=== PATIENT | female | born 1950 | race African-American/Black ===

== ENCOUNTER → 2016-12-29 | Outpatient (CLI) | payer MEDICARE, OTHER ==
--- NOTE | 2016-12-29 16:38 | US ---
EXAMINATION TYPE: US thyroid st tissue head/neck DATE OF EXAM: 12/29/2016 COMPARISON: NONE CLINICAL HISTORY: E04.1 Lt Small Nodule. Possible thyroid nodule, Pt states she has been on thyroid m eds x many years GLAND SIZE: Right Lobe: 2.1 x 0.4 x 0.5 cm Overall Parenchyma: heterogenous Left Lobe: 2.1 x 0.4 x 0.4 cm Overall Parenchyma: heterogeneous Isthmus Thickness: 0.2 cm NODULES RIGHT: # of nodules measured on right: 0 LEFT: # of nodules measured on left: 0 ISTHMUS: # of nodules measured in the isthmus: 0 Bilateral neck scanned, no evidence of lymphadenopathy. Bilateral thyroid small in size and heterogen eous, no evidence of nodules IMPRESSION: Thyroid gland diminutive in size and heterogeneous correlate for thyroiditis. No sizable nodules.
== END | disposition home or self-care (01) ==
LOC: RADUSWWP 16:06
PROVIDERS: ATTEND Family Medicine
DX: E07.89 Other specified disorders of thyroid (principal)
CPT/HCPCS: 76536

== ENCOUNTER 2019-06-25 19:56 | Inpatient (IN) | payer MEDICARE, OTHER ==
[2019-06-25 20:36] LABS: Basophils % (A) 0 %; Eosinophils # (A) 0.2 k/uL (0-0.7); Eosinophils % (A) 2 %; HCT 47.1 % (34.0-46.0); HGB 15.1 gm/dL (11.4-16.0); Lymphocytes # (A) 1.2 k/uL (1.0-4.8); Lymphocytes % (A) 9 %; MCH 29.4 pg (25.0-35.0); MCHC 32.2 g/dL (31.0-37.0); MCV 91.4 fL (80.0-100.0); Mean Platelet Volume 8.4; Monocytes # (A) 0.4 k/uL (0-1.0); Monocytes % (A) 3 %; Neutrophils # (A) 11.6 k/uL (1.3-7.7); Neutrophils % (A) 86 %; Platelet Count 395 k/uL (150-450); RBC 5.15 m/uL (3.80-5.40); WBC 13.5 k/uL (3.8-10.6)
[2019-06-25 20:44] LABS: Albumin 4.6 g/dL (3.5-5.0); Calcium 10.4 mg/dL (8.4-10.2); Magnesium 1.6 mg/dL (1.6-2.3); Partial Thromboplastin Time 22.9 sec (22.0-30.0); Potassium 2.9 mmol/L (3.5-5.1); Prothrombin Time 10.7 sec (9.0-12.0); Total Bilirubin 1.5 mg/dL (0.2-1.3); Total Protein 8.4 g/dL (6.3-8.2)
[2019-06-25] MEDS ORDERED: IPRATROPIUM-ALBUTEROL 3 ML NEB INHALATION STA (20:48)
--- NOTE | 2019-06-25 21:01 | XR ---
EXAMINATION TYPE: XR chest 2V DATE OF EXAM: 06/25/2019 COMPARISON: 11/10/2009 HISTORY: Chest pain TECHNIQUE: Single view FINDINGS: Heart and mediastinum are normal. Lungs are clear. Diaphragm is normal. Bony thorax is inta ct. IMPRESSION: No active cardiopulmonary disease. Normal chest. No adverse change compared to old exam.
[2019-06-25] MEDS ORDERED: MAGNESIUM SULFATE-D5W PMX 1 GM in DEXTROSE/WATER 1 100ML.BAG IVPB ONE ×2 (21:55→23:13)
[2019-06-25] MEDS ORDERED: SODIUM CHLORIDE 0.9% 1,000 ML IV STA (22:19)
[2019-06-25] MEDS: POTASSIUM CHLORIDE ER 20 MEQ TAB.ER PO STA ×2 (22:45→22:56)
--- NOTE | 2019-06-25 23:01 | ED ---
General Adult HPI - General Chief complaint: Recheck/Abnormal Lab/Rx Stated complaint: Chest Pain Time Seen by Provider: 06/25/19 20:00 Source: patient, family, EMS, RN notes reviewed, old records reviewed Mode of arrival: EMS Limitations: no limitations - History of Present Illness Initial comments: This is a 68-year-old female with a history of COPD who was sent here from [place] because of concerns for a STEMI. Patient went there because she's been having upper respiratory symptoms for the past week or 2 with shortness of breath is getting progressively worse. She had a cough with clear phlegm no overt fevers chills or sweats she is tired all the time and has some decrease oral intake. No overt chest pain no peripheral edema no other modifying factors at this time. - Related Data Home Medications Medication Instructions Recorded Confirmed Levothyroxine Sodium [Synthroid] 175 mcg PO DAILY 06/25/19 06/25/19 Simvastatin [Zocor] 20 mg PO DAILY 06/25/19 06/25/19 amLODIPine [Norvasc] 10 mg PO DAILY 06/25/19 06/25/19 Allergies Allergy/AdvReac Type Severity Reaction Status Date / Time No Known Allergies Allergy Verified 06/25/19 23:00 Review of Systems ROS Statement: Those systems with pertinent positive or pertinent negative responses have been documented in the HPI. ROS Other: All systems not noted in ROS Statement are negative. Past Medical History Past Medical History: Hyperlipidemia, Hypertension, Pneumonia History of Any Multi-Drug Resistant Organisms: None Reported Past Surgical History: No Surgical Hx Reported Past Psychological History: No Psychological Hx Reported Smoking Status: Light tobacco smoker Past Alcohol Use History: None Reported Past Drug Use History: None Reported General Exam - General Exam Comments Initial Comments: This is a well-developed asthenic appearing female who is awake alert but yvonne ewhat lethargic she is noted to be very tachycardic Limitations: no limitations General appearance: alert, lethargic Head exam: Present: atraumatic, normocephalic, normal inspection Eye exam: Present: normal appearance, PERRL, EOMI. Absent: scleral icterus, conjunctival injection, periorbital swelling ENT exam: Present: mucous membranes dry Neck exam: Present: normal inspection, full ROM, other (No stridor JVD or bruits) Respiratory exam: Present: accessory muscle use, decreased breath sounds. Absent: respiratory distress, wheezes, rales, rhonchi, stridor Cardiovascular Exam: Present: normal rhythm, tachycardia, normal heart sounds. Absent: systolic murmur, diastolic murmur, rubs, gallop, clicks GI/Abdominal exam: Present: soft, normal bowel sounds. Absent: distended, tenderness, guarding, rebound, rigid Extremities exam: Present: normal inspection, full ROM, normal capillary refill. Absent: tenderness, pedal edema, joint swelling, calf tenderness Back exam: Present: normal inspection Neurological exam: Present: alert, oriented X3, CN II-XII intact Psychiatric exam: Present: normal affect, normal mood Skin exam: Present: warm, dry, intact, normal color. Absent: rash Course Vital Signs 06/25/19 06/25/19 06/25/19 19:59 20:56 21:00 Temperature 97.8 F Pulse Rate 135 H 134 H Respiratory 16 16 Rate Blood Pressure 144/98 O2 Sat by Pulse 100 Oximetry 06/25/19 06/25/19 06/25/19 21:06 22:00 22:56 Temperature 97.6 F Pulse Rate 134 H 140 H Respiratory 22 16 Rate Blood Pressure 140/85 O2 Sat by Pulse 96 Oximetry - Reevaluation(s) Reevaluation #1: 06/25/19 23:07 Reevaluation the patient after the initial encounter reveals some slight improvement in her aeration. She was noted however to be hypo-ketonemia awake and borderline hypomagnesemia. She is still tachycardic on the monitor. Medical Decision Making - Medical Decision Making I did discuss the findings with patient family as well as with Dr. Feliz. Patient be admitted for continued treatment of COPD exacerbation dehydration and electrolyte imbalance. - Lab Data Result diagrams: 06/25/19 20:05 06/25/19 20:05 Lab Results 06/25/19 06/25/19 06/25/19 Range/Units 20:05 20:05 20:05 WBC 13.5 H (3.8-10.6) k/uL RBC 5.15 (3.80-5.40) m/uL Hgb 15.1 (11.4-16.0) gm/dL Hct 47.1 H (34.0-46.0) % MCV 91.4 (80.0-100.0) fL MCH 29.4 (25.0-35.0) pg MCHC 32.2 (31.0-37.0) g/dL RDW 14.0 (11.5-15.5) % Plt Count 395 (150-450) k/uL Neutrophils % 86 % Lymphocytes % 9 % Monocytes % 3 % Eosinophils % 2 % Basophils % 0 % Neutrophils # 11.6 H (1.3-7.7) k/uL Lymphocytes # 1.2 (1.0-4.8) k/uL Monocytes # 0.4 (0-1.0) k/uL Eosinophils # 0.2 (0-0.7) k/uL Basophils # 0.0 (0-0.2) k/uL PT (9.0-12.0) sec INR (<1.2) APTT (22.0-30.0) sec Sodium 144 (137-145) mmol/L Potassium 2.9 L (3.5-5.1) mmol/L Chloride 90 L (98-107) mmol/L Carbon Dioxide 28 (22-30) mmol/L Anion Gap 26 mmol/L BUN 6 L (7-17) mg/dL Creatinine 1.49 H (0.52-1.04) mg/dL Est GFR (CKD-EPI)AfAm 42 (>60 ml/min/1.73 sqM) Est GFR (CKD-EPI)NonAf 36 (>60 ml/min/1.73 sqM) Glucose 118 H (74-99) mg/dL Calcium 10.4 H (8.4-10.2) mg/dL Magnesium 1.6 (1.6-2.3) mg/dL Total Bilirubin 1.5 H (0.2-1.3) mg/dL AST 45 H (14-36) U/L ALT 23 (9-52) U/L Alkaline Phosphatase 123 (38-126) U/L Creatine Kinase 46 (30-135) U/L Troponin I (0.000-0.034) ng/mL NT-Pro-B Natriuret Pep 1240 pg/mL Total Protein 8.4 H (6.3-8.2) g/dL Albumin 4.6 (3.5-5.0) g/dL Lipase 106 (23-300) U/L 06/25/19 06/25/19 Range/Units 20:05 20:05 WBC (3.8-10.6) k/uL RBC (3.80-5.40) m/uL Hgb (11.4-16.0) gm/dL Hct (34.0-46.0) % MCV (80.0-100.0) fL MCH (25.0-35.0) pg MCHC (31.0-37.0) g/dL RDW (11.5-15.5) % Plt Count (150-450) k/uL Neutrophils % % Lymphocytes % % Monocytes % % Eosinophils % % Basophils % % Neutrophils # (1.3-7.7) k/uL Lymphocytes # (1.0-4.8) k/uL Monocytes # (0-1.0) k/uL Eosinophils # (0-0.7) k/uL Basophils # (0-0.2) k/uL PT 10.7 (9.0-12.0) sec INR 1.0 (<1.2) APTT 22.9 (22.0-30.0) sec Sodium (137-145) mmol/L Potassium (3.5-5.1) mmol/L Chloride (98-107) mmol/L Carbon Dioxide (22-30) mmol/L Anion Gap mmol/L BUN (7-17) mg/dL Creatinine (0.52-1.04) mg/dL Est GFR (CKD-EPI)AfAm (>60 ml/min/1.73 sqM) Est GFR (CKD-EPI)NonAf (>60 ml/min/1.73 sqM) Glucose (74-99) mg/dL Calcium (8.4-10.2) mg/dL Magnesium (1.6-2.3) mg/dL Total Bilirubin (0.2-1.3) mg/dL AST (14-36) U/L ALT (9-52) U/L Alkaline Phosphatase (38-126) U/L Creatine Kinase (30-135) U/L Troponin I 0.027 (0.000-0.034) ng/mL NT-Pro-B Natriuret Pep pg/mL Total Protein (6.3-8.2) g/dL Albumin (3.5-5.0) g/dL Lipase (23-300) U/L - EKG Data -: EKG Interpreted by Me (Sinus tachycardia rate 139 WA interval 164 QRS 58 daily since QTC to 48/377) EKG Comments: Sinus tachycardia 139. Interval 164 QRS 58 QT/QTc to 48/377 right atrial enlargement nonspecific ST-T wave configuration inferior and anterior leads this is compared with prior EKGs as well as low submitted from the clinic. - Radiology Data Radiology results: report reviewed (I did review the imaging and report no acute findings), image reviewed Disposition Clinical Impression: COPD with exacerbation, Dehydration, Hypokalemia Disposition: ADMITTED IP TO THIS HOSP Condition: Fair Referrals: Kirk Feliz MD [Primary Care Provider] - 1-2 days
[2019-06-25] MEDS ORDERED: POTASSIUM CHLORIDE 20 MEQ in WATER FOR INJECTION 1 100ML.BAG IVPB ONE (23:30)
[2019-06-26] MEDS: SODIUM CHLORIDE 0.9% 1,000 ML IV SCH ×4 (00:10→23:44)
[2019-06-26] MEDS: methylPREDNISolone SOD SUCCI 125 MG/2 ML VIAL IV SCH ×5 (02:27→23:45)
[2019-06-26] MEDS: IPRATROPIUM-ALBUTEROL 3 ML NEB INHALATION SCH ×4 (04:00→11:16)
[2019-06-26] MEDS ORDERED: HEPARIN SODIUM,PORCINE 5,000 UNIT/ML 1 ML VIAL IV PRN (04:51)
[2019-06-26] MEDS ORDERED: HEPARIN SOD,PORK IN 0.45% NACL 25,000 UNIT in 0.45% NACL 1 250ML.BAG IV SCH (05:00)
[2019-06-26] MEDS ORDERED: LEVOTHYROXINE 75 MCG TAB PO SCH (06:30)
[2019-06-26 07:16] LABS: Basophils % (A) 0 %; Eosinophils # (A) 0.1 k/uL (0-0.7); Eosinophils % (A) 1 %; HCT 42.6 % (34.0-46.0); HGB 13.8 gm/dL (11.4-16.0); Lymphocytes # (A) 0.9 k/uL (1.0-4.8); Lymphocytes % (A) 6 %; MCH 29.7 pg (25.0-35.0); MCHC 32.3 g/dL (31.0-37.0); MCV 91.8 fL (80.0-100.0); Mean Platelet Volume 9.3; Monocytes # (A) 0.5 k/uL (0-1.0); Monocytes % (A) 3 %; Neutrophils # (A) 13.5 k/uL (1.3-7.7); Neutrophils % (A) 90 %; Platelet Count 308 k/uL (150-450); RBC 4.64 m/uL (3.80-5.40); RDW 13.9 % (11.5-15.5)
[2019-06-26 11:58] LABS: T4, Free (Free Thyroxine) 2.52 ng/dL (0.78-2.19)
[2019-06-26] MEDS: ATORVASTATIN 10 MG TAB PO SCH (14:47)
[2019-06-26] MEDS: LEVOTHYROXINE 100 MCG TAB PO SCH (14:47)
[2019-06-26] MEDS: amLODIPine 10 MG TAB PO SCH (14:47)
--- NOTE | 2019-06-26 15:43 | P.CRDCN ---
History of Present Illness Consult date: 06/26/19 Requesting physician: Kirk Feliz Reason for Consult (text): Sinus tachycardia Chief complaint: Shortness of breath History of present illness: This is a 68-year-old -[place] female with history of COPD, nicotine dependence, hypothyroidism, hypertension, hyperlipidemia, who felt over the past few days that she's been having cold, [facility], and possibly get started on an antibiotic. She's been having upper respiratory symptoms as well as associated chills and cough. She states that she's been coughing up clear sputum for the most part. She's been extremely tired as well over the past few days. She denies any chest discomfort, has been somewhat short of breath, denies any palpitations or feeling her heart racing. Apparently at the [facility] they were concerned about the patient's EKG and recommended she come to the hospital for further evaluation and treatment. Chest x-ray on presentation here did not show any active cardiopulmonary disease. Initial EKG showed a sinus tachycardia with nonspecific ST-T wave changes. Blood pressure 128/60 with a heart rate in the 1:30 range, 99% on room air. Afebrile. White blood cell count 13.5 on admission, 15 today, hemoglobin 13.8, platelet count 308. Sodium 144, potassium 2.9, chloride 90, CO2 28, BUN 6, creatinine 1.4, magnesium 1.6, total bilirubin 1.5, AST 45 ALT 23 BNP 1240. Troponin 0.07, 0.051, 0.034. TSH less than 0.015 with a free T4 of 2.5. Patient is currently on Norvasc 10 mg daily, Lipitor 10 mg daily, IV heparin, albuterol, Synthroid 175 g daily, magnesium replacement was given, she's also on IV Solu-Medrol, potassium was also replaced per protocol. She continues to have a heart rate in the 130 range at the time of our examination. We will discontinue the albuterol at this time because of the tachycardia, we will also decrease the dose of Synthroid the patient is receiving, she is currently on 175 g, we will decrease that to 100 g. Continue IV fluids at 100 mL per hour. Obtain echocardiogram with Doppler study. Overall at the time of my examination, patient other than feeling tired had no overt complaints. Past Medical History Past Medical History: Asthma, Eye Disorder, Hyperlipidemia, Hypertension, Pneumonia, Thyroid Disorder Additional Past Medical History / Comment(s): Bronchitis, hypothyroid, L eye glaucoma. History of Any Multi-Drug Resistant Organisms: None Reported Past Surgical History: Tubal Ligation Past Anesthesia/Blood Transfusion Reactions: No Reported Reaction Smoking Status: Light tobacco smoker - Past Family History Father History Unknown: Yes Additional Family Medical History / Comment(s): Father when pt was a baby Mother Family Medical History: No Reported History Additional Family Medical History / Comment(s): Mother was healthy. She is . Medications and Allergies Home Medications Medication Instructions Recorded Confirmed Type Levothyroxine Sodium [Synthroid] 175 mcg PO DAILY 06/25/19 06/25/19 History Simvastatin [Zocor] 20 mg PO DAILY 06/25/19 06/25/19 History amLODIPine [Norvasc] 10 mg PO DAILY 06/25/19 06/25/19 History Allergies Allergy/AdvReac Type Severity Reaction Status Date / Time No Known Allergies Allergy Verified 06/25/19 23:00 Physical Exam Vitals: Vital Signs Temp Pulse Pulse Resp BP BP Pulse Ox 06/26/19 14:56 97.9 F 140 H 18 128/65 99 06/26/19 11:25 130 H 06/26/19 11:16 123 H 06/26/19 11:00 135 H 16 119/72 100 06/26/19 09:42 128 H 06/26/19 09:40 128 H 18 128/75 100 06/26/19 08:14 126 H 18 127/73 06/26/19 08:00 126 H 20 127/73 100 06/26/19 07:00 129 H 7 L 127/73 100 06/26/19 06:41 129 H 18 127/73 100 06/26/19 06:00 130 H 13 134/79 100 06/26/19 05:45 98.6 F 130 H 19 134/79 100 06/26/19 05:00 125 H 17 133/80 100 06/26/19 04:01 124 H 06/26/19 04:00 125 H 6 L 133/80 06/26/19 03:53 125 H 19 126/76 100 06/26/19 03:00 134 H 10 L 126/76 100 06/26/19 02:00 131 H 131 H 18 136/83 100 06/26/19 01:33 131 H 19 136/83 100 06/26/19 01:00 129 H 15 100 06/26/19 00:41 135 H 9 L 100 06/26/19 00:16 129 H 16 134/80 100 06/25/19 23:21 97.9 F 132 H 20 142/86 100 06/25/19 22:56 97.6 F 140 H 16 140/85 96 06/25/19 22:00 22 06/25/19 21:06 134 H 06/25/19 21:00 16 06/25/19 20:56 134 H 06/25/19 19:59 97.8 F 135 H 16 144/98 100 Intake and Output 06/26/19 06/26/19 06/26/19 06:59 14:59 22:59 Intake Total 70.355 0 Balance 70.355 0 Intake: Intake, IV Titration 70.355 0 Amount Heparin Sod,Pork in 0.45% 70.355 0 NaCl 25,000 unit In 0.45 % NaCl 1 250ml.bag @ 18 UNITS/KG/HR 8.165 mls/hr IV .Q24H [facility] Rx#: [id number] Other: Weight 45.359 kg PHYSICAL EXAMINATION: GENERAL: 68-year-old frail and thin -Iraqi female in no acute distress at the time of my examination HEENT: Head is atraumatic, normocephalic. Pupils equal, round. Sclera anicteric. Conjunctiva are clear. Mucous membranes of the mouth are moist. Neck is supple. There is no elevated jugular venous pressure. No carotid bruit is heard. HEART EXAMINATION: Heart S1 and S2 tachycardic CHEST EXAMINATION: Lungs reveal diminished air entry to the bases with fine wheezing heard ABDOMEN: Soft, nontender. Bowel sounds are heard. No organomegaly noted. EXTREMITIES: 2+ peripheral pulses with no evidence of peripheral edema and no calf tenderness noted. NEUROLOGIC patient is awake, alert and oriented 3 . Results 06/26/19 05:37 06/25/19 20:05 Cardiac Enzymes 06/25/19 06/25/19 06/26/19 Range/Units 20:05 20:05 02:57 AST 45 H (14-36) U/L Troponin I 0.027 0.051 H* (0.000-0.034) ng/mL 06/26/19 Range/Units 12:06 AST (14-36) U/L Troponin I 0.034 (0.000-0.034) ng/mL Coagulation 06/25/19 06/26/19 Range/Units 20:05 12:06 PT 10.7 (9.0-12.0) sec APTT 22.9 89.3 H (22.0-30.0) sec CBC 06/25/19 06/26/19 Range/Units 20:05 05:37 WBC 13.5 H 15.0 H (3.8-10.6) k/uL RBC 5.15 4.64 (3.80-5.40) m/uL Hgb 15.1 13.8 (11.4-16.0) gm/dL Hct 47.1 H 42.6 (34.0-46.0) % Plt Count 395 308 (150-450) k/uL Comprehensive Metabolic Panel 06/25/19 Range/Units 20:05 Sodium 144 (137-145) mmol/L Potassium 2.9 L (3.5-5.1) mmol/L Chloride 90 L (98-107) mmol/L Carbon Dioxide 28 (22-30) mmol/L BUN 6 L (7-17) mg/dL Creatinine 1.49 H (0.52-1.04) mg/dL Glucose 118 H (74-99) mg/dL Calcium 10.4 H (8.4-10.2) mg/dL AST 45 H (14-36) U/L ALT 23 (9-52) U/L Alkaline Phosphatase 123 (38-126) U/L Total Protein 8.4 H (6.3-8.2) g/dL Albumin 4.6 (3.5-5.0) g/dL Current Medications Generic Name Dose Route Start Last Admin Trade Name Freq PRN Reason Stop Dose Admin Albuterol/Ipratropium 3 ml 06/26/19 00:00 06/26/19 11:16 Duoneb 0.5 Mg-3 Mg/3 Ml Soln INHALATION 3 ml RT-Q4H ROD Administration Amlodipine Besylate 10 mg 06/26/19 09:00 06/26/19 14:47 Norvasc PO 10 mg DAILY ROD Administration Atorvastatin Calcium 10 mg 06/26/19 09:00 06/26/19 14:47 Lipitor PO 10 mg DAILY ROD Administration Heparin Sodium (Porcine) 0 unit 06/26/19 04:51 Heparin IV PER PROTOCOL PRN Low PTT Protocol Sodium Chloride 1,000 mls @ 100 mls/hr 06/25/19 23:15 06/26/19 14:47 Saline 0.9% IV 100 mls/hr .Q10H ROD Administration Heparin Sodium/Sodium Chloride 250 mls @ 8.165 mls/hr 06/26/19 05:00 06/26/19 15:12 25,000 unit/ Sodium Chloride IV 11.38 units/kg/hr .Q24H ROD 5.16 mls/hr Titration Protocol 18 UNITS/KG/HR Levothyroxine Sodium 100 mcg 06/26/19 06:30 06/26/19 14:47 Synthroid PO 100 mcg DAILY@0630 ROD Administration Levothyroxine Sodium 75 mcg 06/26/19 06:30 06/26/19 14:46 Synthroid PO 75 mcg DAILY@0630 ROD Administration Methylprednisolone Sodium Succinate 60 mg 06/26/19 00:00 06/26/19 14:46 Solu-Medrol IV 60 mg Q6HR ROD Administration Intake and Output 06/26/19 06/26/19 06/26/19 06:59 14:59 22:59 Intake Total 70.355 0 Balance 70.355 0 Intake: Intake, IV Titration 70.355 0 Amount Heparin Sod,Pork in 0.45% 70.355 0 NaCl 25,000 unit In 0.45 % NaCl 1 250ml.bag @ 18 UNITS/KG/HR 8.165 mls/hr IV .Q24H [facility] Rx#: [id number] Other: Weight 45.359 kg Patient Weight 06/27/19 06:59 Weight 45.359 kg 06/26/19 05:37 06/25/19 20:05 EKG Interpretations (text) EKG shows a sinus tachycardia Assessment and Plan Plan: Assessment and plan #1 symptoms of upper respiratory congestion with associated cough and mild chills at home, possible acute tracheobronchitis #2 shortness of breath, mildly elevated BNP level suggesting mild congestive heart failure, could be secondary to persistent tachycardia #3 sinus tachycardia with a heart rate in the 1:30 range #4 her hypothyroidism, TSH 0.015 with a free T4 of 2.5, patient was taking 175 g of Synthroid daily #5 history of hypothyroidism #6 renal insufficiency, likely secondary to dehydration #7 hypokalemia, potassium 2.9 on admission #8 hypomagnesemia #9 abnormal troponin, likely secondary to tachycardia Plan We will obtain an echocardiogram with Doppler study. We will also decrease the dose of Synthroid to 100 g daily. Discontinue albuterol, replace magnesium and potassium. Continue IV fluids at 100 mL per hour. Check lytes BUN creatinine and magnesium in the morning. Further recommendations to follow. DNP note has been reviewed, I agree with a documented findings and plan of care. Patient was seen and examined.
--- NOTE | 2019-06-26 18:38 | HP ---
HISTORY AND PHYSICAL CHIEF COMPLAINT: Weakness, dehydration and shortness of breath. HISTORY OF PRESENT ILLNESS: This is another admission for this 68-year-old -[place] female who presented to the emergency room for treatment. She had gone to [facility] because she was weak and dehydrated. They apparently thought she was having an acute OK and sent her to the emergency room here. In the emergency room, her troponin was negative. She was extremely dehydrated, however, and her potassium was low. It is very difficult to get a history from her because her speech is hard to understand and she is extremely dehydrated. There is no history of vomiting, abdominal pain, chills, fever, cough, etc. Past medical history, family history, and personal and social histories demonstrate that she is NOT ALLERGIC TO ANY MEDICATION. She is she is supposed to be on amlodipine 10 mg once a day, simvastatin 20 once a day, levothyroxine 0.175 once a day, iron, vitamin D3. The remainder of her history is unremarkable. She does not smoke. She does not drink. PHYSICAL EXAMINATION: Blood pressure was 102/64 with a pulse of 130 and regular. Respirations were 36. She was afebrile. In general she appeared to be extremely dehydrated. Head, ears, eyes, nose, mouth and throat were normal except for dehydration in the mucous membranes, and she had a chronic right exotropia. Neck veins were not distended. Carotids were normal. Chest was clear. Cardiac exam demonstrated sinus tachycardia with a rate of around 125 per minute. The abdomen was flat, soft and nontender without any visceromegaly or masses. Bowel sounds were present. Extremities were normal. Neurologically she was intact. ADMITTING DIAGNOSES: She is admitted to the hospital with the diagnoses: 1. Dehydration. 2. Nausea and vomiting. 3. Gastroenteritis. 4. Hypotension. 5. Rule out myocardial infarction. 6. Hypokalemia. PLAN: 1. Bed rest. 2. IV fluids. 3. Repeat troponins. 4. Correct electrolyte imbalance. MMODL / IJN: [id number] /
[2019-06-26 21:35] LABS: Glucose,Whole Blood 116 mg/dL (75-99)
--- NOTE | 2019-06-26 21:49 | NM ---
EXAMINATION TYPE: NM pul perfusion DATE OF EXAM: 06/26/2019 COMPARISON: NONE HISTORY: Short of breath Following administration of 5.1 mCi Tc 99m MAA. Images obtained post injection. FINDINGS: There is a linear perfusion defect along the major fissure of the right lung. There is a segmental si zed perfusion defect in the superior segment right lower lobe. IMPRESSION: Single segmental sized perfusion defect in the superior segment of the right lower lobe. The chest x- ray today shows no pulmonary consolidation. There is intermediate probability of pulmonary embolism.
[2019-06-27] MEDS: methylPREDNISolone SOD SUCCI 125 MG/2 ML VIAL IV SCH ×4 (00:15→18:12)
[2019-06-27] MEDS: LEVOTHYROXINE 100 MCG TAB PO SCH (05:47)
[2019-06-27 06:04] LABS: Glucose,Whole Blood 117 mg/dL (75-99)
[2019-06-27 07:20] LABS: Basophils % (A) 0 %; Eosinophils # (A) 0.1 k/uL (0-0.7); Eosinophils % (A) 1 %; HCT 34.5 % (34.0-46.0); Hypochromasia Marked; Lymphocytes % (A) 7 %; MCH 29.8 pg (25.0-35.0); MCHC 30.9 g/dL (31.0-37.0); MCV 96.2 fL (80.0-100.0); Mean Platelet Volume 8.9; Monocytes # (A) 0.3 k/uL (0-1.0); Monocytes % (A) 2 %; Neutrophils # (A) 13.5 k/uL (1.3-7.7); Neutrophils % (A) 90 %; Platelet Count 303 k/uL (150-450); RBC 3.59 m/uL (3.80-5.40); RDW 13.9 % (11.5-15.5); WBC 14.9 k/uL (3.8-10.6)
[2019-06-27 07:23] LABS: HGB 10.7 gm/dL (11.4-16.0)
[2019-06-27] MEDS: ATORVASTATIN 10 MG TAB PO SCH (07:57)
[2019-06-27] MEDS: amLODIPine 10 MG TAB PO SCH (07:57)
[2019-06-27 10:28] LABS: Calcium 8.4 mg/dL (8.4-10.2)
[2019-06-27 10:35] LABS: Potassium 2.6 mmol/L (3.5-5.1)
[2019-06-27] MEDS ORDERED: Potassium Replacement Protocol 1 EACH MISC MISCELLANE PRN (10:54)
[2019-06-27] MEDS: POTASSIUM CHLORIDE ER 20 MEQ TAB.ER PO SCH ×5 (11:43→21:44)
[2019-06-27] MEDS: METOPROLOL TARTRATE 25 MG TAB PO SCH ×2 (11:43→21:43)
[2019-06-27 11:48] LABS: Glucose,Whole Blood 137 mg/dL (75-99)
--- NOTE | 2019-06-27 12:10 | P.PN ---
Subjective Progress Note Date: 06/27/19 This is a 68-year-old -Romanian female with history of COPD, nicotine dependence, hypothyroidism, hypertension, hyperlipidemia, who felt over the past few days that she's been having cold, she went to [facility] expressed to get evaluated, and possibly get started on an antibiotic. She's been having upper respiratory symptoms as well as associated chills and cough. She states that she's been coughing up clear sputum for the most part. She's been extremely tired as well over the past few days. She denies any chest discomfort, has been somewhat short of breath, denies any palpitations or feeling her heart racing. Apparently at the [facility] expressed they were concerned about the patient's EKG and recommended she come to the hospital for further evaluation and treatment. Chest x-ray on presentation here did not show any active cardiopulmonary disease. Initial EKG showed a sinus tachycardia with nonspecific ST-T wave changes. Blood pressure 128/60 with a heart rate in the 1:30 range, 99% on room air. Afebrile. White blood cell count 13.5 on admission, 15 today, hemoglobin 13.8, platelet count 308. Sodium 144, potassium 2.9, chloride 90, CO2 28, BUN 6, creatinine 1.4, magnesium 1.6, total bilirubin 1.5, AST 45 ALT 23 BNP 1240. Troponin 0.07, 0.051, 0.034. TSH less than 0.015 with a free T4 of 2.5. Patient is currently on Norvasc 10 mg daily, Lipitor 10 mg daily, IV heparin, albuterol, Synthroid 175 g daily, magnesium replacement was given, she's also on IV Solu-Medrol, potassium was also replaced per protocol. She continues to have a heart rate in the 130 range at the time of our examination. We will discontinue the albuterol at this time because of the tachycardia, we will also decrease the dose of Synthroid the patient is receiving, she is currently on 175 g, we will decrease that to 100 g. Continue IV fluids at 100 mL per hour. Obtain echocardiogram with Doppler study. Overall at the time of my examination, patient other than feeling tired had no overt complaints. 06/27/2019 Patient was seen and examined this morning, continues to be tachycardic with a heart rate in the 120 range. She did undergo a VQ scan which showed an immediate probability for pulmonary embolism, patient had some episodes of coughing up blood, and the heparin was discontinued. We decreased her dose of Synthroid yesterday, today we will discontinue the Synthroid completely and go up a little on her beta tiarra for more optimal heart rate control. Objective - Vital Signs Vital signs: Vital Signs Temp 97.6 F 06/27/19 11:39 Pulse 135 H 06/27/19 11:39 Resp 18 06/27/19 11:39 BP 129/67 06/27/19 11:39 Pulse Ox 100 06/27/19 11:39 Intake & Output 06/26/19 06/27/19 06/27/19 18:59 06:59 18:59 Intake Total 70.355 360 Balance 70.355 360 Weight 45.359 kg 47.4 kg Intake: Intake, IV Titration 70.355 Amount Heparin Sod,Pork in 0.45% 70.355 NaCl 25,000 unit In 0.45 % NaCl 1 250ml.bag @ 18 UNITS/KG/HR 8.165 mls/hr IV .Q24H [facility] Rx#: [id number] Oral 360 Other: Voiding Method Incontinent Incontinent Incontinent - Exam PHYSICAL EXAMINATION: GENERAL: 68-year-old frail and thin -Romanian female in no acute distress at the time of my examination HEENT: Head is atraumatic, normocephalic. Pupils equal, round. Sclera anicteric. Conjunctiva are clear. Mucous membranes of the mouth are moist. Neck is supple. There is no elevated jugular venous pressure. No carotid bruit is heard. HEART EXAMINATION: Heart S1 and S2 tachycardic CHEST EXAMINATION: Lungs reveal diminished air entry to the bases with fine wheezing heard ABDOMEN: Soft, nontender. Bowel sounds are heard. No organomegaly noted. EXTREMITIES: 2+ peripheral pulses with no evidence of peripheral edema and no calf tenderness noted. NEUROLOGIC patient is awake, alert and oriented 3 - Labs CBC & Chem 7: 06/27/19 06:23 06/27/19 06:23 Labs: Abnormal Lab Results - Last 24 Hours (Table) 06/26/19 06/26/19 06/27/19 Range/Units 12:06 21:34 06:02 WBC (3.8-10.6) k/uL RBC (3.80-5.40) m/uL Hgb (11.4-16.0) gm/dL MCHC (31.0-37.0) g/dL Neutrophils # (1.3-7.7) k/uL APTT 89.3 H (22.0-30.0) sec Sodium (137-145) mmol/L Potassium (3.5-5.1) mmol/L Carbon Dioxide (22-30) mmol/L Glucose (74-99) mg/dL POC Glucose (mg/dL) 116 H 117 H (75-99) mg/dL 06/27/19 06/27/19 06/27/19 Range/Units 06:23 06:23 11:34 WBC 14.9 H (3.8-10.6) k/uL RBC 3.59 L (3.80-5.40) m/uL Hgb 10.7 L D (11.4-16.0) gm/dL MCHC 30.9 L (31.0-37.0) g/dL Neutrophils # 13.5 H (1.3-7.7) k/uL APTT (22.0-30.0) sec Sodium 148 H (137-145) mmol/L Potassium 2.6 L* (3.5-5.1) mmol/L Carbon Dioxide 17 L (22-30) mmol/L Glucose 128 H (74-99) mg/dL POC Glucose (mg/dL) 137 H (75-99) mg/dL Assessment and Plan Plan: Assessment and plan #1 symptoms of upper respiratory congestion with associated cough and mild chills at home, possible acute tracheobronchitis #2 shortness of breath, mildly elevated BNP level suggesting mild congestive heart failure, could be secondary to persistent tachycardia #3 sinus tachycardia with a heart rate in the 1:30 range #4 her hypothyroidism, TSH 0.015 with a free T4 of 2.5, patient was taking 175 g of Synthroid daily #5 history of hypothyroidism #6 renal insufficiency, likely secondary to dehydration #7 hypokalemia, potassium 2.9 on admission #8 hypomagnesemia #9 abnormal troponin, likely secondary to tachycardia Plan We'll discontinue the Synthroid completely, follow-up on the dose of beta tiarra. Review echo. DNP note has been reviewed, I agree with a documented findings and plan of care. Patient was seen and examined.
--- NOTE | 2019-06-27 13:08 | PN ---
PROGRESS NOTE DATE OF SERVICE: 06/27/2019 CHIEF COMPLAINT: COPD and dehydration. HISTORY OF PRESENT ILLNESS: This lady is about the same. Her IV has only been at keep open. PHYSICAL EXAMINATION: She is awake, alert, but very weak and speech is difficult to understand. Skin is extremely dry. Head, ears, eyes, nose, mouth, and throat were normal. Chest is clear. She still has sinus tachycardia. IMPRESSION: 1. Dehydration. 2. Tachycardia. 3. Hyperthyroidism. PLAN: 1. Stop thyroid. 2. IV fluids and rehydrate. MMODL / IJN: [id number] /
[2019-06-27] MEDS: DEXTROSE 5%-0.2% NACL 1,000 ML IV SCH ×2 (15:54→23:30)
[2019-06-27 17:21] LABS: Glucose,Whole Blood 191 mg/dL (75-99)
[2019-06-27 20:29] LABS: Glucose,Whole Blood 219 mg/dL (75-99)
[2019-06-28 06:11] LABS: Glucose,Whole Blood 244 mg/dL (75-99)
[2019-06-28] MEDS: methylPREDNISolone SOD SUCCI 125 MG/2 ML VIAL IV SCH (06:27)
[2019-06-28 06:56] LABS: Basophils % (A) 0 %; Eosinophils # (A) 0.2 k/uL (0-0.7); Eosinophils % (A) 2 %; HCT 26.6 % (34.0-46.0); Lymphocytes # (A) 0.7 k/uL (1.0-4.8); Lymphocytes % (A) 6 %; MCH 29.5 pg (25.0-35.0); MCHC 32.2 g/dL (31.0-37.0); MCV 91.6 fL (80.0-100.0); Mean Platelet Volume 8.5; Monocytes # (A) 0.4 k/uL (0-1.0); Monocytes % (A) 3 %; Neutrophils # (A) 11.3 k/uL (1.3-7.7); Neutrophils % (A) 89 %; Platelet Count 243 k/uL (150-450); RBC 2.91 m/uL (3.80-5.40); RDW 13.9 % (11.5-15.5); WBC 12.7 k/uL (3.8-10.6)
[2019-06-28 07:00] LABS: HGB 8.6 gm/dL (11.4-16.0)
[2019-06-28] MEDS ORDERED: Potassium Replacement Protocol 1 EACH MISC MISCELLANE PRN (07:47)
--- NOTE | 2019-06-28 12:12 | P.PN ---
Subjective Progress Note Date: 06/28/19 This is a 68-year-old -Croat[place] female with history of COPD, nicotine dependence, hypothyroidism, hypertension, hyperlipidemia, who felt over the past few days that she's been having cold, she went to [facility] expressed to get evaluated, and possibly get started on an antibiotic. She's been having upper respiratory symptoms as well as associated chills and cough. She states that she's been coughing up clear sputum for the most part. She's been extremely tired as well over the past few days. She denies any chest discomfort, has been somewhat short of breath, denies any palpitations or feeling her heart racing. Apparently at the [facility] expressed they were concerned about the patient's EKG and recommended she come to the hospital for further evaluation and treatment. Chest x-ray on presentation here did not show any active cardiopulmonary disease. Initial EKG showed a sinus tachycardia with nonspecific ST-T wave changes. Blood pressure 128/60 with a heart rate in the 1:30 range, 99% on room air. Afebrile. White blood cell count 13.5 on admission, 15 today, hemoglobin 13.8, platelet count 308. Sodium 144, potassium 2.9, chloride 90, CO2 28, BUN 6, creatinine 1.4, magnesium 1.6, total bilirubin 1.5, AST 45 ALT 23 BNP 1240. Troponin 0.07, 0.051, 0.034. TSH less than 0.015 with a free T4 of 2.5. Patient is currently on Norvasc 10 mg daily, Lipitor 10 mg daily, IV heparin, albuterol, Synthroid 175 g daily, magnesium replacement was given, she's also on IV Solu-Medrol, potassium was also replaced per protocol. She continues to have a heart rate in the 130 range at the time of our examination. We will discontinue the albuterol at this time because of the tachycardia, we will also decrease the dose of Synthroid the patient is receiving, she is currently on 175 g, we will decrease that to 100 g. Continue IV fluids at 100 mL per hour. Obtain echocardiogram with Doppler study. Overall at the time of my examination, patient other than feeling tired had no overt complaints. 06/27/2019 Patient was seen and examined this morning, continues to be tachycardic with a heart rate in the 120 range. She did undergo a VQ scan which showed an immediate probability for pulmonary embolism, patient had some episodes of coughing up blood, and the heparin was discontinued. We decreased her dose of Synthroid yesterday, today we will discontinue the Synthroid completely and go up a little on her beta tiarra for more optimal heart rate control. 06/28/2019 Patient seen and examined this morning, complaining of some nausea and mild abdominal discomfort. Hemodynamically stablewe will increase her dose of beta tiarra to 50 mg twice a day, the heart rate is still in the 100-106 range. Objective - Vital Signs Vital signs: Vital Signs Temp 97.4 F L 06/28/19 08:00 Pulse 106 H 06/28/19 08:00 Resp 18 06/28/19 08:00 BP 111/67 06/28/19 08:00 Pulse Ox 100 06/28/19 08:00 Intake & Output 06/27/19 06/28/19 06/28/19 18:59 06:59 18:59 Intake Total 1210 100 Balance 1210 100 Weight 53.5 kg Intake: Intake, IV Titration 800 Amount Sodium Chloride 0.9% 1, 800 000 ml @ 100 mls/hr IV . Q10H [facility] Rx#:[id number] Oral 410 100 Other: Voiding Method Incontinent Incontinent Incontinent # Voids 2 1 - Exam PHYSICAL EXAMINATION: GENERAL: 68-year-old frail and thin -Croatian female in no acute distress at the time of my examination HEENT: Head is atraumatic, normocephalic. Pupils equal, round. Sclera anicteric. Conjunctiva are clear. Mucous membranes of the mouth are moist. Neck is supple. There is no elevated jugular venous pressure. No carotid bruit is heard. HEART EXAMINATION: Heart S1 and S2 tachycardic CHEST EXAMINATION: Lungs reveal diminished air entry to the bases with fine wheezing heard ABDOMEN: Soft, nontender. Bowel sounds are heard. No organomegaly noted. EXTREMITIES: 2+ peripheral pulses with no evidence of peripheral edema and no calf tenderness noted. NEUROLOGIC patient is awake, alert and oriented 3 - Labs CBC & Chem 7: 06/28/19 06:03 06/28/19 06:03 Labs: Abnormal Lab Results - Last 24 Hours (Table) 06/27/19 06/27/19 06/27/19 Range/Units 17:13 19:15 20:27 WBC (3.8-10.6) k/uL RBC (3.80-5.40) m/uL Hgb (11.4-16.0) gm/dL Hct (34.0-46.0) % Neutrophils # (1.3-7.7) k/uL Lymphocytes # (1.0-4.8) k/uL Potassium 2.3 L* (3.5-5.1) mmol/L POC Glucose (mg/dL) 191 H 219 H (75-99) mg/dL 06/28/19 06/28/19 06/28/19 Range/Units 06:03 06:03 06:10 WBC 12.7 H (3.8-10.6) k/uL RBC 2.91 L (3.80-5.40) m/uL Hgb 8.6 L D (11.4-16.0) gm/dL Hct 26.6 L (34.0-46.0) % Neutrophils # 11.3 H (1.3-7.7) k/uL Lymphocytes # 0.7 L (1.0-4.8) k/uL Potassium 2.4 L* (3.5-5.1) mmol/L POC Glucose (mg/dL) 244 H (75-99) mg/dL Assessment and Plan Plan: Assessment and plan #1 symptoms of upper respiratory congestion with associated cough and mild chills at home, possible acute tracheobronchitis #2 shortness of breath, mildly elevated BNP level suggesting mild congestive heart failure, could be secondary to persistent tachycardia #3 sinus tachycardia with a heart rate in the 1:30 range #4 her hypothyroidism, TSH 0.015 with a free T4 of 2.5, patient was taking 175 g of Synthroid daily #5 history of hypothyroidism #6 renal insufficiency, likely secondary to dehydration #7 hypokalemia, potassium 2.9 on admission #8 hypomagnesemia #9 abnormal troponin, likely secondary to tachycardia Plan increase dose of beta tiarra to 50 mg one tablet by mouth twice a day, outpatient workup regarding her hyperthyroidism. DNP note has been reviewed, I agree with a documented findings and plan of care. Patient was seen and examined.
[2019-06-28 12:19] LABS: Glucose,Whole Blood 255 mg/dL (75-99)
[2019-06-28] MEDS: DEXTROSE 5%-0.2% NACL 1,000 ML IV SCH ×3 (13:24→22:53)
[2019-06-28] MEDS: POTASSIUM CHLORIDE 10 MEQ in WATER FOR INJECTION 1 100ML.BAG IVPB SCH ×6 (17:08→22:52)
[2019-06-28] MEDS: ONDANSETRON 4 MG/2 ML VIAL IVP PRN (17:09)
--- NOTE | 2019-06-28 17:12 | PN ---
PROGRESS NOTE CHIEF COMPLAINT: Shortness of breath, dehydration, electrolyte imbalance. HISTORY OF PRESENT ILLNESS: This lady is still struggling with potassium which remains very low. She is still very dehydrated. She is now starting to become nauseated. She has vomited. REVIEW OF SYMPTOMS: She denies abdominal pain. She denies shortness of breath. She has no chest pain. PHYSICAL EXAMINATION: She remains exceedingly dehydrated. Chest is clear. Cardiac exam demonstrates what sounds like sinus rhythm. The abdomen is flat, soft and nontender. Extremities are normal except for poor muscle bulk and dehydration. IMPRESSION: 1. Profound dehydration. 2. Electrolyte imbalance with hypokalemia. 3. Nausea and vomiting. PLAN: 1. Replace potassium. 2. Continue with IV rehydration. MMODL / IJN: [id number] /
[2019-06-28 17:14] LABS: Glucose,Whole Blood 278 mg/dL (75-99)
[2019-06-28] MEDS: POTASSIUM CHLORIDE ER 20 MEQ TAB.ER PO SCH ×2 (17:21→18:48)
[2019-06-28] MEDS: SODIUM CHLORIDE 0.9% 1,000 ML IV SCH ×2 (17:21→18:47)
[2019-06-28] MEDS: amLODIPine 10 MG TAB PO SCH (17:22)
[2019-06-28] MEDS: METOPROLOL TARTRATE 25 MG TAB PO SCH (17:22)
[2019-06-28] MEDS: ATORVASTATIN 10 MG TAB PO SCH (17:22)
[2019-06-28 20:49] LABS: Glucose,Whole Blood 258 mg/dL (75-99)
[2019-06-28] MEDS ORDERED: METOPROLOL TARTRATE 50 MG TAB PO SCH (21:00)
[2019-06-28] MEDS: INSULIN ASPART (NovoLOG) 100 UNIT/ML VIAL SQ SCH ×2 (21:45→22:56)
[2019-06-29 06:08] LABS: Glucose,Whole Blood 167 mg/dL (75-99)
[2019-06-29 07:16] LABS: Basophils % (A) 0 %; Eosinophils # (A) 0.2 k/uL (0-0.7); Eosinophils % (A) 2 %; HCT 26.3 % (34.0-46.0); HGB 8.7 gm/dL (11.4-16.0); Lymphocytes # (A) 1.6 k/uL (1.0-4.8); Lymphocytes % (A) 19 %; MCH 30.3 pg (25.0-35.0); MCV 91.7 fL (80.0-100.0); Mean Platelet Volume 8.5; Monocytes # (A) 0.4 k/uL (0-1.0); Monocytes % (A) 5 %; Neutrophils # (A) 6.4 k/uL (1.3-7.7); Neutrophils % (A) 73 %; Platelet Count 227 k/uL (150-450); RBC 2.87 m/uL (3.80-5.40); RDW 13.4 % (11.5-15.5); WBC 8.7 k/uL (3.8-10.6)
[2019-06-29] MEDS ORDERED: Potassium Replacement Protocol 1 EACH MISC MISCELLANE PRN (08:53)
[2019-06-29] MEDS: POTASSIUM CHLORIDE 10 MEQ in WATER FOR INJECTION 1 100ML.BAG IVPB SCH ×4 (09:31→13:37)
[2019-06-29] MEDS: PANTOPRAZOLE 40 MG/10 ML VIAL IVP SCH (09:32)
--- NOTE | 2019-06-29 10:16 | CONS ---
CONSULTATION DATE OF SERVICE: June 29, 2019. REQUESTING PHYSICIAN: Dr. Feliz. REASON FOR CONSULTATION: Nausea, vomiting, abdominal pain and coffee-ground emesis. HISTORY OF PRESENT ILLNESS: The patient is a 68-year-old female admitted to the hospital 3 days ago when she presented with nausea, vomiting, coffee-ground emesis, some abdominal pain, cough and shortness of breath. Since being in the hospital, she has been complaining of severe nausea. She has been on a regular diet for the last 2 days with minimal oral intake. She also complains of some epigastric discomfort. She has not had any further episodes of emesis in the last 3 days, but continues to have persistent nausea. Hence, we are consulted for further evaluation. The patient denies any prior history of peptic ulcer disease. No recent NSAID use. She is somewhat a poor historian. She also mentioned that she has been having some productive cough. While in the hospital, because of palpitations, Cardiology has been consulted. PAST MEDICAL HISTORY: Significant for hypertension, hypothyroidism, glaucoma, bronchitis. PAST SURGICAL HISTORY: Tubal ligation. MEDICATIONS: At home, Synthroid, Zocor, Norvasc. ALLERGIES: None. SOCIAL HISTORY: Chronic smoker. No alcohol use. FAMILY HISTORY: Father when she was a little baby. Mother . REVIEW OF SYSTEMS: CARDIOPULMONARY: She does complain of some shortness of breath. Some coughing, but it is getting better. Neurology unremarkable. Psychiatric unremarkable. ENT/vision unremarkable. CONSTITUTIONAL: No recent weight loss. No fever, chills, night sweats. HEMATOLOGY unremarkable. PSYCHIATRIC unremarkable. PHYSICAL EXAMINATION: She appears comfortable. No apparent distress. VITAL SIGNS: Stable. Blood pressure is 132/52, pulse 89, temperature 98. HEENT examination unremarkable. Conjunctivae pink. Sclerae anicteric. Oral cavity no lesions. NECK: No JVD or lymph node enlargement. CHEST: Clear to auscultation. HEART: Regular rate and rhythm. ABDOMEN: Soft. There was very minimal tenderness in the epigastric and right upper quadrant area. Rest of the abdomen was benign. Bowel sounds are positive. No organomegaly. EXTREMITIES no pedal edema. SKIN no rashes. NEURO: She is alert and oriented x3. No focal deficits. LABS: At admission, WBC 13.5 and hemoglobin 15.1. Today hemoglobin is 8.7, WBC 8.7, platelets normal. Basic metabolic panel is within normal limits. Stool occult blood is still pending. IMPRESSION: 1. Abdominal pain associated with intense nausea but no emesis. She did have 1 episode of coffee-grounds emesis at the time of admission to the hospital. She dropped hemoglobin from 15-8.6 g/dL. Currently has no clinical evidence of active ongoing bleeding. Stool occult blood is still pending. Rule out upper gastrointestinal pathology/peptic ulcer disease. 2. Acute bronchitis. 3. Sinus tachycardia. Cardiology following the patient closely. Presently on beta blockers. 4. Electrolyte imbalance, being corrected. 5. Slightly elevated troponin. Cardiology following. RECOMMENDATIONS: 1. Change in her diet to a clear liquid diet as she is not tolerating regular diet. 2. Protonix 40 mg daily. 3. We will schedule for an upper endoscopy to evaluate her symptoms further. Discussed with the patient, risks, benefits and complications of procedure and she is agreeable to it. Thank you for this consultation. JOHANA / ELIEN: [id number] /
[2019-06-29 12:01] LABS: Glucose,Whole Blood 168 mg/dL (75-99)
[2019-06-29] MEDS: INSULIN ASPART (NovoLOG) 100 UNIT/ML VIAL SQ SCH ×3 (12:34→22:16)
[2019-06-29] MEDS: DEXTROSE 5%-0.2% NACL 1,000 ML IV SCH ×3 (12:34→22:18)
[2019-06-29 16:45] LABS: Glucose,Whole Blood 243 mg/dL (75-99)
--- NOTE | 2019-06-29 18:05 | PN ---
PROGRESS NOTE DATE OF SERVICE: 06/29/2019. CHIEF COMPLAINT: Dehydration with nausea and vomiting and possible hematemesis. HISTORY OF PRESENT ILLNESS: This lady is doing much better. Hydration is much improved. She is more alert. She has been seen by Gastroenterology and they are planning an endoscopy. PHYSICAL EXAMINATION: Hydration is much better and she is much more alert. Chest is clear. The cardiac exam is normal. Abdomen is soft and nontender. IMPRESSION: 1. Dehydration. 2. Hypokalemia. 3. Hypomagnesemia. 4. Intractable nausea and vomiting with possible hematemesis. 5. Anemia. PLAN: Upper GI endoscopy tomorrow and continue rehydration. MMODL / IJN: [id number] /
[2019-06-29 20:32] LABS: Glucose,Whole Blood 99 mg/dL (75-99)
[2019-06-30 06:08] LABS: Glucose,Whole Blood 137 mg/dL (75-99)
[2019-06-30 08:39] LABS: Basophils % (A) 0 %; Eosinophils # (A) 0.2 k/uL (0-0.7); Eosinophils % (A) 4 %; HCT 28.4 % (34.0-46.0); HGB 9.2 gm/dL (11.4-16.0); Lymphocytes # (A) 2.6 k/uL (1.0-4.8); Lymphocytes % (A) 44 %; MCH 29.3 pg (25.0-35.0); MCHC 32.5 g/dL (31.0-37.0); MCV 90.1 fL (80.0-100.0); Mean Platelet Volume 8.4; Monocytes # (A) 0.2 k/uL (0-1.0); Monocytes % (A) 3 %; Neutrophils # (A) 2.9 k/uL (1.3-7.7); Neutrophils % (A) 48 %; Platelet Count 201 k/uL (150-450); RBC 3.15 m/uL (3.80-5.40); RDW 13.5 % (11.5-15.5); WBC 5.9 k/uL (3.8-10.6)
--- NOTE | 2019-06-30 09:27 | CDI ---
Documentation Clarification Form Date: 06/30/2019 9:19:45 AM From: Maddie Degroot RN, CCDS Admit Date: 06/25/2019 11:10:00 PM Patient Name: Wilda Marion Visit Number: [id number] ATTENTION: The Clinical Documentation Specialists (CDI) and [facility] Coding Staff appreciate your assistance in clarifying documentation. Please respond to the clarification below the line at the bottom and electronically sign. The CDI & [facility] Coding staff will review the response and follow-up if needed. Please note: Queries are made part of the Legal Health Record. If you have any questions, please contact the author of this message via ITS. Dr. Kirk Feliz History/Risk Factors: Hypothyroidism, HTN, acute bronchitis Clinical Indicators: 06/29 Attending Progress Note: "Dehydration. Hypokalemia. Hypomagnesemia. Intractable nausea and vomiting with possible hematemesis. Anemia." Total Protein 8.4, Albumin 4.6 Current BMI: 19.5 on admission Treatment: Dietary Consult: not ordered Lab monitoring: AM daily In your professional opinion, can you please clarify if these findings signify one of the following conditions? Mild Protein-Calorie Malnutrition Moderate Protein-Calorie Malnutrition Severe Protein-Calorie Malnutrition Other condition, please specify Unable to determine (Last Revision: January 2019) MTDD
--- NOTE | 2019-06-30 09:35 | CDI ---
Documentation Clarification Form Date: 06/30/2019 9:28:39 AM From: Maddie Degroot RN, CCDS Admit Date: 06/25/2019 11:10:00 PM Patient Name: Wilda Marion Visit Number: [id number] ATTENTION: The Clinical Documentation Specialists (CDI) and [facility] Coding Staff appreciate your assistance in clarifying documentation. Please respond to the clarification below the line at the bottom and electronically sign. The CDI & [facility] Coding staff will review the response and follow-up if needed. Please note: Queries are made part of the Legal Health Record. If you have any questions, please contact the author of this message via ITS. Dr. Kirk Feliz A diagnosis of anemia lacks specificity to accurately reflect your patients severity of condition and clarification is needed. History/Risk Factors: Asthma, Hyperlipidemia, HTN Clinical indicators: 06/29 Attending: "Dehydration, intractable nausea and vomiting with possible hematemesis, anemia." Hemoglobin: 15.1/13.8/10.7/8.6/8.7/9.2 Hematocrit: 47.1/42.6/34.5/26.6/26.3/28.4 Treatment: monitoring labs 1 L IVF Bolus In order to capture the severity of condition, please clarify the type of anemia and etiology if known: Acute blood loss anemia Acute on chronic blood loss anemia Chronic blood loss anemia Iron deficiency anemia Nutritional anemia Anemia of chronic disease Unable to determine Other, please specify (Last Revision: April 2017) MTDD
[2019-06-30] MEDS: DEXTROSE 5%-0.2% NACL 1,000 ML IV SCH ×3 (09:37→18:58)
[2019-06-30] MEDS: INSULIN ASPART (NovoLOG) 100 UNIT/ML VIAL SQ SCH ×4 (09:37→21:03)
[2019-06-30 11:03] LABS: African American GFR (CKD) >90 (>60 ml/min/1.73 sqM); Anion Gap 4 mmol/L; Blood Urea Nitrogen 3 mg/dL (7-17); Calcium 7.8 mg/dL (8.4-10.2); Carbon Dioxide 33 mmol/L (22-30); Chloride 101 mmol/L (98-107); Glucose 114 mg/dL (74-99); Non-African American GFR(CKD) >90 (>60 ml/min/1.73 sqM); Potassium 2.8 mmol/L (3.5-5.1); Sodium 138 mmol/L (137-145)
[2019-06-30] MEDS: POTASSIUM CHLORIDE 10 MEQ in WATER FOR INJECTION 1 100ML.BAG IVPB SCH ×6 (11:36→18:58)
[2019-06-30] MEDS: PANTOPRAZOLE 40 MG/10 ML VIAL IVP SCH (11:36)
[2019-06-30 12:04] LABS: Glucose,Whole Blood 91 mg/dL (75-99)
[2019-06-30] MEDS ORDERED: LIDOCAINE 1% INJ 10MG/ML (20 ML MDV) ONE (13:53)
[2019-06-30] MEDS ORDERED: PROPOFOL 10 MG/ML 20 ML VIAL IV ONE (13:53)
[2019-06-30] MEDS ORDERED: IV FLUID CONTINUATION 1,000 ML IV ONE (13:55)
--- NOTE | 2019-06-30 14:10 | P.PCN ---
Date of Procedure: 06/30/19 Procedure(s) Performed: BRIEF HISTORY: Patient is a 68-year-old, pleasant, -Angolan female admitted hospital with exacerbation of COPD. She is been complaining of severe epigastric pain, intermittent nausea vomiting and a questionable episode of coffee-ground emesis at home. She is hence scheduled for an upper endoscopy to evaluate further. PROCEDURE PERFORMED: Esophagogastroduodenoscopywith biopsy. PREOPERATIVE DIAGNOSIS: epigastric pain/nausea vomiting and 1 episode of coffee- ground emesis. IV sedation per anesthesia. PROCEDURE: After informed consent was obtained, the patient was brought into the endoscopy unit. IV sedation was administered by Anesthesia under continuous monitoring. Initially the Olympus GIF-140 video endoscope was inserted into the mouth. Esophagus intubated without any difficulty. It was gradually advanced into the stomach and duodenum and carefully examined. The bulb and the second part of the duodenum appeared normal. The scope at this time was withdrawn to the stomach, adequately insufflated with air, and upon careful examination, mucosa of the antrumhad a 1 cm clean-based antral ulcer with a raised margins and biopsies were done from this area. No active bleeding noted. The, body, cardia and the fundus appeared normal. The scope was then withdrawn into the esophagus. The GE junction was located at 39 cm from the incisors.small sliding Hiatal hernia noted.there were linear erosions or ulcerations noted in the mid and distal esophagus consistent with LA grade D reflux esophagitis. Rest of esophagus appeared normal and the patient tolerated the procedure well. IMPRESSION: 1.1 cm clean-based antral ulcer with no active bleeding. 2.severe her erosions or ulcerations in the mid and distal esophagus consistent with LA grade D reflux esophagitis. RECOMMENDATIONS: The findings of this examination were discussed with the patient.family. she was advised to follow with the biopsy results. She will be continued on Protonix 40 mg twice daily. Diet will be advanced over liquid diet.. 68
[2019-06-30] MEDS ORDERED: Magnesium Replacement Protocol 1 EACH MISC MISCELLANE PRN (16:57)
[2019-06-30] MEDS: MAGNESIUM SULFATE-D5W PMX 1 GM in DEXTROSE/WATER 1 100ML.BAG IVPB SCH ×3 (17:20→21:19)
[2019-06-30 17:26] LABS: Glucose,Whole Blood 84 mg/dL (75-99)
[2019-06-30 20:54] LABS: Glucose,Whole Blood 113 mg/dL (75-99)
--- NOTE | 2019-06-30 21:02 | PN ---
PROGRESS NOTE CHIEF COMPLAINT: Dehydration. HISTORY OF PRESENT ILLNESS: This lady is starting to rehydrate. However, her magnesium and potassium continue to be low. She is going for endoscopy today. She is not vomiting any longer. PHYSICAL EXAMINATION: Her vital signs are normal. Her hydration has improved. She is more awake and alert. Chest is clear. Cardiac exam is normal. Abdomen is flat and soft. IMPRESSION: 1. Profound dehydration. 2. Persistent hypomagnesemia. 3. Persistent hypokalemia. 4. Abdominal pain and hematemesis. PLAN: 1. Continue to try to correct magnesium and potassium. 2. Upper GI endoscopy today. MMODL / IJN: [id number] /
[2019-06-30] MEDS: ONDANSETRON 4 MG/2 ML VIAL IVP PRN (21:18)
[2019-07-01] MEDS: DEXTROSE 5%-0.2% NACL 1,000 ML IV SCH ×4 (01:25→20:54)
[2019-07-01 06:46] LABS: African American GFR (CKD) >90 (>60 ml/min/1.73 sqM); Anion Gap 3 mmol/L; Blood Urea Nitrogen 2 mg/dL (7-17); Carbon Dioxide 28 mmol/L (22-30); Chloride 102 mmol/L (98-107); Glucose 94 mg/dL (74-99); Magnesium 2.3 mg/dL (1.6-2.3); Non-African American GFR(CKD) >90 (>60 ml/min/1.73 sqM); Potassium 3.8 mmol/L (3.5-5.1); Sodium 133 mmol/L (137-145)
[2019-07-01] MEDS: PANTOPRAZOLE 40 MG/10 ML VIAL IVP SCH (09:01)
--- NOTE | 2019-07-01 17:55 | PN ---
PROGRESS NOTE CHIEF COMPLAINT: Dehydration, hypomagnesemia, hypokalemia. HISTORY OF PRESENT ILLNESS: This lady continues to slowly improve. Rehydration continues. PHYSICAL EXAMINATION: Chest is fairly clear, but breath sounds are shallow. Cardiac exam is normal. Abdomen is soft, nontender. IMPRESSION: 1. Dehydration. 2. Electrolyte imbalance. 3. Hypokalemia. 4. Hypomagnesemia. 5. Peptic ulcer disease with upper gastrointestinal bleed. PLAN: Continue with IV fluids and proton pump inhibitor. Work toward eventual discharge, which will hopefully be this week. MMODL / IJN: [id number] /
--- NOTE | 2019-07-01 18:16 | PN ---
PROGRESS NOTE DATE OF DICTATION: 07/01/2019 This patient is a 68-year-old pleasant white female admitted to the hospital with exacerbation of COPD, while in the hospital complaining of nausea, vomiting and coffee- ground emesis. She underwent an upper endoscopy yesterday that showed severe reflux esophagitis and a 1 cm antral ulcer with no active bleeding. Patient presently on Protonix 40 mg twice daily, started on a clear liquid diet today, doing well. She wants to advance the diet. She still has some epigastric discomfort. PHYSICAL EXAMINATION: Appears comfortable. No apparent distress. VITAL SIGNS: Stable. Blood pressure is 91/66, pulse rate 106, afebrile. HEENT examination unremarkable. Conjunctivae pink. Sclerae anicteric. Oral cavity no lesions. NECK: No JVD or lymph node enlargement. CHEST: Clear to auscultation. HEART: Regular rate and rhythm. ABDOMEN: Soft. Bowel sounds are positive. No organomegaly. EXTREMITIES: No pedal edema. SKIN: No rashes. NEUROLOGIC: Alert and oriented x3. No focal deficits. LABS: Labs done from today show WBC 5.9, hemoglobin 9.2, platelets normal. Basic metabolic panel is within normal limits. IMPRESSION: 1. Gastric antral ulcer, status post esophagogastroduodenoscopy yesterday that revealed a 1 cm nonbleeding antral ulcer. Presently on Protonix 40 mg twice daily as well as antiemetics and doing better on a clear liquid diet, tolerating well. 2. Exacerbation of chronic obstructive pulmonary disease. RECOMMENDATIONS: 1. Advance diet as tolerated. 2. Continue Protonix 40 mg daily. 3. Avoid NSAIDs. 4. Repeat labs in the morning. Will follow with you closely during the hospital stay. Thank you for this consultation. MMODL / IJN: [id number] /
[2019-07-02] MEDS: DEXTROSE 5%-0.2% NACL 1,000 ML IV SCH ×4 (03:52→20:01)
[2019-07-02] MEDS: PANTOPRAZOLE 40 MG TABLET PO SCH ×2 (06:46→08:46)
[2019-07-02 07:14] LABS: African American GFR (CKD) >90 (>60 ml/min/1.73 sqM); Anion Gap 4 mmol/L; Calcium 8.1 mg/dL (8.4-10.2); Carbon Dioxide 30 mmol/L (22-30); Chloride 102 mmol/L (98-107); Glucose 84 mg/dL (74-99); Non-African American GFR(CKD) >90 (>60 ml/min/1.73 sqM); Sodium 136 mmol/L (137-145)
[2019-07-02 07:18] LABS: Blood Urea Nitrogen 3 mg/dL (7-17); Magnesium 1.9 mg/dL (1.6-2.3); Potassium 4.4 mmol/L (3.5-5.1)
[2019-07-02 11:41] LABS: Basophils # (A) 0.1 k/uL (0-0.2); Basophils % (A) 1 %; Eosinophils # (A) 0.2 k/uL (0-0.7); Eosinophils % (A) 3 %; HCT 29.1 % (34.0-46.0); HGB 9.4 gm/dL (11.4-16.0); Lymphocytes # (A) 1.9 k/uL (1.0-4.8); Lymphocytes % (A) 31 %; MCH 29.4 pg (25.0-35.0); MCHC 32.2 g/dL (31.0-37.0); MCV 91.2 fL (80.0-100.0); Mean Platelet Volume 8.7; Monocytes # (A) 0.3 k/uL (0-1.0); Monocytes % (A) 5 %; Neutrophils # (A) 3.7 k/uL (1.3-7.7); Neutrophils % (A) 59 %; Platelet Count 238 k/uL (150-450); RBC 3.19 m/uL (3.80-5.40); RDW 13.9 % (11.5-15.5); WBC 6.2 k/uL (3.8-10.6)
--- NOTE | 2019-07-02 19:55 | PN ---
PROGRESS NOTE CHIEF COMPLAINT: Dehydration, electrolyte imbalance and hypomagnesemia. HISTORY OF PRESENT ILLNESS: This lady is improving significantly now. Laboratory studies are coming into normal range. Hydration is greatly improved. REVIEW OF SYMPTOMS: She does not have any complaints at this time, but she is still very weak. PHYSICAL EXAMINATION: Chest is clear. Cardiac exam is normal. The abdomen is soft and nontender. She is a little bit tender over the epigastrium. IMPRESSION: 1. Dehydration. 2. Hypokalemia. 3. Hypomagnesemia. 4. Peptic ulcer disease. PLAN: Continue with current program with IV fluids, and if she continues to remain stable from the chemistry point of view, she can probably be discharged in the next day or two. MMODL / IJN: [id number] /
[2019-07-02 21:21] LABS: Glucose,Whole Blood 116 mg/dL (75-99)
[2019-07-03] MEDS: DEXTROSE 5%-0.2% NACL 1,000 ML IV SCH (06:24)
[2019-07-03 07:14] LABS: African American GFR (CKD) >90 (>60 ml/min/1.73 sqM); Anion Gap 4 mmol/L; Blood Urea Nitrogen 6 mg/dL (7-17); Calcium 7.9 mg/dL (8.4-10.2); Carbon Dioxide 31 mmol/L (22-30); Chloride 98 mmol/L (98-107); Glucose 104 mg/dL (74-99); Magnesium 1.5 mg/dL (1.6-2.3); Non-African American GFR(CKD) >90 (>60 ml/min/1.73 sqM); Potassium 3.7 mmol/L (3.5-5.1); Sodium 133 mmol/L (137-145)
[2019-07-03] MEDS: PANTOPRAZOLE 40 MG TABLET PO SCH (08:32)
[2019-07-03] MEDS: MAGNESIUM OXIDE 400 MG TAB PO SCH ×3 (13:10→21:25)
--- NOTE | 2019-07-03 15:58 | PN ---
PROGRESS NOTE CHIEF COMPLAINT: Dehydration, hypokalemia, hypomagnesemia and peptic ulcer disease. HISTORY OF PRESENT ILLNESS: This lady is feeling well and doing well. Her magnesium is down again, however. She is close to being able to go home, and it is not clear if she will be going to a rehab facility or not. PHYSICAL EXAMINATION: Chest is clear. The cardiac exam is normal. The abdomen is soft and nontender. IMPRESSION: 1. Dehydration. 2. Hypokalemia. 3. Hypomagnesemia. 4. Peptic ulcer disease. PLAN: 1. Increase efforts to control magnesium level. 2. Await any further recommendations regarding her discharge plan. She wants to go home. It is not clear if she will be able to handle this or not. MMMARIPOSA / ELIEN: [id number] /
[2019-07-04] MEDS: ONDANSETRON 4 MG/2 ML VIAL IVP PRN (03:31)
[2019-07-04] MEDS: MAGNESIUM OXIDE 400 MG TAB PO SCH ×3 (08:51→20:48)
[2019-07-04 11:16] LABS: Basophils # (A) 0.1 k/uL (0-0.2); Basophils % (A) 1 %; Eosinophils # (A) 0.3 k/uL (0-0.7); Eosinophils % (A) 2 %; HCT 26.3 % (34.0-46.0); HGB 8.6 gm/dL (11.4-16.0); Lymphocytes # (A) 2.5 k/uL (1.0-4.8); Lymphocytes % (A) 22 %; MCH 29.6 pg (25.0-35.0); MCHC 32.5 g/dL (31.0-37.0); MCV 90.9 fL (80.0-100.0); Mean Platelet Volume 7.8; Monocytes # (A) 0.5 k/uL (0-1.0); Monocytes % (A) 4 %; Neutrophils # (A) 7.7 k/uL (1.3-7.7); Neutrophils % (A) 69 %; Platelet Count 397 k/uL (150-450); RDW 13.9 % (11.5-15.5); WBC 11.1 k/uL (3.8-10.6)
[2019-07-04 11:24] LABS: ALT 14 U/L (4-34); AST 29 U/L (14-36); African American GFR (CKD) >90 (>60 ml/min/1.73 sqM); Albumin 2.2 g/dL (3.5-5.0); Alkaline Phosphatase 69 U/L (38-126); Anion Gap 1 mmol/L; Blood Urea Nitrogen 13 mg/dL (7-17); Calcium 8.6 mg/dL (8.4-10.2); Carbon Dioxide 35 mmol/L (22-30); Chloride 95 mmol/L (98-107); Glucose 91 mg/dL (74-99); Non-African American GFR(CKD) 88 (>60 ml/min/1.73 sqM); Potassium 4.3 mmol/L (3.5-5.1); Sodium 131 mmol/L (137-145); Total Bilirubin 0.4 mg/dL (0.2-1.3); Total Protein 4.4 g/dL (6.3-8.2)
[2019-07-04] MEDS: CALCIUM CARB-VIT D 500MG-200UN 1 EACH TAB PO SCH ×2 (12:23→20:43)
--- NOTE | 2019-07-04 14:42 | XR ---
EXAMINATION TYPE: XR abdomen complete w decub DATE OF EXAM: 07/04/2019 COMPARISON: None INDICATION: Abdomen pain, distention TECHNIQUE: Abdomen is examined in supine and upright views. Left lateral decubitus views obtained. FINDINGS: Multiple air-fluid levels are present within small bowel loops. Some air-fluid levels may be within t he ascending colon region. No free air is evident. Psoas margins are normal. No organomegaly is present. IMPRESSION: 1. Nonspecific abdomen. Partial small bowel obstruction should be considered. Follow-up is recommende d. A Red level critical message alert has been initiated for Kirk Feliz MD via the [employer] Critical Results System on 07/04/2019 2:39 PM. This message alert has been sent to Kirk Feliz MD via the preferences provided by the clinician for the receipt of Radiology Critical Fin dings. Message ID [id number].
--- NOTE | 2019-07-04 14:46 | XR ---
EXAMINATION TYPE: XR chest 2V DATE OF EXAM: 07/04/2019 COMPARISON: 06/25/2019 INDICATION: Abdomen pain TECHNIQUE: Frontal and lateral views of the chest are obtained. FINDINGS: The heart size is normal. The pulmonary vasculature is normal. Small left pleural effusion is present.. IMPRESSION: 1. Small left pleural effusion
[2019-07-04] MEDS: DEXTROSE 5%-0.2% NACL 1,000 ML IV SCH ×3 (20:46→20:48)
[2019-07-05] MEDS: PANTOPRAZOLE 40 MG TABLET PO SCH (06:45)
[2019-07-05] MEDS: CALCIUM CARB-VIT D 500MG-200UN 1 EACH TAB PO SCH ×2 (06:45→18:13)
[2019-07-05] MEDS: DEXTROSE 5%-0.2% NACL 1,000 ML IV SCH ×4 (06:47→23:04)
[2019-07-05] MEDS: MAGNESIUM OXIDE 400 MG TAB PO SCH ×3 (08:46→20:45)
--- NOTE | 2019-07-05 11:24 | P.GSCN ---
History of Present Illness Consult date: 07/05/19 Reason for Consult: partial small bowel obstruction History of present illness: this a 68-year-old female who was admitted to the hospital with complaints of abdominal pain nausea. Patient's workup in the emergency room was found have evidence of a partial small bowel structure. Patient states that she's had flatus and a bowel movement overnight. Past Medical History Past Medical History: Asthma, Eye Disorder, Hyperlipidemia, Hypertension, Pneumonia, Thyroid Disorder Additional Past Medical History / Comment(s): Bronchitis, hypothyroid, L eye glaucoma. History of Any Multi-Drug Resistant Organisms: None Reported Past Surgical History: Tubal Ligation Past Anesthesia/Blood Transfusion Reactions: No Reported Reaction Smoking Status: Light tobacco smoker - Past Family History Father History Unknown: Yes Additional Family Medical History / Comment(s): Father when pt was a baby Mother Family Medical History: No Reported History Additional Family Medical History / Comment(s): Mother was healthy. She is . Medications and Allergies Home Medications Medication Instructions Recorded Confirmed Type Levothyroxine Sodium [Synthroid] 175 mcg PO DAILY 06/25/19 06/25/19 History Simvastatin [Zocor] 20 mg PO DAILY 06/25/19 06/25/19 History amLODIPine [Norvasc] 10 mg PO DAILY 06/25/19 06/25/19 History Allergies Allergy/AdvReac Type Severity Reaction Status Date / Time No Known Allergies Allergy Verified 06/25/19 23:00 Surgical - Exam Vital Signs Temp Pulse Resp BP Pulse Ox 97.8 F 135 H 16 144/98 100 06/25/19 19:59 06/25/19 19:59 06/25/19 19:59 06/25/19 19:59 06/25/19 19:59 - General well developed, well nourished, no distress - Eyes PERRL - ENT normal pinna - Neck no masses - Respiratory normal expansion - Cardiovascular Rhythm: regular - Abdomen Abdomen: soft, non tender Results - Labs 07/04/19 10:52 07/04/19 10:52 Abnormal Lab Results - Last 24 Hours (Table) 07/04/19 Range/Units 10:52 Sodium 131 L (137-145) mmol/L Chloride 95 L (98-107) mmol/L Carbon Dioxide 35 H (22-30) mmol/L Total Protein 4.4 L (6.3-8.2) g/dL Albumin 2.2 L (3.5-5.0) g/dL Diabetes panel 07/04/19 Range/Units 10:52 Sodium 131 L (137-145) mmol/L Potassium 4.3 (3.5-5.1) mmol/L Chloride 95 L (98-107) mmol/L Carbon Dioxide 35 H (22-30) mmol/L BUN 13 (7-17) mg/dL Creatinine 0.72 (0.52-1.04) mg/dL Glucose 91 (74-99) mg/dL Calcium 8.6 (8.4-10.2) mg/dL AST 29 (14-36) U/L ALT 14 (4-34) U/L Alkaline Phosphatase 69 (38-126) U/L Total Protein 4.4 L (6.3-8.2) g/dL Albumin 2.2 L (3.5-5.0) g/dL Calcium panel 07/04/19 Range/Units 10:52 Calcium 8.6 (8.4-10.2) mg/dL Albumin 2.2 L (3.5-5.0) g/dL Pituitary panel 07/04/19 Range/Units 10:52 Sodium 131 L (137-145) mmol/L Potassium 4.3 (3.5-5.1) mmol/L Chloride 95 L (98-107) mmol/L Carbon Dioxide 35 H (22-30) mmol/L BUN 13 (7-17) mg/dL Creatinine 0.72 (0.52-1.04) mg/dL Glucose 91 (74-99) mg/dL Calcium 8.6 (8.4-10.2) mg/dL Adrenal panel 07/04/19 Range/Units 10:52 Sodium 131 L (137-145) mmol/L Potassium 4.3 (3.5-5.1) mmol/L Chloride 95 L (98-107) mmol/L Carbon Dioxide 35 H (22-30) mmol/L BUN 13 (7-17) mg/dL Creatinine 0.72 (0.52-1.04) mg/dL Glucose 91 (74-99) mg/dL Calcium 8.6 (8.4-10.2) mg/dL Total Bilirubin 0.4 (0.2-1.3) mg/dL AST 29 (14-36) U/L ALT 14 (4-34) U/L Alkaline Phosphatase 69 (38-126) U/L Total Protein 4.4 L (6.3-8.2) g/dL Albumin 2.2 L (3.5-5.0) g/dL Assessment and Plan Assessment: resolving small bowel structure. Patient will start on full liquid diet
[2019-07-05] MEDS: ONDANSETRON 4 MG/2 ML VIAL IVP PRN (14:14)
[2019-07-05] MEDS: METOCLOPRAMIDE 5 MG/ML 2 ML VIAL IVP SCH ×2 (18:13→23:01)
--- NOTE | 2019-07-05 20:20 | PN ---
PROGRESS NOTE CHIEF COMPLAINT: Dehydration, abdominal pain and possible bowel obstruction versus ileus. HISTORY OF PRESENT ILLNESS: This lady seems more comfortable and she has been seen by Surgery. Magnesium has been corrected. PHYSICAL EXAM: Abdomen is still slightly distended, but less tender. Bowel sounds are not heard. Breath sounds are diminished on both sides. Cardiac exam is unchanged. IMPRESSION: 1. Dehydration. 2. Electrolyte imbalance. 3. Small bowel obstruction or ileus. PLAN: Continue to monitor progress and continue to follow magnesium and electrolyte levels. MMODL / IJN: [id number] /
[2019-07-06] MEDS: METOCLOPRAMIDE 5 MG/ML 2 ML VIAL IVP SCH ×4 (06:30→22:23)
[2019-07-06] MEDS: CALCIUM CARB-VIT D 500MG-200UN 1 EACH TAB PO SCH ×2 (06:30→17:42)
[2019-07-06] MEDS: PANTOPRAZOLE 40 MG TABLET PO SCH (06:30)
[2019-07-06] MEDS: DEXTROSE 5%-0.2% NACL 1,000 ML IV SCH ×3 (06:34→22:23)
[2019-07-06] MEDS: MAGNESIUM OXIDE 400 MG TAB PO SCH ×3 (11:06→22:23)
--- NOTE | 2019-07-06 14:18 | P.PN ---
Progress Note - Text Progress Note Date: 07/06/19 the patient states he feels better. She states she had a bowel movement today. On exam her vital signs are stable. Her abdomen soft. Resolving ileus. Patient will start on clear liquid diet
--- NOTE | 2019-07-06 16:45 | PN ---
PROGRESS NOTE DATE OF SERVICE: 07/06/2019. CHIEF COMPLAINT: Dehydration, peptic ulcer disease, hypokalemia and hypomagnesemia. HISTORY OF PRESENT ILLNESS: This lady seems to be doing fairly well. Bowel activity seems to have improved and she is not having significant abdominal pain now. She probably had an ileus related to her electrolyte and magnesium imbalance. PHYSICAL EXAMINATION: Breath sounds are heard well in both sides. Cardiac exam is normal. Abdomen is soft and she is not particularly tender. There are bowel sounds. IMPRESSION: 1. Ileus. 2. Hypokalemia. 3. Hypomagnesemia. 4. Dehydration. PLAN: Continue to rehydrate and she can probably go home in a day or 2 unless she agrees to go to an extended-care facility. MMODL / IJN: [id number] /
[2019-07-07] MEDS: METOCLOPRAMIDE 5 MG/ML 2 ML VIAL IVP SCH ×4 (06:55→23:44)
[2019-07-07] MEDS: CALCIUM CARB-VIT D 500MG-200UN 1 EACH TAB PO SCH ×2 (06:56→17:52)
[2019-07-07] MEDS: PANTOPRAZOLE 40 MG TABLET PO SCH (06:56)
[2019-07-07] MEDS: MAGNESIUM OXIDE 400 MG TAB PO SCH ×3 (08:53→21:55)
[2019-07-07] MEDS: DEXTROSE 5%-0.2% NACL 1,000 ML IV SCH ×4 (08:55→23:46)
[2019-07-07 12:22] LABS: Anisocytosis Slight; Basophils % (A) 0 %; Eosinophils # (A) 0.1 k/uL (0-0.7); Eosinophils % (A) 1 %; HCT 27.9 % (34.0-46.0); Hypochromasia Slight; Lymphocytes # (A) 1.6 k/uL (1.0-4.8); Lymphocytes % (A) 19 %; MCHC 32.2 g/dL (31.0-37.0); MCV 93.1 fL (80.0-100.0); Mean Platelet Volume 7.6; Monocytes # (A) 0.4 k/uL (0-1.0); Monocytes % (A) 5 %; Neutrophils # (A) 6.2 k/uL (1.3-7.7); Neutrophils % (A) 74 %; Platelet Count 641 k/uL (150-450); RDW 16.1 % (11.5-15.5); WBC 8.4 k/uL (3.8-10.6)
[2019-07-07 12:32] LABS: ALT 14 U/L (4-34); AST 35 U/L (14-36); African American GFR (CKD) >90 (>60 ml/min/1.73 sqM); Albumin 2.5 g/dL (3.5-5.0); Alkaline Phosphatase 71 U/L (38-126); Anion Gap 8 mmol/L; Blood Urea Nitrogen 5 mg/dL (7-17); Calcium 8.3 mg/dL (8.4-10.2); Carbon Dioxide 26 mmol/L (22-30); Chloride 101 mmol/L (98-107); Glucose 88 mg/dL (74-99); Magnesium 2.1 mg/dL (1.6-2.3); Non-African American GFR(CKD) 85 (>60 ml/min/1.73 sqM); Potassium 3.8 mmol/L (3.5-5.1); Sodium 135 mmol/L (137-145); Total Bilirubin 0.5 mg/dL (0.2-1.3); Total Protein 5.2 g/dL (6.3-8.2)
--- NOTE | 2019-07-07 16:23 | XR ---
EXAMINATION TYPE: XR chest 2V DATE OF EXAM: 07/07/2019 COMPARISON: 07/04/2019 HISTORY: 68-year-old female shortness of breath TECHNIQUE: PA and lateral views FINDINGS: Heart normal size. There is a blunted left costophrenic angle and possible trace effusion even on the right on the lateral view. IMPRESSION: Residual small left and trace right pleural effusions, decreased in the interval.
[2019-07-08] MEDS: DEXTROSE 5%-0.2% NACL 1,000 ML IV SCH ×3 (06:09→20:15)
[2019-07-08] MEDS: PANTOPRAZOLE 40 MG TABLET PO SCH (06:25)
[2019-07-08] MEDS: METOCLOPRAMIDE 5 MG/ML 2 ML VIAL IVP SCH ×4 (06:25→23:22)
[2019-07-08] MEDS: CALCIUM CARB-VIT D 500MG-200UN 1 EACH TAB PO SCH ×2 (06:25→16:54)
--- NOTE | 2019-07-08 07:55 | P.PN ---
Progress Note - Text Progress Note Date: 07/07/19 the patient states she feels better. She is tolerating her liquids. She's had flatus and a small bowel movement. On exam her vital signs are stable. Her abdomen soft. Resolving ileus. Patient will have her diet increased.
[2019-07-08] MEDS: MAGNESIUM OXIDE 400 MG TAB PO SCH ×3 (08:05→20:14)
--- NOTE | 2019-07-08 13:40 | P.PN ---
Subjective Progress Note Date: 07/08/19 CHIEF COMPLAINT: Ileus HISTORY OF PRESENT ILLNESS: Patient seen and examined this morning at the bedside with Dr. Johns. Patient is tolerating liquid diet. She denies episodes of vomiting. She is passing flatus and reports having a bowel movement. PHYSICAL EXAM: VITAL SIGNS: Reviewed. GENERAL: Well-developed in no acute distress. HEENT: No sclera icterus. Extraocular movements grossly intact. Moist buccal mucosa. Head is atraumatic, normocephalic. ABDOMEN: Soft. Nondistended. Nontender. NEUROLOGIC: Alert and oriented. Cranial nerves II through XII grossly intact. ASSESSMENT: 1. Ileus, resolving PLAN: Advance diet. If patient tolerates, she may discharged home from a surgical standpoint. Will defer to medicine. Nurse practitioner note has been reviewed by physician. Signing provider agrees with the documented findings, assessment, and plan of care. Objective - Vital Signs Vital signs: Vital Signs Temp 97.7 F 07/08/19 08:00 Pulse 107 H 07/08/19 11:19 Resp 16 07/08/19 11:19 BP 114/79 07/08/19 11:19 Pulse Ox 100 07/08/19 11:19 Intake & Output 07/07/19 07/08/19 07/08/19 18:59 06:59 18:59 Intake Total 712 240 240 Output Total 120 Balance 712 120 240 Weight 53.6 kg Intake: Intake, IV Titration 150 Amount Dextrose 5%-0.2% NaCl 1, 150 000 ml @ 150 mls/hr IV . Q6H40M [facility] Rx#:[id number] Oral 562 240 240 Output: Urine 120 Other: # Voids 2 1 # Bowel Movements 1 - Labs CBC & Chem 7: 07/07/19 11:40 07/07/19 11:40
[2019-07-08 13:59] VITALS: BMI 23.1
[2019-07-09] MEDS: DEXTROSE 5%-0.2% NACL 1,000 ML IV SCH ×4 (03:13→20:21)
[2019-07-09] MEDS: PANTOPRAZOLE 40 MG TABLET PO SCH (06:35)
[2019-07-09] MEDS: METOCLOPRAMIDE 5 MG/ML 2 ML VIAL IVP SCH ×4 (06:35→23:27)
[2019-07-09] MEDS: CALCIUM CARB-VIT D 500MG-200UN 1 EACH TAB PO SCH ×2 (06:35→17:20)
[2019-07-09] MEDS: MAGNESIUM OXIDE 400 MG TAB PO SCH ×3 (08:26→20:21)
--- NOTE | 2019-07-09 09:59 | P.PN ---
Progress Note - Text Progress Note Date: 07/09/19 The patient is tolerating a regular diet. She's had flatus and a bowel movement. She denies any significant abdominal pain. On exam her vital signs are stable. Her abdomen soft. Resolved ileus. Patient will be discharged home per medicine once her pulmonary status has improved
[2019-07-09 11:32] LABS: Glucose,Whole Blood 152 mg/dL (75-99)
--- NOTE | 2019-07-09 22:02 | PN ---
PROGRESS NOTE DATE OF SERVICE: 07/07/2019. CHIEF COMPLAINT: Dehydration, prerenal azotemia, hypokalemia and hypomagnesemia. HISTORY OF PRESENT ILLNESS: This lady was doing fairly well and it was hoped that we would either be able to send her home or to rehab soon, but now she is complaining of lower abdominal pain all the way across the abdomen. She has not had any diarrhea, melena, fever, chills, urinary complaints, vomiting, etc. PHYSICAL EXAMINATION: She continues to be somewhat dehydrated. Head, ears, eyes, nose, mouth, and throat are unremarkable and unchanged. Chest is clear. It reveals scattered rales. Cardiac exam is normal and the abdomen is not particularly distended, it is soft and she is tender in the lower aspects. There are no masses or visceromegaly. Bowel sounds present and extremities are normal. IMPRESSION: 1. Lower abdominal pain, etiology unknown. 2. Profound dehydration. 3. Hypokalemia. 4. Hypomagnesemia. PLAN: Cancel discharge and continue to monitor her abdominal complaint. MMODL / IJN: [id number] /
--- NOTE | 2019-07-09 22:08 | PN ---
PROGRESS NOTE DATE OF SERVICE: 07/09/2019. CHIEF COMPLAINT: Dehydration, hypokalemia, hypomagnesemia, lower abdominal pain. HISTORY OF PRESENT ILLNESS: This lady is doing a little bit better. She is not having any further abdominal pain. She is starting to eat a little bit better and getting up in the chair. She is probably to the point where she can go to a rehab facility. PHYSICAL EXAMINATION: Chest is clear. Cardiac exam is normal. The abdomen is flat, soft. Extremities: Normal. Skin is still very dry. IMPRESSION: 1. Dehydration. 2. Hypokalemia. 3. Hypomagnesemia. 4. Malnutrition and general debility. PLAN: Possibly to be rehab tomorrow once things can be arranged. MMODL / IJN: [id number] /
--- NOTE | 2019-07-09 22:08 | PN ---
PROGRESS NOTE DATE OF SERVICE: 07/08/2019. CHIEF COMPLAINT: Dehydration, nausea, vomiting, abdominal pain, hypokalemia and hypomagnesemia with ileus. HISTORY OF PRESENT ILLNESS: This lady seems to be doing a little bit better. The abdomen is less distended and she is eating some and passing flatus. She is afebrile. PHYSICAL EXAMINATION: Chest is clear. Breath sounds are diminished. Cardiac exam is normal and the abdomen is less distended, soft, nontender. IMPRESSION: 1. Dehydration. 2. Hypokalemia. 3. Hypomagnesemia. 4. Abdominal pain. 5. Ileus. PLAN: If she continues to improve, we will probably be able to send her home or to rehab soon. MMODL / IJN: [id number] /
[2019-07-09 22:40] VITALS: TEMP 97.9
[2019-07-10 05:35] VITALS: RESP 17
[2019-07-10] MEDS: METOCLOPRAMIDE 5 MG/ML 2 ML VIAL IVP SCH ×2 (05:43→17:17)
[2019-07-10] MEDS: DEXTROSE 5%-0.2% NACL 1,000 ML IV SCH ×2 (05:43→17:17)
[2019-07-10] MEDS: CALCIUM CARB-VIT D 500MG-200UN 1 EACH TAB PO SCH (09:55)
[2019-07-10] MEDS: PANTOPRAZOLE 40 MG TABLET PO SCH (09:55)
[2019-07-10] MEDS: MAGNESIUM OXIDE 400 MG TAB PO SCH ×2 (09:55→17:17)
[2019-07-10 11:41] VITALS: BP 104/60; PULSE 101
--- NOTE | 2019-07-10 15:17 | DS ---
DISCHARGE SUMMARY CHIEF COMPLAINT: Dehydration, hypokalemia and hypomagnesemia. HISTORY OF PRESENT ILLNESS AND PHYSICAL EXAM: Details of this lady's history and physical can be found in the initial workup. LABORATORY STUDIES: While she was in a hospital, she had laboratory studies, details of which can be found in the laboratory section of her chart. COURSE IN HOSPITAL: After admission, she was placed on bedrest, started on intravenous fluids and it took many days to correct her dehydration, hypomagnesemia and hypokalemia. Eventually this was accomplished. During her hospitalization she developed epigastric pain, started to have nausea and vomiting. She was eventually seen by Surgery and then taken to the operating room by Gastroenterology and found to have a gastric ulcer. She was started on a proton pump inhibitor and her pain began to disappear. At one point, she had developed what was thought to be either an ileus or small-bowel obstruction, but her magnesium had dropped once again. This was corrected and her bowel activity started to return to normal and she slowly began to eat and move about. Because of her very debilitated condition and her weakness, it was felt that she should she go to into a rehab facility for a few weeks. Initially she was resisting, then she agreed. On she was to be transferred to [facility]. FINAL DIAGNOSES: 1. Dehydration. 2. Hypokalemia. 3. Hypomagnesemia. 4. Gastric ulcer. 5. Ileus. 6. Right exotropia. OPERATIONS: Endoscopy. CONSULTATIONS: General Surgery and Gastroenterology. She is improved. MMODL / IJN: [id number] /
--- NOTE | 2019-07-18 09:03 | MISC ---
MISCELLANOUS REPORT QUERY: Severe protein calorie malnutrition. Another one: Nutritional and anemia of chronic disease, both. MMODL / IJN: [id number] /
== END 2019-07-10 17:24 | DRG 640 ==
LOC: EC 19:56 → EEVIPCON 19:56 → 3SCARD 23:10 → 5NMEDONC 07-09 22:18
PROVIDERS: ADMIT Family Medicine; ATTEND Family Medicine
PROC: 0DB78ZX Excision of Stomach, Pylorus, Via Natural or Artificial Opening Endoscopic, Diagnostic (ICD-10-PCS; principal; 2019-06-30 09:05)
PROC: 0DB58ZX Excision of Esophagus, Via Natural or Artificial Opening Endoscopic, Diagnostic (ICD-10-PCS; principal; 2019-06-30 09:05)
DX: E86.0 Dehydration (principal); K25.4 Chronic or unspecified gastric ulcer with hemorrhage; E43 Unspecified severe protein-calorie malnutrition; J44.0 Chronic obstructive pulmonary disease with (acute) lower respiratory infection; K56.7 Ileus, unspecified; J44.1 Chronic obstructive pulmonary disease with (acute) exacerbation; E83.42 Hypomagnesemia; F17.200 Nicotine dependence, unspecified, uncomplicated; E87.6 Hypokalemia; E78.5 Hyperlipidemia, unspecified; E05.90 Thyrotoxicosis, unspecified without thyrotoxic crisis or storm; E03.9 Hypothyroidism, unspecified; H50.111 Monocular exotropia, right eye; I10 Essential (primary) hypertension; J20.9 Acute bronchitis, unspecified; R79.89 Other specified abnormal findings of blood chemistry; D64.9 Anemia, unspecified; K21.0 Gastro-esophageal reflux disease with esophagitis; R53.81 Other malaise; K44.9 Diaphragmatic hernia without obstruction or gangrene; N28.9 Disorder of kidney and ureter, unspecified; Z79.890 Hormone replacement therapy; Z79.899 Other long term (current) drug therapy; Z87.01 Personal history of pneumonia (recurrent); Z98.51 Tubal ligation status
CPT/HCPCS: 36415; 43239; 71046; 74021; 78580; 80048; 80053; 82550; 83690; 83735; 83880; 84132; 84439; 84443; 84484; 85025; 85610; 85730; 88305; 88312; 93005; 94640; 94760; 96365; 96366; 96367; 96374; 96376; 99285

== ENCOUNTER 2021-06-11 19:02 | Emergency (ER) | payer MEDICARE, OTHER ==
[2021-06-11 19:08] VITALS: TEMP 97.9
[2021-06-11] MEDS ORDERED: SODIUM CHLORIDE 0.9% 1,000 ML IV ONE (19:24)
[2021-06-11] MEDS ORDERED: DIPH,PERTUS(ACELL)TETVAC-LF 0.5 ML VIAL IM ONE (19:26)
[2021-06-11] MEDS ORDERED: LIDOCAINE 1%-EPI 1:100,000 20 ML VIAL SQ STA (19:26)
[2021-06-11 19:57] LABS: Basophils # (A) 0.1 k/uL (0-0.2); Basophils % (A) 2 %; Eosinophils # (A) 0.2 k/uL (0-0.7); Eosinophils % (A) 3 %; HCT 40.2 % (34.0-46.0); HGB 13.6 gm/dL (11.4-16.0); Lymphocytes # (A) 2.9 k/uL (1.0-4.8); Lymphocytes % (A) 44 %; MCH 31.6 pg (25.0-35.0); MCHC 33.8 g/dL (31.0-37.0); MCV 93.4 fL (80.0-100.0); Mean Platelet Volume 7.6; Monocytes # (A) 0.2 k/uL (0-1.0); Monocytes % (A) 4 %; Neutrophils % (A) 46 %; Platelet Count 259 k/uL (150-450); RBC 4.31 m/uL (3.80-5.40); RDW 15.5 % (11.5-15.5); WBC 6.6 k/uL (3.8-10.6)
[2021-06-11 20:05] LABS: Calcium 9.1 mg/dL (8.4-10.2)
[2021-06-11 20:07] LABS: INR 1.1 (<1.2); Partial Thromboplastin Time 23.2 sec (22.0-30.0)
--- NOTE | 2021-06-11 20:15 | CT ---
EXAMINATION TYPE: CT facial bones wo con DATE OF EXAM: 06/11/2021 COMPARISON: None HISTORY: fall, facial trauma CT DLP: 1205.5 mGycm Automated exposure control for dose reduction was used. Images obtained from the bottom of the mandible to the top of the frontal sinuses without contrast. The mandibular ring is intact. Temporomandibular joints are intact. Zygomatic arches appear normal. N gregory bone is intact. Maxilla is intact. There is fairly normal aeration of the paranasal sinuses. The orbital margins are intact. There is no evidence of orbital blowout fracture. There is minimal mucos al thickening in the left maxillary sinus. I see no bony destructive process. There is normal aeratio n of the mastoid sinuses. There is no evidence of retro-orbital mass. IMPRESSION: Negative scan of the facial bones. No fracture. Minimal left maxillary sinusitis.
--- NOTE | 2021-06-11 20:27 | CT ---
EXAMINATION TYPE: CT brain yaquelin wo con DATE OF EXAM: 06/11/2021 COMPARISON: None HISTORY: fall facial trauma CT DLP: 1205.5 mGycm Automated exposure control for dose reduction was used. Images of the brain and cervical spine obtained without contrast. Ventricles have normal size. There is no mass effect nor midline shift. There is no sign of intracran ial hemorrhage. There is minimal white matter hypodensity left posterior frontal lobe. Calvarium is i ntact. Cervical vertebra have normal alignment. There is degenerative spurring anteriorly from C3 to C6. Pos terior elements are intact. Facet joints are intact. Prevertebral soft tissues are intact. There is n ormal aeration of the mastoid sinuses. IMPRESSION: Mild spondylotic changes in the cervical spine. No fracture. There is possible mild chronic small vessel ischemia left posterior frontal lobe white matter. No acu te intracranial abnormality.
--- NOTE | 2021-06-11 21:23 | ED ---
Fall HPI - General Chief Complaint: Fall Stated Complaint: Fall Time Seen by Provider: 06/11/21 19:15 Source: EMS Mode of arrival: EMS - History of Present Illness Initial Comments: This 70-year-old female presents with a complaint of a fall. She states that she must have lost her balance fell and hit her face. She obtained a laceration to her lower and upper lip. She is unsure if she lost consciousness. She denies any other injuries or areas of pain. This occurred shortly prior to arrival. Patient initially denies drinking alcohol. Her son later shows up and relates that she does drink alcohol very regularly. She then does admit to drinking alcohol tonight. She denies any other complaints or modifying factors. She denies being on any blood thinner type medications. - Related Data Home Medications Medication Instructions Recorded Confirmed Levothyroxine Sodium [Synthroid] 175 mcg PO DAILY 06/25/19 06/25/19 Previous Rx's Medication Instructions Recorded Calcium Carb-Vit D 500Mg-5Mcg 2 each PO BID-W/MEALS #60 tab 07/10/19 [Oscal 500+D 5 Mcg (200 Iu)] Magnesium Oxide [Mag-Ox] 400 mg PO TID #90 tab 07/10/19 Pantoprazole [Protonix] 40 mg PO AC-BRKFST #30 tablet. 07/10/19 Amoxic-Pot Clav 875-125Mg 1 each PO Q12HR #20 tablet 06/11/21 [Augmentin Xr 875-125] Allergies Allergy/AdvReac Type Severity Reaction Status Date / Time No Known Allergies Allergy Verified 06/11/21 19:08 Review of Systems ROS Statement: Those systems with pertinent positive or pertinent negative responses have been documented in the HPI. ROS Other: All systems not noted in ROS Statement are negative. Past Medical History Past Medical History: Asthma, Eye Disorder, Hyperlipidemia, Hypertension, Pneumonia, Thyroid Disorder Additional Past Medical History / Comment(s): Bronchitis, hypothyroid, L eye glaucoma. History of Any Multi-Drug Resistant Organisms: None Reported Past Surgical History: Unable to Obtain, Tubal Ligation Past Anesthesia/Blood Transfusion Reactions: No Reported Reaction Past Psychological History: No Psychological Hx Reported Smoking Status: Current some day smoker Past Alcohol Use History: None Reported, Daily Past Drug Use History: None Reported - Past Family History Father History Unknown: Yes Additional Family Medical History / Comment(s): Father when pt was a baby Mother Family Medical History: No Reported History Additional Family Medical History / Comment(s): Mother was healthy. She is . General Exam - General Exam Comments Initial Comments: GENERAL: The patient is well nourished and well hydrated. VITAL SIGNS: Heart rate, blood pressure, respiratory rate reviewed as recorded in nurse's notes. EYES: Pupils are round and reactive. Extraocular movements are intact. No conjunctival / lid redness or swelling. ENT: There is a 3 cm comminuted upper inner lip laceration. There is a 1 cm l ower lip laceration. No foreign bodies are identified. Airway is patent. Throat is clear. There is absence of upper teeth noted which apparently were there prior so there is likely dental fracture. These appear to be significantly decayed at the root. In addition the lower dentition 3 in the most anterior aspects are also loose and a segment together. She likely has a dental fracture at the base of these teeth as well. NECK: Mild tenderness noted diffusely to the cervical spine. No swelling or evidence of injury. No subcutaneous emphysema. Trachea is midline. No thyroid mass. HEART: Regular rate and rhythm. Good peripheral pulses. LUNGS/CHEST: Breath sounds clear and equal bilaterally. No rales, rhonchi, or wheezes. No ecchymosis, subcutaneous emphysema, or tenderness. ABDOMEN: Abdomen soft without tenderness. No palpable masses or organomegaly. No peritoneal signs. No abdominal wall swelling or ecchymosis. EXTREMITIES: No extremity tenderness. Normal muscle tone and function. No thoracolumbar tenderness. NEUROLOGIC: Sensation is grossly intact. Cranial nerve exam reveals face is symmetrical, tongue is midline, speech is slurred. SKIN: No abrasions or ecchymosis is noted. No induration or masses noted. PSYCHIATRIC: Alert and oriented. Appears slightly intoxicated. Limitations: no limitations Course Vital Signs 06/11/21 19:04 Temperature 97.9 F Pulse Rate 91 Respiratory 20 Rate Blood Pressure 136/82 O2 Sat by Pulse 100 Oximetry Medical Decision Making - Medical Decision Making The patient was seen and examined. All diagnostics are reviewed. The laboratory does not show any acute significant abnormalities. The breath alcohol test is elevated at 0.194. The computed tomography scan of the brain d oes not show any acute abnormalities. The CT of the cervical spine shows evidence of degenerative changes but no fracture. The computed tomography scan of facial bones does not show any evidence of fracture but there is some sinus inflammation. Her lower lip was prepped and draped in usual sterile fashion. Utilizing approximately 4 mL of lidocaine with epinephrine a total of 10 sutures were placed to the upper 3 cm comminuted laceration. Excellent closure is noted. There also is a 1 cm lower lip laceration at the midline which is closed with 1 simple opted sutures. 5-0 Vicryl was utilized for both. Excellent closure noted. No complications encountered. Son is willing to take patient home and watch her. It is felt as though she is stable for discharge. She does have some degree of intoxication but overall is appropriate. Return parameters are discussed. She is counseled extensively regarding alcohol abuse and potential need for rehab. She will be placed on antibiotics due to her sinusitis, extensive laceration, and dental fractures. Return parameters are discussed. Close follow-up recommended with primary care and dentist. - Lab Data Result diagrams: 06/11/21 19:46 06/11/21 19:46 Lab Results 06/11/21 06/11/21 06/11/21 Range/Units 19:46 19:46 19:46 WBC 6.6 (3.8-10.6) k/uL RBC 4.31 (3.80-5.40) m/uL Hgb 13.6 (11.4-16.0) gm/dL Hct 40.2 (34.0-46.0) % MCV 93.4 (80.0-100.0) fL MCH 31.6 (25.0-35.0) pg MCHC 33.8 (31.0-37.0) g/dL RDW 15.5 (11.5-15.5) % Plt Count 259 (150-450) k/uL MPV 7.6 Neutrophils % 46 % Lymphocytes % 44 % Monocytes % 4 % Eosinophils % 3 % Basophils % 2 % Neutrophils # 3.0 (1.3-7.7) k/uL Lymphocytes # 2.9 (1.0-4.8) k/uL Monocytes # 0.2 (0-1.0) k/uL Eosinophils # 0.2 (0-0.7) k/uL Basophils # 0.1 (0-0.2) k/uL PT 12.0 (9.0-12.0) sec INR 1.1 (<1.2) APTT 23.2 (22.0-30.0) sec Sodium 140 (137-145) mmol/L Potassium 4.0 (3.5-5.1) mmol/L Chloride 102 (98-107) mmol/L Carbon Dioxide 24 (22-30) mmol/L Anion Gap 14 mmol/L BUN 17 (7-17) mg/dL Creatinine 0.95 (0.52-1.04) mg/dL Est GFR (CKD-EPI)AfAm 71 (>60 ml/min/1.73 sqM) Est GFR (CKD-EPI)NonAf 62 (>60 ml/min/1.73 sqM) Glucose 95 (74-99) mg/dL Calcium 9.1 (8.4-10.2) mg/dL Disposition Clinical Impression: Fall, Head injury, Lip laceration, Sinusitis, Cervical strain, Neck arthritis, Alcohol abuse, Alcohol intoxication, Tooth fracture Disposition: HOME SELF-CARE Condition: Fair Instructions (If sedation given, give patient instructions): Fall Prevention for Older Adults (ED), Alcohol Intoxication (ED), Abuse of Alcohol (ED), Head Injury (ED), Cervical Strain (ED), Acute Dental Trauma (ED) Additional Instructions: Please use Tylenol and/or Motrin as needed for pain. Prescriptions: Amoxic-Pot Clav 875-125Mg [Augmentin Xr 875-125] 1 each PO Q12HR #20 tablet Is patient prescribed a controlled substance at d/c from ED?: No Referrals: Kirk Feliz MD [Primary Care Provider] - 1-2 days Time of Disposition: 21:22
[2021-06-11 21:51] VITALS: BP 132/72; PULSE 90; RESP 16
== END 2021-06-11 21:39 | disposition home or self-care (01) ==
LOC: EC 19:02
DX: S09.90XA Unspecified injury of head, initial encounter (principal); S01.511A Laceration without foreign body of lip, initial encounter; J32.9 Chronic sinusitis, unspecified; S16.1XXA Strain of muscle, fascia and tendon at neck level, initial encounter; M46.92 Unspecified inflammatory spondylopathy, cervical region; F10.129 Alcohol abuse with intoxication, unspecified; Z23 Encounter for immunization; K03.81 Cracked tooth; J45.909 Unspecified asthma, uncomplicated; E78.5 Hyperlipidemia, unspecified; I10 Essential (primary) hypertension; E03.9 Hypothyroidism, unspecified; F17.200 Nicotine dependence, unspecified, uncomplicated; Z79.899 Other long term (current) drug therapy; W19.XXXA Unspecified fall, initial encounter
CPT/HCPCS: 12013; 36415; 70450; 70486; 72125; 80048; 85025; 85610; 85730; 90471; 90715; 99284

== ENCOUNTER 2021-09-12 15:54 | Observation (INO) | payer MEDICARE, OTHER ==
[2021-09-12] MEDS ORDERED: PROPARACAINE 0.5% OPHTH DROPS 15 ML BTL LEFT EYE STA (17:32)
--- NOTE | 2021-09-12 17:32 | ED ---
General Adult HPI - General Chief complaint: Eye Problems Stated complaint: Change in vision Time Seen by Provider: 09/12/21 17:08 Source: EMS Mode of arrival: EMS Limitations: physical limitation - History of Present Illness Initial comments: 71-year-old female with past medical history of hypertension, hyperlipidemia, glaucoma presents emergency department for multiple complaints. Son is at bedside. States that he has not been able to assist the patient in her care for quite some time. He began checking on her approximately one month ago and no ticed that she had significant visual loss. She does live alone and he has been frequently going over to her house to check on her because of the new visual loss. Reports that she used to wear glasses however they were found in her. She hasn't been able to eat or drink as she cannot prepare food for herself. Her house was found to be in shambles. He is concerned about her living conditions. Thought that that she was being cared for by her public guardian. He also feels that she has worsening dementia. Patient cannot state the year or her son's name. Patient has absolutely no vision in both eyes including light perception. They state that she did have a fall within the past month with head injury. No other alleviating, precipitating or modifying factors - Related Data Home Medications Medication Instructions Recorded Confirmed Levothyroxine Sodium [Synthroid] 175 mcg PO DAILY 06/25/19 09/12/21 Previous Rx's Medication Instructions Recorded Aspirin 81 mg PO DAILY #90 09/16/21 Metoprolol Succinate (ER) [Toprol 25 mg PO DAILY #90 09/16/21 XL] lisinopriL [Zestril] 5 mg PO DAILY #90 tab 09/16/21 Allergies Allergy/AdvReac Type Severity Reaction Status Date / Time No Known Allergies Allergy Verified 09/12/21 18:39 Review of Systems ROS Statement: Those systems with pertinent positive or pertinent negative responses have been documented in the HPI. ROS Other: All systems not noted in ROS Statement are negative. Past Medical History Past Medical History: Asthma, Eye Disorder, Hyperlipidemia, Hypertension, Pneumonia, Thyroid Disorder Additional Past Medical History / Comment(s): Bronchitis, hypothyroid, L eye glaucoma. History of Any Multi-Drug Resistant Organisms: None Reported Past Surgical History: Unable to Obtain, Tubal Ligation Past Anesthesia/Blood Transfusion Reactions: No Reported Reaction Past Psychological History: No Psychological Hx Reported Smoking Status: Current some day smoker Past Alcohol Use History: None Reported, Daily Past Drug Use History: None Reported - Past Family History Father History Unknown: Yes Additional Family Medical History / Comment(s): Father when pt was a baby Mother Family Medical History: No Reported History Additional Family Medical History / Comment(s): Mother was healthy. She is . General Exam Limitations: physical limitation General appearance: alert, in no apparent distress Head exam: Present: atraumatic, normocephalic, normal inspection Eye exam: Present: other (no light perception b/l eyes. corneas have white color. unable to performed EOM testing as patient can not see my finger. Pressures 11 mmhg bilaterally) Course Vital Signs 09/12/21 09/12/21 09/12/21 15:56 16:12 22:00 Temperature 98 F Pulse Rate 86 78 74 Respiratory 18 20 16 Rate Blood Pressure 163/108 147/96 122/84 O2 Sat by Pulse 100 100 100 Oximetry 09/13/21 09/13/21 09/13/21 01:00 04:00 06:21 Temperature Pulse Rate 74 74 75 Respiratory 16 16 15 Rate Blood Pressure 131/74 129/61 119/61 O2 Sat by Pulse 97 98 97 Oximetry 09/13/21 09/13/21 09/13/21 07:49 09:16 10:56 Temperature Pulse Rate 77 98 80 Respiratory 18 18 18 Rate Blood Pressure 126/85 94/53 O2 Sat by Pulse 100 97 Oximetry 09/13/21 09/13/21 09/13/21 12:09 14:00 16:00 Temperature 97.5 F L Pulse Rate 79 76 75 Respiratory 18 18 18 Rate Blood Pressure 121/83 O2 Sat by Pulse 96 99 97 Oximetry 09/13/21 17:48 Temperature 98.0 F Pulse Rate 98 Respiratory 18 Rate Blood Pressure 96/66 O2 Sat by Pulse 99 Oximetry EKG Findings - EKG Comments: EKG Findings:: EKG demonstrates a sinus rhythm with a rate of 76. KS interval 152. QRS 77. QTC of 460. There are inverted T waves with ST depression in V3 through V6, 2, [address] segment elevations Medical Decision Making - Medical Decision Making Upon arrival patient is placed into room 10. A thorough history and physical exam was performed. Visual acuity is attempted however the patient cannot even visualize light. Proparacaine was used to anesthetize the eye and pressures are obtained which are between 15 and 20 bilaterally. Patient does have obvious cataract. IV is established and laboratory studies were conducted. 12 lead EKG was performed which demonstrates diffuse T-wave inversions with depression. Because of this troponin is ordered. Does return and is 0.053. Patient given gentle fluid hydration. Recommended admission of trend her troponins and have cardiology see the patient. We'll also consult case management for possible penitentiary placement. Patient and family agreed and treatment plan patient is awaiting a bed on the floor - Lab Data Result diagrams: 09/13/21 05:21 09/13/21 05:21 Lab Results 09/12/21 09/12/21 09/12/21 Range/Units 17:45 17:45 17:45 WBC 4.5 (3.8-10.6) k/uL RBC 4.99 (3.80-5.40) m/uL Hgb 16.5 H (11.4-16.0) gm/dL Hct 50.1 H (34.0-46.0) % MCV 100.5 H (80.0-100.0) fL MCH 33.0 (25.0-35.0) pg MCHC 32.8 (31.0-37.0) g/dL RDW 13.8 (11.5-15.5) % Plt Count 238 (150-450) k/uL MPV 8.7 Neutrophils % 53 % Lymphocytes % 39 % Monocytes % 2 % Eosinophils % 3 % Basophils % 1 % Neutrophils # 2.4 (1.3-7.7) k/uL Lymphocytes # 1.7 (1.0-4.8) k/uL Monocytes # 0.1 (0-1.0) k/uL Eosinophils # 0.1 (0-0.7) k/uL Basophils # 0.1 (0-0.2) k/uL PT 11.9 (9.0-12.0) sec INR 1.1 (<1.2) APTT 26.6 (22.0-30.0) sec Sodium (137-145) mmol/L Potassium (3.5-5.1) mmol/L Chloride (98-107) mmol/L Carbon Dioxide (22-30) mmol/L Anion Gap mmol/L BUN (7-17) mg/dL Creatinine (0.52-1.04) mg/dL Est GFR (CKD-EPI)AfAm (>60 ml/min/1.73 sqM) Est GFR (CKD-EPI)NonAf (>60 ml/min/1.73 sqM) Glucose (74-99) mg/dL Lactic Ac Sepsis Rflx Plasma Lactic Acid Pio (0.7-2.0) mmol/L Calcium (8.4-10.2) mg/dL Magnesium (1.6-2.3) mg/dL Total Bilirubin (0.2-1.3) mg/dL AST (14-36) U/L ALT (4-34) U/L Alkaline Phosphatase (38-126) U/L Troponin I (0.000-0.034) ng/mL Total Protein (6.3-8.2) g/dL Albumin (3.5-5.0) g/dL Urine Color Yellow Urine Appearance Clear (Clear) Urine pH 5.5 (5.0-8.0) Ur Specific [place] 1.007 (1.001-1.035) Urine Protein Trace H (Negative) Urine Glucose (UA) Negative (Negative) Urine Ketones Trace H (Negative) Urine Blood Negative (Negative) Urine Nitrite Negative (Negative) Urine Bilirubin Negative (Negative) Urine Urobilinogen 2.0 (<2.0) mg/dL Ur Leukocyte Esterase Negative (Negative) 09/12/21 09/12/21 09/12/21 Range/Units 17:45 17:45 17:45 WBC (3.8-10.6) k/uL RBC (3.80-5.40) m/uL Hgb (11.4-16.0) gm/dL Hct (34.0-46.0) % MCV (80.0-100.0) fL MCH (25.0-35.0) pg MCHC (31.0-37.0) g/dL RDW (11.5-15.5) % Plt Count (150-450) k/uL MPV Neutrophils % % Lymphocytes % % Monocytes % % Eosinophils % % Basophils % % Neutrophils # (1.3-7.7) k/uL Lymphocytes # (1.0-4.8) k/uL Monocytes # (0-1.0) k/uL Eosinophils # (0-0.7) k/uL Basophils # (0-0.2) k/uL PT (9.0-12.0) sec INR (<1.2) APTT (22.0-30.0) sec Sodium 136 L (137-145) mmol/L Potassium 3.9 (3.5-5.1) mmol/L Chloride 94 L (98-107) mmol/L Carbon Dioxide 29 (22-30) mmol/L Anion Gap 13 mmol/L BUN 5 L (7-17) mg/dL Creatinine 1.08 H (0.52-1.04) mg/dL Est GFR (CKD-EPI)AfAm 60 (>60 ml/min/1.73 sqM) Est GFR (CKD-EPI)NonAf 52 (>60 ml/min/1.73 sqM) Glucose 138 H (74-99) mg/dL Lactic Ac Sepsis Rflx Plasma Lactic Acid Pio 2.3 H* (0.7-2.0) mmol/L Calcium 10.0 (8.4-10.2) mg/dL Magnesium 2.2 (1.6-2.3) mg/dL Total Bilirubin 2.0 H (0.2-1.3) mg/dL AST 75 H (14-36) U/L ALT 48 H (4-34) U/L Alkaline Phosphatase 95 (38-126) U/L Troponin I 0.053 H* (0.000-0.034) ng/mL Total Protein 10.4 H (6.3-8.2) g/dL Albumin 5.8 H (3.5-5.0) g/dL Urine Color Urine Appearance (Clear) Urine pH (5.0-8.0) Ur Specific [place] (1.001-1.035) Urine Protein (Negative) Urine Glucose (UA) (Negative) Urine Ketones (Negative) Urine Blood (Negative) Urine Nitrite (Negative) Urine Bilirubin (Negative) Urine Urobilinogen (<2.0) mg/dL Ur Leukocyte Esterase (Negative) 09/12/21 09/12/21 Range/Units 18:38 20:55 WBC (3.8-10.6) k/uL RBC (3.80-5.40) m/uL Hgb (11.4-16.0) gm/dL Hct (34.0-46.0) % MCV (80.0-100.0) fL MCH (25.0-35.0) pg MCHC (31.0-37.0) g/dL RDW (11.5-15.5) % Plt Count (150-450) k/uL MPV Neutrophils % % Lymphocytes % % Monocytes % % Eosinophils % % Basophils % % Neutrophils # (1.3-7.7) k/uL Lymphocytes # (1.0-4.8) k/uL Monocytes # (0-1.0) k/uL Eosinophils # (0-0.7) k/uL Basophils # (0-0.2) k/uL PT (9.0-12.0) sec INR (<1.2) APTT (22.0-30.0) sec Sodium (137-145) mmol/L Potassium (3.5-5.1) mmol/L Chloride (98-107) mmol/L Carbon Dioxide (22-30) mmol/L Anion Gap mmol/L BUN (7-17) mg/dL Creatinine (0.52-1.04) mg/dL Est GFR (CKD-EPI)AfAm (>60 ml/min/1.73 sqM) Est GFR (CKD-EPI)NonAf (>60 ml/min/1.73 sqM) Glucose (74-99) mg/dL Lactic Ac Sepsis Rflx Y Plasma Lactic Acid Pio 1.6 (0.7-2.0) mmol/L Calcium (8.4-10.2) mg/dL Magnesium (1.6-2.3) mg/dL Total Bilirubin (0.2-1.3) mg/dL AST (14-36) U/L ALT (4-34) U/L Alkaline Phosphatase (38-126) U/L Troponin I (0.000-0.034) ng/mL Total Protein (6.3-8.2) g/dL Albumin (3.5-5.0) g/dL Urine Color Urine Appearance (Clear) Urine pH (5.0-8.0) Ur Specific [place] (1.001-1.035) Urine Protein (Negative) Urine Glucose (UA) (Negative) Urine Ketones (Negative) Urine Blood (Negative) Urine Nitrite (Negative) Urine Bilirubin (Negative) Urine Urobilinogen (<2.0) mg/dL Ur Leukocyte Esterase (Negative) Disposition Clinical Impression: Dehydration, NSTEMI (non-ST elevated myocardial infarction), Abnormal EKG, Bilateral blindness Disposition: ADMITTED IP TO THIS HOSP Condition: Stable Is patient prescribed a controlled substance at d/c from ED?: No Decision to Admit Reason: Admit from EC Decision Date: 09/12/21 Decision Time: 20:21
[2021-09-12 17:55] LABS: Basophils # (A) 0.1 k/uL (0-0.2); Basophils % (A) 1 %; Eosinophils # (A) 0.1 k/uL (0-0.7); Eosinophils % (A) 3 %; HCT 50.1 % (34.0-46.0); HGB 16.5 gm/dL (11.4-16.0); Lymphocytes # (A) 1.7 k/uL (1.0-4.8); Lymphocytes % (A) 39 %; MCHC 32.8 g/dL (31.0-37.0); MCV 100.5 fL (80.0-100.0); Mean Platelet Volume 8.7; Monocytes # (A) 0.1 k/uL (0-1.0); Monocytes % (A) 2 %; Neutrophils # (A) 2.4 k/uL (1.3-7.7); Neutrophils % (A) 53 %; Platelet Count 238 k/uL (150-450); RBC 4.99 m/uL (3.80-5.40); RDW 13.8 % (11.5-15.5); WBC 4.5 k/uL (3.8-10.6)
[2021-09-12 18:04] LABS: Albumin 5.8 g/dL (3.5-5.0); Magnesium 2.2 mg/dL (1.6-2.3); Potassium 3.9 mmol/L (3.5-5.1); Total Protein 10.4 g/dL (6.3-8.2)
[2021-09-12 18:12] LABS: INR 1.1 (<1.2); Partial Thromboplastin Time 26.6 sec (22.0-30.0); Prothrombin Time 11.9 sec (9.0-12.0)
--- NOTE | 2021-09-12 18:47 | CT ---
EXAMINATION TYPE: CT brain yaquelin wo con DATE OF EXAM: 09/12/2021 COMPARISON: 06/11/2021 HISTORY: Fall, head injury, vision changes CT DLP: 1391.7 mGycm Automated exposure control for dose reduction was used. Images of the brain and cervical spine obtained with no contrast. There is mild cerebral atrophy. There is no mass effect or midline shift. There is no sign of intracr anial hemorrhage. There is normal aeration of the mastoid sinuses. Calvarium is intact. The cervical vertebra have normal alignment. There is degenerative mild disc space narrowing from C3 to C6 with spur formation. The facet joints are intact. There is no compression fracture. IMPRESSION: Mild cerebral atrophy. No acute intracranial abnormality. No change. Spondylotic changes in the cervical spine. No fracture. No change.
[2021-09-12] MEDS: SODIUM CHLORIDE 0.9% 1,000 ML IV SCH (19:25)
--- NOTE | 2021-09-12 19:43 | XR ---
EXAMINATION TYPE: XR chest 2V DATE OF EXAM: 09/12/2021 COMPARISON: 07/07/2019 HISTORY: Weakness TECHNIQUE: FINDINGS: Heart is normal. Lungs are clear of infiltrate. There is no heart failure. IMPRESSION: No active cardiopulmonary disease. There is clearing of small left pleural effusion albert red to old exam.
[2021-09-12 19:47] LABS: Appearance,Urine Clear (Clear); Bilirubin,Urine Negative (Negative); Blood,Urine Negative (Negative); Color,Urine Yellow; Glucose,Urine (UA) Negative (Negative); Ketones,Urine Trace (Negative); Leukocyte Esterase,Urine Negative (Negative); Nitrite,Urine Negative (Negative); PH, Urine 5.5 (5.0-8.0); Protein,Urine Trace (Negative); Specific Gravity,Urine 1.007 (1.001-1.035)
[2021-09-12] MEDS ORDERED: NALOXONE 0.4 MG/ML 1 ML VIAL IV PRN (21:05)
[2021-09-12] MEDS ORDERED: ASPIRIN 325 MG TAB PO STA (21:36)
[2021-09-12 21:59] LABS: Glucose,Whole Blood 96 mg/dL (75-99)
[2021-09-13 05:59] LABS: Basophils # (A) 0.1 k/uL (0-0.2); Basophils % (A) 1 %; Eosinophils # (A) 0.2 k/uL (0-0.7); Eosinophils % (A) 4 %; HCT 44.8 % (34.0-46.0); HGB 14.7 gm/dL (11.4-16.0); Lymphocytes % (A) 40 %; MCH 32.5 pg (25.0-35.0); MCHC 32.8 g/dL (31.0-37.0); MCV 98.9 fL (80.0-100.0); Mean Platelet Volume 8.7; Monocytes # (A) 0.2 k/uL (0-1.0); Monocytes % (A) 4 %; Neutrophils # (A) 2.4 k/uL (1.3-7.7); Neutrophils % (A) 49 %; Platelet Count 194 k/uL (150-450); RBC 4.53 m/uL (3.80-5.40); RDW 13.2 % (11.5-15.5)
[2021-09-13 06:18] LABS: Calcium 8.4 mg/dL (8.4-10.2); Potassium 3.6 mmol/L (3.5-5.1)
[2021-09-13 07:32] LABS: T4, Free (Free Thyroxine) <0.07 ng/dL (0.78-2.19)
[2021-09-13] MEDS: LEVOTHYROXINE 88 MCG TAB PO SCH (07:59)
[2021-09-13] MEDS: ATORVASTATIN 10 MG TAB PO SCH (08:00)
[2021-09-13] MEDS ORDERED: amLODIPine 10 MG TAB PO SCH (09:00)
[2021-09-13] MEDS: SODIUM CHLORIDE 0.9% 1,000 ML IV SCH ×2 (10:55→19:55)
[2021-09-13] MEDS: METOPROLOL TARTRATE 25 MG TAB PO SCH ×2 (10:56→19:55)
--- NOTE | 2021-09-13 11:42 | ECHOF ---
Referral Reason:LV function, abnormal trops, EKG changes MEASUREMENTS -------- HEIGHT: 0.0 cm WEIGHT: 0.0 kg BP: RVIDd: 2.3 cm (< 3.3) IVSd: 1.1 cm (0.6 - 1.1) LVIDd: 3.2 cm (3.9 - 5.3) LVPWd: 1.0 cm (0.6 - 1.1) IVSs: 1.4 cm LVIDs: 2.7 cm LVPWs: 1.2 cm LA Diam: 2.5 cm (2.7 - 3.8) Ao Diam: 2.2 cm (2.0 - 3.7) MV EXCURSION: 12.649 mm (> 18.000) MV EF SLOPE: 22 mm/s (70 - 150) EPSS: 0.9 cm MV E Andrew: 0.45 m/s MV DecT: 279 ms MV A Andrew: 0.66 m/s MV E/A Ratio: 0.68 RAP: 5.00 mmHg RVSP: 17.73 mmHg FINDINGS -------- Sinus rhythm. This was a technically adequate study. The left ventricular size is normal. There is borderline concentric left ventricular hypertrophy. Overall left ventricular systolic function is moderately impaired with, an EF between 35 - 40 %. A pex Hypokinesis.Cosider Apical ballooning syndrome The right ventricle is normal in size. The left atrium is normal in size. The right atrium is normal in size. Interatrial and interventricular septum intact. The aortic valve is trileaflet, and appears structurally normal. No aortic stenosis or regurgitation. Mild mitral regurgitation is present. Mild tricuspid regurgitation present. Right ventricular systolic pressure is normal at < 35 mmHg. The pulmonic valve is normal. The aortic root size is normal. Normal inferior vena cava with normal inspiratory collapse consistent with estimated right atrial pre ssure of 5 mmHg. There is no pericardial effusion. CONCLUSIONS -------- 1. The left ventricular size is normal. 2. There is borderline concentric left ventricular hypertrophy. 3. Forman Hypokinesis.Consider apical ballooning syndrome. 4. Mild mitral regurgitation is present. 5. Mild tricuspid regurgitation present. 6. There is no pericardial effusion. CORRECTION OFFICER: SHANELLE Rowan
--- NOTE | 2021-09-13 12:21 | P.CRDCN ---
<Sharonda Pimentel - Last Filed: 09/13/21 12:07> History of Present Illness Consult date: 09/13/21 History of present illness: HISTORY OF PRESENT ILLNESS: This is a 71 year old with a past medical history significant for hypertension, hyperlipidemia, and hypothyroidism. Patient does not follow with a gum dipper. We have been asked to see the patient in consultation for abnormal troponins. Patient examined at the bedside. Patient was brought to the hospital by her son for difficultly with her vision. Apparently the patient has been having some decreased vision in her left eye. Patient denies any chest pain or pressure. Denies SOB. Denies dizziness or lightheadedness. * EKG reveals sinus mechanism with diffuse t wave inversions * Chest xray no active cardiopulmonary disease. There is clearing of small left pleural effusion compared to old exam. * Laboratory data: WBC 5.0. Hemoglobin 14.7. Platelet count 194. Sodium 136 5. Potassium 3.6. BUN 3. Creatinine 0.87. Troponin 0.053. 0.039. 0.025. TSH 47.0. Free T4 less than 0.07. * Current home cardiac medications include Zocor 20 mg daily and amlodipine 10 mg daily REVIEW OF SYSTEMS: At the time of my exam: CONSTITUTIONAL: Denies fever or chills. HEENT: + decreased vision of left eye. Denies hemoptysis CARDIOVASCULAR: Denies chest pain. Denies orthopnea. Denies PND. Denies palpitations RESPIRATORY: Denies shortness of breath. GASTROINTESTINAL: Denies abdominal pain. Denies nausea or vomiting. HEMATOLOGIC: Denies bleeding disorders. GENITOURINARY: Denies any blood in urine. SKIN: Denies pruitis. Denies rash. PHYSICAL EXAM: VITAL SIGNS: Reviewed. GENERAL: Well-developed in no acute distress. HEENT: Head is normocephalic. Pupils are equal, round. Sclerae anicteric. Mucous membranes of the mouth are moist. Neck supple. No JVD or thyromegaly LUNGS: Respirations even and unlabored. Lungs essentially clear to auscultation bilaterally. HEART: Regular rate and rhythm. S1 and S2 heard. ABDOMEN: Soft. Nondistended. Nontender. EXTREMITIES: Normal range of motion. No clubbing or cyanosis. Peripheral pulses intact. No lower extremity edema NEUROLOGIC: Awake and alert. Oriented x 3. ASSESSMENT: Vision changes of left eye Hypertension Hyperlipidemia Hypothyroidism with abnormal TSH and Free T4 Abnormal troponins, etiology unclear PLAN: Obtain 2D echo to assess cardiac structure and function Aspirin 81 mg daily. Continue atorvastatin. Begin metoprolol tartrate 25 mg twice a day Management of abnormal TSH and T4 per internal medicine Further recommendations pending patient course Nurse practitioner note has been reviewed by physician. Signing provider agrees with the documented findings, assessment, and plan of care. Past Medical History Past Medical History: Asthma, Eye Disorder, Hyperlipidemia, Hypertension, Pneumonia, Thyroid Disorder Additional Past Medical History / Comment(s): Bronchitis, hypothyroid, L eye glaucoma, severe esophagitis, antral ulcer, hiatal hernia, bilateral cataracts. History of Any Multi-Drug Resistant Organisms: None Reported Past Surgical History: Tubal Ligation Additional Past Surgical History / Comment(s): EGD, colonoscopy Past Anesthesia/Blood Transfusion Reactions: No Reported Reaction Smoking Status: Light tobacco smoker - Past Family History Father History Unknown: Yes Additional Family Medical History / Comment(s): Father when pt was a baby Mother Family Medical History: No Reported History Additional Family Medical History / Comment(s): Mother was healthy. She is . Medications and Allergies Home Medications Medication Instructions Recorded Confirmed Type Levothyroxine Sodium [Synthroid] 175 mcg PO DAILY 06/25/19 09/12/21 History Simvastatin [Zocor] 20 mg PO DAILY 09/12/21 09/12/21 History amLODIPine [Norvasc] 10 mg PO DAILY 09/12/21 09/12/21 History Allergies Allergy/AdvReac Type Severity Reaction Status Date / Time No Known Allergies Allergy Verified 09/12/21 18:39 Physical Exam Vitals: Vital Signs Temp Pulse Resp BP Pulse Ox 09/13/21 10:56 80 18 94/53 97 09/13/21 09:16 98 18 09/13/21 07:49 77 18 126/85 100 09/13/21 06:21 75 15 119/61 97 09/13/21 04:00 74 16 129/61 98 09/13/21 01:00 74 16 131/74 97 09/12/21 22:00 74 16 122/84 100 09/12/21 16:12 78 20 147/96 100 09/12/21 15:56 98 F 86 18 163/108 100 Intake and Output 02/2809/13/21 09/13/21 22:59 06:59 14:59 Other: Weight 63.503 kg 63.503 kg Results 09/13/21 05:21 09/13/21 05:21 Cardiac Enzymes 09/12/21 09/12/21 09/12/21 Range/Units 17:45 17:45 23:39 AST 75 H (14-36) U/L Troponin I 0.053 H* 0.039 H* (0.000-0.034) ng/mL 09/13/21 Range/Units 03:04 AST (14-36) U/L Troponin I 0.025 (0.000-0.034) ng/mL Coagulation 09/12/21 Range/Units 17:45 PT 11.9 (9.0-12.0) sec APTT 26.6 (22.0-30.0) sec CBC 09/12/21 09/13/21 Range/Units 17:45 05:21 WBC 4.5 5.0 (3.8-10.6) k/uL RBC 4.99 4.53 (3.80-5.40) m/uL Hgb 16.5 H 14.7 (11.4-16.0) gm/dL Hct 50.1 H 44.8 (34.0-46.0) % Plt Count 238 194 (150-450) k/uL Comprehensive Metabolic Panel 09/12/21 09/13/21 Range/Units 17:45 05:21 Sodium 136 L 135 L (137-145) mmol/L Potassium 3.9 3.6 (3.5-5.1) mmol/L Chloride 94 L 103 (98-107) mmol/L Carbon Dioxide 29 26 (22-30) mmol/L BUN 5 L 3 L (7-17) mg/dL Creatinine 1.08 H 0.87 (0.52-1.04) mg/dL Glucose 138 H 85 (74-99) mg/dL Calcium 10.0 8.4 (8.4-10.2) mg/dL AST 75 H (14-36) U/L ALT 48 H (4-34) U/L Alkaline Phosphatase 95 (38-126) U/L Total Protein 10.4 H (6.3-8.2) g/dL Albumin 5.8 H (3.5-5.0) g/dL Current Medications Generic Name Dose Route Start Last Admin Trade Name Freq PRN Reason Stop Dose Admin Amlodipine Besylate 10 mg 09/13/21 09:00 09/13/21 08:00 Amlodipine 10 Mg Tab PO 10 mg DAILY ROD Administration Aspirin 81 mg 09/14/21 09:00 Aspirin 81 Mg PO DAILY ROD Atorvastatin Calcium 10 mg 09/13/21 09:00 09/13/21 08:00 Atorvastatin 10 Mg Tab PO 10 mg DAILY ROD Administration Sodium Chloride 1,000 mls @ 75 mls/hr 09/12/21 19:00 09/13/21 10:55 Saline 0.9% IV 75 mls/hr .[id number] ROD Administration Levothyroxine Sodium 176 mcg 09/13/21 06:30 09/13/21 07:59 Levothyroxine 88 Mcg Tab PO 176 mcg DAILY@0630 ROD Administration Metoprolol Tartrate 25 mg 09/13/21 10:00 09/13/21 10:56 Metoprolol Tartrate 25 Mg Tab PO Not Given BID ROD Naloxone HCl 0.2 mg 09/12/21 21:05 Naloxone 0.4 Mg/Ml 1 Ml Vial IV Q2M PRN Opioid Reversal Intake and Output 09/12/21 09/13/21 09/13/21 22:59 06:59 14:59 Other: Weight 63.503 kg 63.503 kg Patient Weight 09/14/21 06:59 Weight 63.503 kg 09/13/21 05:21 09/13/21 05:21 <Derik Schulte - Last Filed: 09/13/21 14:14> History of Present Illness History of present illness: Patient interviewed and examined by me. Data reviewed. Impression and plan formulated by me and discussed with nurse practitioner Nurse practitioner transcribed note on my behalf Physical Exam Vitals: Vital Signs Temp Pulse Resp BP Pulse Ox 09/13/21 12:09 79 18 96 09/13/21 10:56 80 18 94/53 97 09/13/21 09:16 98 18 09/13/21 07:49 77 18 126/85 100 09/13/21 06:21 75 15 119/61 97 09/13/21 04:00 74 16 129/61 98 09/13/21 01:00 74 16 131/74 97 09/12/21 22:00 74 16 122/84 100 09/12/21 16:12 78 20 147/96 100 09/12/21 15:56 98 F 86 18 163/108 100 Intake and Output 09/12/21 09/13/21 09/13/21 22:59 06:59 14:59 Other: Weight 63.503 kg 63.503 kg Results 09/13/21 05:21 09/13/21 05:21 Cardiac Enzymes 09/12/21 09/12/21 09/12/21 Range/Units 17:45 17:45 23:39 AST 75 H (14-36) U/L Troponin I 0.053 H* 0.039 H* (0.000-0.034) ng/mL 09/13/21 Range/Units 03:04 AST (14-36) U/L Troponin I 0.025 (0.000-0.034) ng/mL Coagulation 09/12/21 Range/Units 17:45 PT 11.9 (9.0-12.0) sec APTT 26.6 (22.0-30.0) sec Lipids 09/13/21 Range/Units 12:12 Triglycerides Cancelled Cholesterol Cancelled HDL Cholesterol Cancelled Cholesterol/HDL Ratio Cancelled CBC 09/12/21 09/13/21 Range/Units 17:45 05:21 WBC 4.5 5.0 (3.8-10.6) k/uL RBC 4.99 4.53 (3.80-5.40) m/uL Hgb 16.5 H 14.7 (11.4-16.0) gm/dL Hct 50.1 H 44.8 (34.0-46.0) % Plt Count 238 194 (150-450) k/uL Comprehensive Metabolic Panel 09/12/21 09/13/21 Range/Units 17:45 05:21 Sodium 136 L 135 L (137-145) mmol/L Potassium 3.9 3.6 (3.5-5.1) mmol/L Chloride 94 L 103 (98-107) mmol/L Carbon Dioxide 29 26 (22-30) mmol/L BUN 5 L 3 L (7-17) mg/dL Creatinine 1.08 H 0.87 (0.52-1.04) mg/dL Glucose 138 H 85 (74-99) mg/dL Calcium 10.0 8.4 (8.4-10.2) mg/dL AST 75 H (14-36) U/L ALT 48 H (4-34) U/L Alkaline Phosphatase 95 (38-126) U/L Total Protein 10.4 H (6.3-8.2) g/dL Albumin 5.8 H (3.5-5.0) g/dL Current Medications Generic Name Dose Route Start Last Admin Trade Name Freq PRN Reason Stop Dose Admin Aspirin 81 mg 09/14/21 09:00 Aspirin 81 Mg PO DAILY ROD Atorvastatin Calcium 10 mg 09/13/21 09:00 09/13/21 08:00 Atorvastatin 10 Mg Tab PO 10 mg DAILY ROD Administration Sodium Chloride 1,000 mls @ 75 mls/hr 09/12/21 19:00 09/13/21 10:55 Saline 0.9% IV 75 mls/hr .[id number] ROD Administration Levothyroxine Sodium 176 mcg 09/13/21 06:30 09/13/21 07:59 Levothyroxine 88 Mcg Tab PO 176 mcg DAILY@0630 ROD Administration Lisinopril 5 mg 09/14/21 09:00 Lisinopril 5 Mg Tab PO DAILY ROD Metoprolol Tartrate 25 mg 09/13/21 10:00 09/13/21 10:56 Metoprolol Tartrate 25 Mg Tab PO Not Given BID ROD Naloxone HCl 0.2 mg 09/12/21 21:05 Naloxone 0.4 Mg/Ml 1 Ml Vial IV Q2M PRN Opioid Reversal Intake and Output 09/12/21 09/13/21 09/13/21 22:59 06:59 14:59 Other: Weight 63.503 kg 63.503 kg Patient Weight 09/14/21 06:59 Weight 63.503 kg 09/13/21 05:21 09/13/21 05:21
[2021-09-14 04:08] LABS: Chol/HDL Ratio 2.34 Ratio; LDL Cholesterol,Calculated 97.4 mg/dL (0.0-131.0); VLDL Calculation 18.72 mg/dL (5.00-40.00)
[2021-09-14] MEDS: LEVOTHYROXINE 88 MCG TAB PO SCH (05:46)
[2021-09-14] MEDS: METOPROLOL TARTRATE 25 MG TAB PO SCH (08:04)
[2021-09-14] MEDS: ASPIRIN 81 MG PO SCH (08:04)
[2021-09-14] MEDS: ATORVASTATIN 10 MG TAB PO SCH (08:04)
[2021-09-14] MEDS: lisinopriL 5 MG TAB PO SCH (08:05)
--- NOTE | 2021-09-14 12:36 | P.PN ---
Subjective Progress Note Date: 09/14/21 HISTORY OF PRESENT ILLNESS: This is a 71 year old with a past medical history significant for hypertension, hyperlipidemia, and hypothyroidism. Patient does not follow with a flight operations manager. We have been asked to see the patient in consultation for abnormal troponins. Patient examined at the bedside. Patient was brought to the hospital by her son for difficultly with her vision. Apparently the patient has been having some decreased vision in her left eye. Patient denies any chest pain or pressure. Denies SOB. Denies dizziness or lightheadedness. * EKG reveals sinus mechanism with diffuse t wave inversions * Chest xray no active cardiopulmonary disease. There is clearing of small left pleural effusion compared to old exam. * Laboratory data: WBC 5.0. Hemoglobin 14.7. Platelet count 194. Sodium 136 5. Potassium 3.6. BUN 3. Creatinine 0.87. Troponin 0.053. 0.039. 0.025. TSH 47.0. Free T4 less than 0.07. * Current home cardiac medications include Zocor 20 mg daily and amlodipine 10 mg daily 09/14/2021 Patient examined this morning at the bedside. Patient denies any chest pain or pressure. She denies shortness of breath. Echocardiogram completed revealing ejection fraction 35-40%, hypokinesis of the apex, consider apical ballooning syndrome, mild TR, and mild MR. PHYSICAL EXAM: VITAL SIGNS: Reviewed. GENERAL: Well-developed in no acute distress. HEENT: Head is normocephalic. Pupils are equal, round. Sclerae anicteric. Mucous membranes of the mouth are moist. Neck supple. No JVD or thyromegaly LUNGS: Respirations even and unlabored. Lungs essentially clear to auscultation bilaterally. HEART: Regular rate and rhythm. S1 and S2 heard. EXTREMITIES: Normal range of motion. No clubbing or cyanosis. Peripheral pulses intact. No lower extremity edema ASSESSMENT: Vision changes of left eye Hypertension Hyperlipidemia Hypothyroidism with abnormal TSH and Free T4 Abnormal troponins, etiology unclear Cardiomyopathy, etiology unclear PLAN: Continue current cardiac medications including aspirin Lipitor and metoprolol Norvasc discontinued. Begin lisinopril 5 mg daily Management of abnormal TSH and T4 per internal medicine Patient will require coronary angiogram in the future as an outpatient after her thyroid issues have been addressed and treated Further recommendations pending patient course Nurse practitioner note has been reviewed by physician. Signing provider agrees with the documented findings, assessment, and plan of care. Objective - Vital Signs Vital signs: Vital Signs Temp 98.9 F 09/14/21 11:48 Pulse 60 09/14/21 11:48 Resp 18 09/14/21 11:48 BP 124/69 09/14/21 11:48 Pulse Ox 99 09/14/21 11:48 Intake & Output 09/13/21 09/14/21 09/14/21 18:59 06:59 18:59 Output Total 300 300 Balance -300 -300 Weight 63.503 kg Output: Urine 300 300 Other: Voiding Method Bedside Commode # Voids 1 - Labs CBC & Chem 7: 09/13/21 05:21 09/13/21 05:21 Labs: Abnormal Lab Results - Last 24 Hours (Table) 09/13/21 09/13/21 Range/Units 05:21 12:12 Cholesterol 203.00 H (0.00-200.00) mg/dL HDL Cholesterol 86.90 H (40.00-60.00) mg/dL TSH 55.200 H (0.465-4.680) mIU/L
[2021-09-14 16:40] LABS: Glucose,Whole Blood 109 mg/dL (75-99)
[2021-09-14] MEDS: SODIUM CHLORIDE 0.9% 1,000 ML IV SCH (17:32)
[2021-09-14 20:11] LABS: Glucose,Whole Blood 147 mg/dL (75-99)
--- NOTE | 2021-09-14 20:14 | HP ---
HISTORY AND PHYSICAL CHIEF COMPLAINT: Weakness, dehydration, blindness and failure to thrive as well as dehydration. HISTORY OF PRESENT ILLNESS: This is another admission for this 71-year-old -[place] female. She has not been seen in the office for over two years. She used to come in with essential hypertension, CKD, hyperlipidemia, asthma and a history of alcoholism. Her son apparently brought her in, realizing that she was unable to take care of herself at home. She was falling, stumbling around and unable to toilet herself, cleanse herself, prepare or eat a meal properly, etc. She is also totally blind. The reason for the blindness is not clear, but she has obvious dense cataracts at least. REVIEW OF SYSTEMS: She denies any headaches, chest pain, nausea, vomiting, fever, chills, abdominal pain, etc. Past medical history, family history, and personal and social histories are otherwise unremarkable or noncontributory. She is difficult to get a history from. When she was last seen in 2019, she was on levothyroxine, amlodipine, pantoprazole and simvastatin. She has a history of never having smoked and she reports that she is no longer drinking. PHYSICAL EXAMINATION: Blood pressure is 97/55 with a pulse of 84, respirations of 33, and she is afebrile. In general she appeared to be very dehydrated. Head, ears, eyes, nose, mouth and throat demonstrated dry mucous membranes and exotropia, which is old. She has dense cataracts. Pupils are equal and round. Neck is supple. Carotids are normal. Chest is clear. Cardiac exam demonstrates what sounds like sinus rhythm. No murmurs or extra sounds. Abdomen is soft and there are no masses. Extremities demonstrate extremely dry skin on feet. Neurologically she seems to be intact. She is admitted to the hospital with the diagnoses: 1. Dehydration. 2. General debility and failure to thrive. 3. Blindness. 4. Cataracts. 5. History of hypertension, hypothyroidism and hyperlipidemia. 6. Elevated troponin. PLAN: 1. IV fluids. 2. Monitor blood pressure. 3. Free T4 and TSH. 4. Discharge planning and social services designee consult. MMODL / IJN: [id number] /
--- NOTE | 2021-09-14 20:18 | PN ---
PROGRESS NOTE DATE OF SERVICE: 09/13/2021 CHIEF COMPLAINT: Dehydration, blindness, general debility. HISTORY OF PRESENT ILLNESS: This lady is awake and alert and has no complaints. She is worried about what is going to happen to her. She also wants know when somebody will be checking her vision. PHYSICAL EXAMINATION: Chest is clear. Cardiac exam is normal. Abdomen is soft, nontender. Hydration is improved. PLAN: 1. Continue with IV fluids. 2. Wait for the laboratory studies. 3. She is being seen by Cardiology. 4. radiology services manager consult. MMODL / IJN: [id number] /
--- NOTE | 2021-09-14 20:25 | PN ---
PROGRESS NOTE CHIEF COMPLAINT: Dehydration, blindness and history of hypertension. HISTORY OF PRESENT ILLNESS: This lady is doing well. She is awake and alert. She has had no shortness of breath, chest pain, abdominal pain, etc. PHYSICAL EXAMINATION: Her chest is clear. Cardiac exam is normal. Abdomen is soft, nontender. She is still very dehydrated. IMPRESSION: 1. Dehydration. 2. Failure to thrive. 3. Total blindness. PLAN: Continue with rehydration and resume her medications, which include thyroid. MMODL / IJN: [id number] /
[2021-09-15 06:07] LABS: Glucose,Whole Blood 85 mg/dL (75-99)
[2021-09-15] MEDS: SODIUM CHLORIDE 0.9% 1,000 ML IV SCH ×2 (06:18→16:11)
[2021-09-15] MEDS: LEVOTHYROXINE 88 MCG TAB PO SCH (06:18)
[2021-09-15] MEDS: lisinopriL 5 MG TAB PO SCH (08:39)
[2021-09-15] MEDS: METOPROLOL SUCCINATE (ER) 25 MG TAB.ER.24H PO SCH (08:39)
[2021-09-15] MEDS: ASPIRIN 81 MG PO SCH (08:39)
[2021-09-15] MEDS: ATORVASTATIN 10 MG TAB PO SCH (08:39)
--- NOTE | 2021-09-15 12:16 | P.PN ---
Subjective Progress Note Date: 09/15/21 HISTORY OF PRESENT ILLNESS: This is a 71 year old with a past medical history significant for hypertension, hyperlipidemia, and hypothyroidism. Patient does not follow with a transit worker. We have been asked to see the patient in consultation for abnormal troponins. Patient examined at the bedside. Patient was brought to the hospital by her son for difficultly with her vision. Apparently the patient has been having some decreased vision in her left eye. Patient denies any chest pain or pressure. Denies SOB. Denies dizziness or lightheadedness. * EKG reveals sinus mechanism with diffuse t wave inversions * Chest xray no active cardiopulmonary disease. There is clearing of small left pleural effusion compared to old exam. * Laboratory data: WBC 5.0. Hemoglobin 14.7. Platelet count 194. Sodium 136 5. Potassium 3.6. BUN 3. Creatinine 0.87. Troponin 0.053. 0.039. 0.025. TSH 47.0. Free T4 less than 0.07. * Current home cardiac medications include Zocor 20 mg daily and amlodipine 10 mg daily 09/14/2021 Patient examined this morning at the bedside. Patient denies any chest pain or pressure. She denies shortness of breath. Echocardiogram completed revealing ejection fraction 35-40%, hypokinesis of the apex, consider apical ballooning syndrome, mild TR, and mild MR. 09/15/2021 Patient examined this morning at the bedside. Patient denies any chest pain or pressure. She denies shortness of breath. Vital signs are stable. PHYSICAL EXAM: VITAL SIGNS: Reviewed. GENERAL: Well-developed in no acute distress. HEENT: Head is normocephalic. Pupils are equal, round. Sclerae anicteric. Mucous membranes of the mouth are moist. Neck supple. No JVD or thyromegaly LUNGS: Respirations even and unlabored. Lungs essentially clear to auscultation bilaterally. HEART: Regular rate and rhythm. S1 and S2 heard. EXTREMITIES: Normal range of motion. No clubbing or cyanosis. Peripheral pulses intact. No lower extremity edema ASSESSMENT: Vision changes of left eye Hypertension Hyperlipidemia Hypothyroidism with abnormal TSH and Free T4 Abnormal troponins, etiology unclear Cardiomyopathy, etiology unclear PLAN: Continue current cardiac medications Management of abnormal TSH and T4 per internal medicine Patient will require coronary angiogram in the future as an outpatient after her thyroid issues have been addressed and treated We will sign off. Please reconsult if needed. Nurse practitioner note has been reviewed by physician. Signing provider agrees with the documented findings, assessment, and plan of care. Objective - Vital Signs Vital signs: Vital Signs Temp 98.0 F 09/15/21 08:00 Pulse 76 09/15/21 08:00 Resp 14 09/15/21 08:00 BP 98/58 09/15/21 08:00 Pulse Ox 100 09/15/21 08:00 Intake & Output 09/14/21 09/15/21 09/15/21 18:59 06:59 18:59 Intake Total 818 Output Total 300 Balance 518 Intake: Intake, IV Titration 700 Amount Sodium Chloride 0.9% 1, 700 000 ml @ 75 mls/hr IV . [id number] ROD Rx#:[id number] Oral 118 Output: Urine 300 Other: Voiding Method Bedside Commode Bedside Commode # Voids 200 1 - Labs CBC & Chem 7: 09/13/21 05:21 09/13/21 05:21 Labs: Abnormal Lab Results - Last 24 Hours (Table) 09/14/21 09/14/21 Range/Units 16:38 20:10 POC Glucose (mg/dL) 109 H 147 H (75-99) mg/dL
[2021-09-16] MEDS: LEVOTHYROXINE 88 MCG TAB PO SCH (06:20)
[2021-09-16 07:58] VITALS: RESP 18; TEMP 97.4
[2021-09-16] MEDS: ASPIRIN 81 MG PO SCH (08:33)
[2021-09-16] MEDS: METOPROLOL SUCCINATE (ER) 25 MG TAB.ER.24H PO SCH (08:33)
[2021-09-16] MEDS: SODIUM CHLORIDE 0.9% 1,000 ML IV SCH (08:33)
[2021-09-16] MEDS: lisinopriL 5 MG TAB PO SCH (08:33)
[2021-09-16] MEDS: ATORVASTATIN 10 MG TAB PO SCH (08:33)
[2021-09-16 11:51] VITALS: BP 108/55; PULSE 63
--- NOTE | 2021-09-16 14:23 | DS ---
DISCHARGE SUMMARY CHIEF COMPLAINT: Frequent falling, weakness, general debility, dehydration and blindness. HISTORY OF PRESENT ILLNESS AND PHYSICAL EXAMINATION: Details of this lady's history and physical can be found in the initial workup. LABORATORY STUDIES: While she was in the hospital she had laboratory studies, details of which can be found in the laboratory section of her chart. COURSE IN THE HOSPITAL: After admission she was placed on bedrest, started intravenous fluids and rehydrated. She had no other problems. She was seen by Cardiology because of bradycardia. It was discovered that she was quite hypothyroid, which she had been in the past, and probably was not taking her levothyroxine. This was restarted and arrangements were finally made for her to go to physical therapy and rehab. She will go to [facility]. FINAL DIAGNOSIS: 1. Frequent falling. 2. General debility. 3. Failure to thrive. 4. Generalized weakness. 5. Hypothyroidism. 6. Dehydration. 7. Bilateral cataracts. 8. Legal blindness. OPERATIONS: None. CONSULTATION: Cardiology. She is improved. MMMARIPOSA / ELIEN: [id number] /
--- NOTE | 2021-09-16 18:35 | PN ---
PROGRESS NOTE CHIEF COMPLAINT: Dehydration, weakness, failure to thrive, frequent falling and blindness. HISTORY OF PRESENT ILLNESS: This lady is stable and we are waiting for some kind of a discharge arrangement. She had an echocardiogram and her ejection fraction is 35% to 40%. This could be related to her hypothyroidism. PHYSICAL EXAMINATION: Skin remains very dry. Chest is clear. Cardiac exam is normal. Abdomen is soft, nontender. Extremities are the same. IMPRESSION: Frequent falling, dehydration, hypothyroidism, blindness. PLAN: Await placement in a care home or other arrangements for discharge. MMODL / IJN: [id number] /
== END 2021-09-16 16:20 ==
LOC: EC 15:54 → INTOOBSV 21:31 → 3SCARD 21:31 → UNDODISIN 09-16 16:20
PROVIDERS: ADMIT Family Medicine; ATTEND Family Medicine
DX: E86.0 Dehydration (principal); R53.81 Other malaise; R62.7 Adult failure to thrive; Z68.24 Body mass index [BMI] 24.0-24.9, adult; R53.1 Weakness; E03.9 Hypothyroidism, unspecified; H26.9 Unspecified cataract; H53.9 Unspecified visual disturbance; H54.8 Legal blindness, as defined in USA; R00.1 Bradycardia, unspecified; R29.6 Repeated falls; I12.9 Hypertensive chronic kidney disease with stage 1 through stage 4 chronic kidney disease, or unspecified chronic kidney disease; N18.9 Chronic kidney disease, unspecified; E78.5 Hyperlipidemia, unspecified; J45.909 Unspecified asthma, uncomplicated; F10.21 Alcohol dependence, in remission; R94.6 Abnormal results of thyroid function studies; K20.90 Esophagitis, unspecified without bleeding; K44.9 Diaphragmatic hernia without obstruction or gangrene; H40.9 Unspecified glaucoma; R94.31 Abnormal electrocardiogram [ECG] [EKG]; I42.9 Cardiomyopathy, unspecified; R77.8 Other specified abnormalities of plasma proteins; Z87.01 Personal history of pneumonia (recurrent); Z87.09 Personal history of other diseases of the respiratory system; Z87.11 Personal history of peptic ulcer disease; Z79.890 Hormone replacement therapy; Z79.899 Other long term (current) drug therapy; Z60.2 Problems related to living alone; I08.1 Rheumatic disorders of both mitral and tricuspid valves; Z91.81 History of falling
CPT/HCPCS: 96361 ×4; 96360; 99285; 36415; 93005; 93306; 97116; 97162; 97535; 97166; 36410; 76937; 84439; 80061; 80053; 80048; 84443; 83605; 83735; 84484 ×2; 85025 ×2; 85610; 85730; 81003; 71046; 72125; 70450; G0378 ×5

== ENCOUNTER 2023-07-12 09:52 | Inpatient (IN) | payer MEDICARE, OTHER ==
--- NOTE | 2023-07-12 10:46 | ED ---
General Adult HPI - General Chief complaint: Abdominal Pain Stated complaint: Abd Pain Time Seen by Provider: 07/12/23 09:53 Source: patient, EMS Mode of arrival: EMS Limitations: no limitations - History of Present Illness Initial comments: Dictation was produced using [employer] dictation software. please excuse any grammatical, word or spelling errors. Chief Complaint: 72-year-old female presents emergency department for epigastric abdominal pain History of Present Illness: Patient 72-year-old female past medical history of peptic ulcer disease presents to the ER for acute on chronic epigastric abdominal pain. Patient states that she's been having pain for the last 34 days. States that the pain is in the epigastrium. She does report nausea vomiting. Denies any fevers. Denies any history of abdominal surgery. She is a poor historian. The ROS documented in this emergency department record has been reviewed and confirmed by me. Those systems with pertinent positive or negative responses have been documented in the HPI. All other systems are other negative and/or noncontributory. - Related Data Home Medications Medication Instructions Recorded Confirmed Acetaminophen [Tylenol] 650 mg PO Q6H PRN 07/12/23 07/12/23 Atorvastatin [Lipitor] 20 mg PO HS 07/12/23 07/12/23 Dorzolamide-Timol 2.23%/0.68% 1 drop BOTH EYES BID 07/12/23 07/12/23 [Cosopt] Latanoprost [Latanoprost 0.005%] 1 drop BOTH EYES HS 07/12/23 07/12/23 Levothyroxine Sodium [Levoxyl] 50 mcg PO DAILY@0700 07/12/23 07/12/23 Metoprolol Succinate (ER) [Toprol 12.5 mg PO DAILY 07/12/23 07/12/23 XL] Spironolactone [Aldactone] 12.5 mg PO DAILY 07/12/23 07/12/23 lisinopriL [Zestril] 5 mg PO HS 07/12/23 07/12/23 Previous Rx's Medication Instructions Recorded Aspirin 81 mg PO DAILY #90 09/16/21 Allergies Allergy/AdvReac Type Severity Reaction Status Date / Time No Known Allergies Allergy Verified 07/12/23 11:58 Review of Systems ROS Statement: Those systems with pertinent positive or pertinent negative responses have been documented in the HPI. ROS Other: All systems not noted in ROS Statement are negative. Past Medical History Past Medical History: Asthma, COPD, Eye Disorder, Hyperlipidemia, Hypertension, Pneumonia, Thyroid Disorder Additional Past Medical History / Comment(s): Bronchitis, hypothyroid, L eye glaucoma. History of Any Multi-Drug Resistant Organisms: None Reported Past Surgical History: Tubal Ligation Additional Past Surgical History / Comment(s): bilateral cataract surgery Past Anesthesia/Blood Transfusion Reactions: No Reported Reaction Past Psychological History: No Psychological Hx Reported Smoking Status: Former smoker Past Alcohol Use History: None Reported, Daily Past Drug Use History: None Reported - Past Family History Father History Unknown: Yes Additional Family Medical History / Comment(s): Father when pt was a baby Mother Family Medical History: No Reported History Additional Family Medical History / Comment(s): Mother was healthy. She is . General Exam - General Exam Comments Initial Comments: PHYSICAL EXAM: General Impression: Alert and oriented x3, not in acute distress HEENT: Normocephalic atraumatic, extra-ocular movements intact, pupils equal and reactive to light bilaterally, mucous membranes moist. Cardiovascular: Heart regular rate and rhythm Chest: Able to complete full sentences, no retractions, no tachypnea Abdomen: abdomen soft, no palpatory tenderness to the epigastrium, non- distended, no organomegaly Musculoskeletal: Pulses present and equal in all extremities, no peripheral edema Motor: no focal deficits noted Neurological: CN II-XII grossly intact, no focal motor or sensory deficits noted Skin: Intact with no visualized rashes Psych: Normal affect and mood Limitations: no limitations Course Vital Signs 07/12/23 07/12/23 07/12/23 09:57 12:17 15:00 Temperature 97.4 F L Pulse Rate 110 H 120 H 125 H Respiratory 18 18 18 Rate Blood Pressure 100/90 133/84 115/89 O2 Sat by Pulse 98 97 97 Oximetry 07/12/23 07/12/23 07/12/23 16:00 20:00 21:00 Temperature Pulse Rate 123 H 117 H 113 H Respiratory 18 18 18 Rate Blood Pressure 103/80 101/64 114/69 O2 Sat by Pulse 98 97 97 Oximetry 07/13/23 07/13/23 07/13/23 00:29 04:00 05:17 Temperature Pulse Rate 115 H 112 H 112 H Respiratory 19 17 17 Rate Blood Pressure 100/81 122/77 121/81 O2 Sat by Pulse Oximetry 07/13/23 09:25 Temperature Pulse Rate 115 H Respiratory 17 Rate Blood Pressure 119/80 O2 Sat by Pulse 96 Oximetry EKG Findings - EKG Comments: EKG Findings:: My EKG interpretation: Ventricular rate 119, sinus tachycardia,. Interval 164, QRS 69, QTC 410. No NH prolongation, no QTC prolongation, no ST or T-wave changes noted. Overall, this EKG is unremarkable Medical Decision Making - Medical Decision Making Was pt. sent in by a medical professional or institution (, PA, MIXER OPERATOR TABLETS, urgent care, hospital, or group home...) When possible be specific @ -No Did you speak to anyone other than the patient for history (EMS, parent, family, police, friend...)? What history was obtained from this source @ -No Did you review nursing and triage notes (agree or disagree)? Why? @ -I reviewed and agree with nursing and triage notes Were old charts reviewed (outside hosp., previous admission, EMS record, old EKG, old radiological studies, urgent care reports/EKG's, group home records)? Report findings @ -Previous cardiology notes reviewed shows that patient has elevated troponins in the past with unclear etiology. Differential Diagnosis (chest pain, altered mental status, abdominal pain women, abdominal pain men, vaginal bleeding, musculoskeletal, weakness, fever, dyspnea, syncope, headache, dizziness, GI bleed, back pain, seizure, CVA, palpatations, mental health)? @ -Differential Abdominal Pain Women: Appendicitis, Cholecystitis, diverticulosis, ischemic bowel, pancreatitis, hepatitis, UTI, gastroenteritis, AAA, incarcerated hernia, bowel obstruction, constipation, inflammatory bowel, hepatitis, peptic ulcer disease, splenic infarction, perforated viscus, vulvitis, ovarian torsion, PID, kidney stone, placenta abruption, this is not meant to be an all-inclusive list EKG interpreted by me (3pts min.). @ -See above X-rays interpreted by me (1pt min.). @ -Abdominal x-ray and chest x-ray shows no acute processes CT interpreted by me (1pt min.). @ -Computed tomography scan of the abdomen shows no acute processes U/S interpreted by me (1pt. min.). @ -None done What testing was considered but not performed or refused? (CT, X-rays, U/S, labs)? Why? @ -None What meds were considered but not given or refused? Why? @ -None Did you discuss the management of the patient with other professionals (professionals i.e. , PA, MIXER OPERATOR [employer]TS, lab, RT, psych nurse, aids social worker, carpet cutter, teacher, inspectors and regulatory officers, director case management)? Give summary @ -Case discussed with hospitalist for admission Was smoking cessation discussed for >3mins.? @ -No Was critical care preformed (if so, how long)? @ -No Were there social determinants of health that impacted care today? How? (Homelessness, low income, unemployed, alcoholism, drug addiction, transportation, low edu. Level, literacy, decrease access to med. care, [facility], rehab)? @ -No Was there de-escalation of care discussed even if they declined (Discuss DNR or withdrawal of care, Hospice)? DNR status @ -No What co-morbidities impacted this encounter? (DM, HTN, Smoking, COPD, CAD, Cancer, CVA, ARF, Chemo, Hep., AIDS, mental health diagnosis, sleep apnea, morbid obesity)? @ -None Was patient admitted / discharged? Hospital course, mention meds given and route, prescriptions, significant lab abnormalities, going to OR and other pertinent info. @ -72-year-old female with history of mental delay presents to the ER for epigastric abdominal pain. Vital signs upon arrival shows mild tachycardia 110 cumbersome vital signs within acceptable limits. Patient is soft abdomen however does complain of mild tenderness to the epigastrium. Laboratory evaluation shows leukocytosis 24.7. Metabolic panel shows sodium 129-like acidosis 3.1, troponin 0.114. Computed tomography scan of the abdomen and pelvis. shows no acute processes. Patient chart was reviewed later date. D-dimer is elevated at 10.1. Troponins are elevated however no significantly decreasing levels. Lipase level normal. Lactic acidosis initially 4.9/m of 1.1. Pulmonary perfusion imaging shows intermediate probability for pulmonary embolus. Patient started heparin Case discussed with Dr. Romero for admission and Undiagnosed new problem with uncertain prognosis? @ -No Drug Therapy requiring intensive monitoring for toxicity (Heparin, Nitro, Insulin, Cardizem)? @ -No Were any procedures done? @ -No Diagnosis/symptom? Acute, or Chronic, or Acute on Chronic? Uncomplicated (without systemic symptoms) or Complicated (systemic symptoms)? @ -Epigastric abdominal pain Side effects of treatment? @ -No Exacerbation, Progression, or Severe Exacerbation? @ -No Poses a threat to life or bodily function? How? (Chest pain, [place], [place], pneumonia, PE, COPD, DKA, ARF, appy, cholecystitis, CVA, Diverticulitis, Homicidal, Suicidal, threat to staff... and all critical care pts) @ -yes - Lab Data Result diagrams: 07/12/23 11:50 07/12/23 11:50 Lab Results 07/12/23 07/12/23 07/12/23 Range/Units 11:50 11:50 11:50 WBC 24.7 H (3.8-10.6) k/uL RBC 4.73 (3.80-5.40) m/uL Hgb 13.9 (11.4-16.0) gm/dL Hct 42.4 (34.0-46.0) % MCV 89.7 (80.0-100.0) fL MCH 29.3 (25.0-35.0) pg MCHC 32.7 (31.0-37.0) g/dL RDW 13.5 (11.5-15.5) % Plt Count 461 H (150-450) k/uL MPV 7.7 Neutrophils % 89 % Lymphocytes % 7 % Monocytes % 4 % Eosinophils % 1 % Basophils % 0 % Neutrophils # 21.9 H (1.3-7.7) k/uL Lymphocytes # 1.7 (1.0-4.8) k/uL Monocytes # 0.9 (0-1.0) k/uL Eosinophils # 0.1 (0-0.7) k/uL Basophils # 0.0 (0-0.2) k/uL PT 10.5 (10.0-12.5) sec INR 0.9 (<1.2) APTT 23.0 (22.0-30.0) sec Sodium 129 L (137-145) mmol/L Potassium 5.1 (3.5-5.1) mmol/L Chloride 89 L (98-107) mmol/L Carbon Dioxide 23 (22-30) mmol/L Anion Gap 17 mmol/L BUN 35 H (7-17) mg/dL Creatinine 1.13 H (0.52-1.04) mg/dL Est GFR (CKD-EPI)AfAm 57 (>60 ml/min/1.73 sqM) Est GFR (CKD-EPI)NonAf 49 (>60 ml/min/1.73 sqM) Glucose 125 H (74-99) mg/dL Lactic Ac Sepsis Rflx Plasma Lactic Acid Pio (0.7-2.0) mmol/L Calcium 10.2 (8.4-10.2) mg/dL Magnesium 2.1 (1.6-2.3) mg/dL Total Bilirubin 0.8 (0.2-1.3) mg/dL AST 26 (14-36) U/L ALT 16 (4-34) U/L Alkaline Phosphatase 124 (38-126) U/L Troponin I (0.000-0.034) ng/mL Total Protein 7.9 (6.3-8.2) g/dL Albumin 4.7 (3.5-5.0) g/dL 07/12/23 07/12/23 07/12/23 Range/Units 11:50 11:50 12:31 WBC (3.8-10.6) k/uL RBC (3.80-5.40) m/uL Hgb (11.4-16.0) gm/dL Hct (34.0-46.0) % MCV (80.0-100.0) fL MCH (25.0-35.0) pg MCHC (31.0-37.0) g/dL RDW (11.5-15.5) % Plt Count (150-450) k/uL MPV Neutrophils % % Lymphocytes % % Monocytes % % Eosinophils % % Basophils % % Neutrophils # (1.3-7.7) k/uL Lymphocytes # (1.0-4.8) k/uL Monocytes # (0-1.0) k/uL Eosinophils # (0-0.7) k/uL Basophils # (0-0.2) k/uL PT (10.0-12.5) sec INR (<1.2) APTT (22.0-30.0) sec Sodium (137-145) mmol/L Potassium (3.5-5.1) mmol/L Chloride (98-107) mmol/L Carbon Dioxide (22-30) mmol/L Anion Gap mmol/L BUN (7-17) mg/dL Creatinine (0.52-1.04) mg/dL Est GFR (CKD-EPI)AfAm (>60 ml/min/1.73 sqM) Est GFR (CKD-EPI)NonAf (>60 ml/min/1.73 sqM) Glucose (74-99) mg/dL Lactic Ac Sepsis Rflx Y Plasma Lactic Acid Pio 3.1 H* (0.7-2.0) mmol/L Calcium (8.4-10.2) mg/dL Magnesium (1.6-2.3) mg/dL Total Bilirubin (0.2-1.3) mg/dL AST (14-36) U/L ALT (4-34) U/L Alkaline Phosphatase (38-126) U/L Troponin I 0.114 H* (0.000-0.034) ng/mL Total Protein (6.3-8.2) g/dL Albumin (3.5-5.0) g/dL Disposition Clinical Impression: Epigastric pain Disposition: ADMITTED IP TO THIS HOSP Condition: Fair
--- NOTE | 2023-07-12 11:28 | XR ---
EXAMINATION TYPE: XR abdomen acute w cxr DATE OF EXAM: 07/12/2023 11:22 AM CLINICAL INDICATION:Female, 72 years old with history of epigastric abdominal pain; COMPARISON: None. TECHNIQUE: Two radiographic views of the abdomen (upright and supine) and a frontal chest radiograph were obtained. FINDINGS CHEST: Lungs/Pleura: Blunting of the costophrenic angles. There is no evidence of focal consolidation or pne umothorax. Mediastinum: Unremarkable. Vasculature: Normal. Heart: Heart is enlarged for size. Musculoskeletal: The osseous structures are intact. Other findings: No significant. FINDINGS ABDOMEN: Bowel gas pattern: Normal without dilated loops of small or large bowel. Fecal material and gas are d emonstrated throughout the colon and rectum. Abnormal calcifications: None. Musculoskeletal: Normal. Other: None. IMPRESSION: 1. Nonspecific bowel gas pattern, No radiographic evidence for acute abdominal process. 2. No acute cardiopulmonary process 3. Small bilateral pleural effusions.
[2023-07-12 12:18] LABS: Basophils % (A) 0 %; Eosinophils # (A) 0.1 k/uL (0-0.7); Eosinophils % (A) 1 %; HCT 42.4 % (34.0-46.0); HGB 13.9 gm/dL (11.4-16.0); Lymphocytes # (A) 1.7 k/uL (1.0-4.8); Lymphocytes % (A) 7 %; MCH 29.3 pg (25.0-35.0); MCHC 32.7 g/dL (31.0-37.0); MCV 89.7 fL (80.0-100.0); Mean Platelet Volume 7.7; Monocytes # (A) 0.9 k/uL (0-1.0); Monocytes % (A) 4 %; Neutrophils # (A) 21.9 k/uL (1.3-7.7); Neutrophils % (A) 89 %; Platelet Count 461 k/uL (150-450); RBC 4.73 m/uL (3.80-5.40); RDW 13.5 % (11.5-15.5); WBC 24.7 k/uL (3.8-10.6)
[2023-07-12] MEDS ORDERED: MORPHINE SULFATE 4 MG/ML SYRINGE IV STA (12:21)
[2023-07-12 12:26] LABS: ALT 16 U/L (4-34); AST 26 U/L (14-36); African American GFR (CKD) 57 (>60 ml/min/1.73 sqM); Albumin 4.7 g/dL (3.5-5.0); Alkaline Phosphatase 124 U/L (38-126); Anion Gap 17 mmol/L; Blood Urea Nitrogen 35 mg/dL (7-17); Calcium 10.2 mg/dL (8.4-10.2); Carbon Dioxide 23 mmol/L (22-30); Chloride 89 mmol/L (98-107); Glucose 125 mg/dL (74-99); Magnesium 2.1 mg/dL (1.6-2.3); Non-African American GFR(CKD) 49 (>60 ml/min/1.73 sqM); Potassium 5.1 mmol/L (3.5-5.1); Sodium 129 mmol/L (137-145); Total Bilirubin 0.8 mg/dL (0.2-1.3); Total Protein 7.9 g/dL (6.3-8.2)
[2023-07-12 12:59] LABS: INR 0.9 (<1.2); Prothrombin Time 10.5 sec (10.0-12.5)
[2023-07-12] MEDS ORDERED: SODIUM CHLORIDE 0.9% 500 ML 500 ML IV STA ×2 (13:17→16:45)
--- NOTE | 2023-07-12 14:30 | CT ---
EXAMINATION TYPE: CT abdomen pelvis w con DATE OF EXAM: 07/12/2023 COMPARISON: None HISTORY: epigastric pain, leukocytosis CT DLP: 1592.6 mGycm Automated exposure control for dose reduction was used. TECHNIQUE: Helical acquisition of images was performed from the lung bases through the pelvis. CONTRAST: Performed without Oral Contrast and with IV Contrast, patient injected with 80ml mL of Isovue 300. Di fficulty with contrast administration and study appears to have been performed without contrast. FINDINGS: There are small to moderate bilateral lateral pleural effusions. There are gallstones but no gallbladder distention, pericholecystic fluid or gallbladder distention. There is no biliary ductal dilatation. There is no organomegaly involving the liver, pancreas, spleen or adrenal glands. There are no renal calcifications or hydronephrosis. Caliber the abdominal aorta is normal. The bowel loops are normal in caliber and there is no bowel obstruction or inflammation. There is no free intraperitoneal air or fluid. There is no pelvic mass, free fluid, abscess or adenopathy. No focal osseous lesions are seen. IMPRESSION: 1. Small to moderate bilateral pleural effusions. 2. Cholelithiasis.
[2023-07-12] MEDS ORDERED: ASPIRIN 81 MG PO STA (14:48)
[2023-07-12] MEDS ORDERED: NITROGLYCERIN SL TABS 0.4 MG TAB SUBLINGUAL PRN (14:49)
[2023-07-13] MEDS ORDERED: ASPIRIN 325 MG TAB PO SCH (09:00)
--- NOTE | 2023-07-13 09:26 | NM ---
EXAMINATION TYPE: NM pul vent and perfuse DATE OF EXAM: 07/13/2023 CLINICAL INDICATION: Female, 72 years old with history of d dimer 10.8; Comparison: Radiograph 07/12/2023 TECHNIQUE: Utilizing inhalation of 38 mCi Tc 99m DTPA aerosol and intravenous injection of 5.1 mCi o f Tc 99m MAA, ventilation and perfusion images are acquired post injection in multiple projections. FINDINGS: Extensive ventilation defects are present throughout. Clumping of tracer within the central airways. There are at least moderate-sized perfusion defects involving the lateral right lower lobe and latera l left upper lobe. These appear to be matched defects. No discrete mismatched defects seen. IMPRESSION: Intermediate probability for pulmonary embolus.
[2023-07-13] MEDS ORDERED: HEPARIN SODIUM 1,000 UN/ML (10ML VL) IV PRN (09:55)
[2023-07-13] MEDS ORDERED: HEPARIN SODIUM 1,000 UN/ML (10ML VL) IV ONE (09:55)
[2023-07-13] MEDS ORDERED: HEPARIN SOD,PORK IN 0.45% NACL 25,000 UNIT in 0.45% NACL 1 250ML.BAG IV SCH (10:00)
[2023-07-13] MEDS ORDERED: ACETAMINOPHEN TAB 325 MG TAB PO PRN (10:36)
[2023-07-13] MEDS ORDERED: ASPIRIN 81 MG PO SCH (10:45)
[2023-07-13] MEDS: LEVOTHYROXINE 50 MCG TAB PO SCH (11:20)
[2023-07-13] MEDS: SPIRONOLACTONE 25 MG TAB PO SCH (11:21)
[2023-07-13] MEDS: METOPROLOL SUCCINATE (ER) 25 MG TAB.ER.24H PO SCH (11:21)
--- NOTE | 2023-07-13 12:05 | CONS ---
CONSULTATION HISTORY OF PRESENT ILLNESS: Wilda is a 72-year-old lady who presented to hospital complaining of epigastric abdominal pain. The patient has been having these symptoms for almost a month. Had some nausea, vomiting also. She had some vague chest discomfort with it. She is not particularly short of breath. Did not have palpitations, dizziness, or syncope. There is no prior history of coronary artery disease. The patient carries a history of hypothyroidism and stress-induced cardiomyopathy. She had Takotsubo syndrome in the past, but the LV function had normalized. An echocardiogram last year revealed normal LV systolic function with [id number] tricuspid regurgitation. The patient had elevated troponin for which Cardiology had been consulted. EKG shows sinus rhythm with nonspecific ST-T wave changes. The D-dimer was elevated at 10 and the patient has a creatinine of 1.1 and underwent a V/Q scan that showed intermediate probability for pulmonary embolism. The patient is currently on IV heparin. The patient had a prior hospitalization in August of 2021 and at that time had some visual changes. 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 The patient's clinical presentation is not consistent with acute coronary syndrome. We should hydrate the patient and obtain a CT scan of the chest to rule out pulmonary embolism. I am going to obtain a 2D echo to assess LV function and wall motion. She also has elevated lactic acid. Please consult Pulmonary also for further evaluation. PAST MEDICAL HISTORY: Significant for hypertension, hypothyroidism, and dyslipidemia. CURRENT MEDICATIONS: 1. Zestril. 2. Aldactone. 3. Toprol. 4. Levoxyl. 5. Lipitor. 6. Aspirin. 7. Tylenol. ALLERGIES: There are no known drug allergies. FAMILY HISTORY: Negative for premature coronary artery disease. SOCIAL HISTORY: Negative for smoking, EtOH abuse, or drug abuse. REVIEW OF SYSTEMS: HEENT: Unremarkable. CARDIAC: As described above. RESPIRATORY: As described above. GI: As described above. GENITOURINARY: Negative. ALLERGY/IMMUNOLOGY: Negative. SKIN: Negative. MUSCULOSKELETAL: Significant for arthritis. PSYCHOSOCIAL: Negative. DERM: Negative. CONSTITUTIONAL: Negative. ONCOLOGICAL: Negative. VEGETABLE TRIMMER: Negative. Rest of the system review is not relevant. LABORATORY DATA: CBC shows an elevated white cell count at 24, BUN is elevated, creatinine is high, and sodium is low. ASSESSMENT AND PLAN: 1. Troponin elevation, not consistent with a diagnosis of acute coronary syndrome. I will obtain a 2D echo to assess wall motion and LV function and when her other symptoms resolve, we should consider doing an outpatient stress test. 2. Elevated D-dimer and intermediate probability of V/Q scan. Consult Pulmonary and hydrate the patient and once the renal functions get better, consider a CT angiogram for definitive diagnosis. Thank you for giving us the privilege to participate in the care of this pleasant lady. JOHANA / ELIEN: [id number] /
[2023-07-13 12:29] LABS: Chol/HDL Ratio 2.47 Ratio; LDL Cholesterol,Calculated 63.4 mg/dL (0.0-131.0); VLDL Calculation 19.94 mg/dL (5.00-40.00)
--- NOTE | 2023-07-13 16:15 | US ---
EXAMINATION TYPE: US venous doppler duplex LE BI DATE OF EXAM: 07/13/2023 4:00 PM COMPARISON: CLINICAL INDICATION: Female, 72 years old with history of r/o DVT; On IV heparin. Elevated DDimer. Portable inpatient exam SIDE PERFORMED: Bilateral TECHNIQUE: The lower extremity deep venous system is examined utilizing real time linear array sonog unruly with graded compression, doppler sonography and color-flow sonography. VESSELS IMAGED: Common Femoral Vein Deep Femoral Vein Greater Saphenous Vein * Femoral Vein Popliteal Vein Small Saphenous Vein * Proximal Calf Veins (* superficial vessels) Right Leg: Negative for DVT Left Leg: Negative for DVT IMPRESSION: No evidence for DVT within the bilateral lower extremities imaged from the groin to the upper calves.
[2023-07-13] MEDS: DORZOLAMIDE-TIMOLOL 2.23%/0.68 10ML BTL BOTH EYES SCH ×2 (16:25→22:42)
[2023-07-13] MEDS ORDERED: LACTULOSE 20 GM/30 ML CUP PO ONE (17:33)
--- NOTE | 2023-07-13 17:40 | P.HPIM ---
History of Present Illness H&P Date: 07/13/23 Chief Complaint: Chest pain This is a 72-year-old patient, follows with Dr. Cruz. Chronic stable medical condition include COPD, hypertension, hyperlipidemia, hypothyroid, Patient is not a good historian has underlying cognitive impairment. Patient lives at [facility]. Aspirin the EMS report patient had been complaining of abdominal pain and she had been vomiting all night. Patient had some bump in her troponin for which cardiology was consulted. Patient pain lasted for some time but she also talks about chest pain. She is not sure she had any perspiration. Has been having bowel movements. VQ scan done this morning showed intermediate probability and patient was started on IV heparin. Review of systems: GEN.: Tired EYES: None HEENT: None NECK: None RESPIRATORY: None CARDIOVASCULAR: None GASTROINTESTINAL: As above GENITOURINARY: None MUSCULOSKELETAL: None LYMPHATICS: None HEMATOLOGICAL: None PSYCHIATRY: Forgetful NEUROLOGICAL: None Social history: Patient started smoking in her 20s and a light smoker. Currently at [facility]. No alcohol history. Physical examination: VITAL SIGNS: 97.4, 110, 18, 100/90, 98% on 2 L on presentation GENERAL: BMI 24, declining but awake comfortable. EYES: Pupils equal. Conjunctiva normal. HEENT: External appearance of nose and ears normal, oral cavity grossly normal. NECK: JVD not raised; masses not palpable. HEART: First and second heart sounds are normal; no edema. LUNGS: Respiratory rate normal; creased breath sounds. ABDOMEN: Soft, nontender, liver spleen not palpable, no masses palpable. PSYCH: Able tonsil simple questions. Not sure about a year. Noses June. Knows that she in the hospital.l. MUSCULOSKELETAL:No Clubbing/cyanosis;muscles-grossly intact. No NEUROLOGICAL: Cranial nerves grossly intact; no facial asymmetry, power and sensation grossly intact. LYMPHATICS: No lymph nodes palpable in the axilla and neck INVESTIGATIONS, reviewed in the clinical context: White count 24.7 hemoglobin 13.9 platelets 461 sodium 129 potassium 5.1 BUN 35 c reatinine 1.13 Lactic acid 3.1 peak 4.9 Troponin I 0.114, 0.142 EKG tracing personally reviewed by me-sinus tachycardia Abdominal x-ray: Fecal material and gas and demonstrated throughout the colon an d rectum. CT abdomen pelvis: Small to moderate bilateral pleural effusion. Gallstones. VQ scan: Intermediate probably due for PE Doppler ultrasound negative for DVT in both the right and left leg Assessment and plan: -Intermediate probability for PE. Not a very good historian. Had complained of some chest pain in the ER. Started on IV heparin and will be changed over to Xarelto. Pulmonary consulted -Patient reported to have abdominal pain with vomiting at the [facility]CF. Start Protonix. General surgery consulted -Moderate cognitive impairment -Essential hypertension Toprol-XL -Hypothyroid Levoxyl -Significant obstipation as per x-ray computed tomography scan of the abdomen Lactulose 20 g Past Medical History Past Medical History: Asthma, COPD, Eye Disorder, Hyperlipidemia, Hypertension, Pneumonia, Thyroid Disorder Additional Past Medical History / Comment(s): Bronchitis, hypothyroid, L eye glaucoma. History of Any Multi-Drug Resistant Organisms: None Reported Past Surgical History: Tubal Ligation Additional Past Surgical History / Comment(s): bilateral cataract surgery Past Anesthesia/Blood Transfusion Reactions: No Reported Reaction Past Psychological History: No Psychological Hx Reported Smoking Status: Former smoker Past Alcohol Use History: None Reported, Daily Past Drug Use History: None Reported - Past Family History Father History Unknown: Yes Additional Family Medical History / Comment(s): Father when pt was a baby Mother Family Medical History: No Reported History Additional Family Medical History / Comment(s): Mother was healthy. She is . Medications and Allergies Home Medications Medication Instructions Recorded Confirmed Type Aspirin 81 mg PO DAILY #90 09/16/21 07/12/23 Rx Acetaminophen [Tylenol] 650 mg PO Q6H PRN 07/12/23 07/12/23 History Atorvastatin [Lipitor] 20 mg PO HS 07/12/23 07/12/23 History Dorzolamide-Timol 2.23%/0.68% 1 drop BOTH EYES BID 07/12/23 07/12/23 History [Cosopt] Latanoprost [Latanoprost 0.005%] 1 drop BOTH EYES HS 07/12/23 07/12/23 History Levothyroxine Sodium [Levoxyl] 50 mcg PO DAILY@0700 07/12/23 07/12/23 History Metoprolol Succinate (ER) [Toprol 12.5 mg PO DAILY 07/12/23 07/12/23 History XL] Spironolactone [Aldactone] 12.5 mg PO DAILY 07/12/23 07/12/23 History lisinopriL [Zestril] 5 mg PO HS 07/12/23 07/12/23 History Allergies Allergy/AdvReac Type Severity Reaction Status Date / Time No Known Allergies Allergy Verified 07/12/23 11:58 Physical Exam Vitals: Vital Signs Pulse Resp BP Pulse Ox 07/13/23 09:25 115 H 17 119/80 96 07/13/23 05:17 112 H 17 121/81 07/13/23 04:00 112 H 17 122/77 07/13/23 00:29 115 H 19 100/81 07/12/23 21:00 113 H 18 114/69 97 07/12/23 20:00 117 H 18 101/64 97 07/12/23 16:00 123 H 18 103/80 98 07/12/23 15:00 125 H 18 115/89 97 07/12/23 12:17 120 H 18 133/84 97 Intake and Output 07/12/23 07/13/23 07/13/23 22:59 06:59 14:59 Other: Weight 63.503 kg Results CBC & Chem 7: 07/12/23 11:50 07/12/23 11:50 Labs: Abnormal Lab Results - Last 24 Hours (Table) 07/12/23 07/12/23 07/12/23 Range/Units 11:50 11:50 11:50 WBC 24.7 H (3.8-10.6) k/uL Plt Count 461 H (150-450) k/uL Neutrophils # 21.9 H (1.3-7.7) k/uL D-Dimer (<0.60) mg/L FEU Sodium 129 L (137-145) mmol/L Chloride 89 L (98-107) mmol/L BUN 35 H (7-17) mg/dL Creatinine 1.13 H (0.52-1.04) mg/dL Glucose 125 H (74-99) mg/dL Plasma Lactic Acid Pio 3.1 H* (0.7-2.0) mmol/L Troponin I (0.000-0.034) ng/mL 07/12/23 07/12/23 07/12/23 Range/Units 11:50 15:15 15:15 WBC (3.8-10.6) k/uL Plt Count (150-450) k/uL Neutrophils # (1.3-7.7) k/uL D-Dimer (<0.60) mg/L FEU Sodium (137-145) mmol/L Chloride (98-107) mmol/L BUN (7-17) mg/dL Creatinine (0.52-1.04) mg/dL Glucose (74-99) mg/dL Plasma Lactic Acid Pio 4.9 H* (0.7-2.0) mmol/L Troponin I 0.114 H* 0.142 H* (0.000-0.034) ng/mL 07/12/23 07/12/23 Range/Units 20:42 21:16 WBC (3.8-10.6) k/uL Plt Count (150-450) k/uL Neutrophils # (1.3-7.7) k/uL D-Dimer 10.81 H (<0.60) mg/L FEU Sodium (137-145) mmol/L Chloride (98-107) mmol/L BUN (7-17) mg/dL Creatinine (0.52-1.04) mg/dL Glucose (74-99) mg/dL Plasma Lactic Acid Pio (0.7-2.0) mmol/L Troponin I 0.150 H* (0.000-0.034) ng/mL
[2023-07-13] MEDS: PANTOPRAZOLE 40 MG TABLET PO SCH (18:30)
[2023-07-13] MEDS: Rivaroxaban Initiation Dose--VTE 15 MG TAB PO SCH (22:33)
[2023-07-13] MEDS: ATORVASTATIN 20 MG TAB PO SCH (22:42)
[2023-07-14] MEDS: LATANOPROST 0.005% OPHTH DROPS 2.5 ML BTL BOTH EYES SCH ×2 (00:29→20:56)
[2023-07-14] MEDS: LEVOTHYROXINE 50 MCG TAB PO SCH (06:34)
[2023-07-14] MEDS: PANTOPRAZOLE 40 MG TABLET PO SCH (06:34)
[2023-07-14] MEDS: ASPIRIN 81 MG PO SCH (07:42)
[2023-07-14] MEDS: SPIRONOLACTONE 25 MG TAB PO SCH (07:42)
[2023-07-14] MEDS: DORZOLAMIDE-TIMOLOL 2.23%/0.68 10ML BTL BOTH EYES SCH ×2 (07:42→20:56)
[2023-07-14] MEDS: METOPROLOL SUCCINATE (ER) 25 MG TAB.ER.24H PO SCH (07:42)
[2023-07-14 09:28] LABS: Basophils # (A) 0.1 k/uL (0-0.2); Basophils % (A) 1 %; Eosinophils # (A) 0.4 k/uL (0-0.7); Eosinophils % (A) 3 %; Hypochromasia Slight; Lymphocytes # (A) 2.4 k/uL (1.0-4.8); Lymphocytes % (A) 17 %; MCH 29.4 pg (25.0-35.0); MCHC 31.4 g/dL (31.0-37.0); MCV 93.6 fL (80.0-100.0); Mean Platelet Volume 7.6; Monocytes # (A) 0.7 k/uL (0-1.0); Monocytes % (A) 5 %; Neutrophils # (A) 10.5 k/uL (1.3-7.7); Neutrophils % (A) 74 %; Platelet Count 377 k/uL (150-450); RBC 3.52 m/uL (3.80-5.40); RDW 13.6 % (11.5-15.5); WBC 14.2 k/uL (3.8-10.6)
[2023-07-14 09:51] LABS: HGB 10.4 gm/dL (11.4-16.0)
--- NOTE | 2023-07-14 10:05 | CA ---
Transthoracic Echo Report Name: Wilda Marion Age: 72 Gender: F : 1950 Exam Date: 07/13/2023 12:30 Exam Location: [facility] [facility] Ht (in): 64 Wt (lb): 140 Ordering Physician: Sharonda Lopez Attending/Referring Phys: [id number], Jessica Quality Specialist Shreyas Boss Procedure CPT: Indications: LV function Cardiac Hx: Technical Quality: Technically difficult study Contrast 1: Definity Total Dose (mL): 2 Contrast 2: Total Dose (mL): MEASUREMENTS (Male / Female) Normal Values 2D ECHO LV Diastolic Diameter PLAX 3.2 cm 4.2 - 5.9 / 3.9 - 5.3 cm LV Systolic Diameter PLAX 2.1 cm IVS Diastolic Thickness 0.8 cm 0.6 - 1.0 / 0.6 - 0.9 cm LVPW Diastolic Thickness 1.0 cm 0.6 - 1.0 / 0.6 - 0.9 cm LV Relative Wall Thickness 0.6 RV Internal Dim ED PLAX 2.5 cm LVOT Diameter 1.9 cm Aortic Root Diameter 2.1 cm LA Systolic Diameter LX 2.0 cm 3.0 - 4.0 / 2.7 - 3.8 cm LV Diastolic Volume MOD 4C 16.0 cm??? LV Systolic Volume MOD 4C 10.7 cm??? LV Ejection Fraction MOD 4C 33.2 % LV Cardiac Index MOD 4C 373.2 cm???/min???m??? LV Diastolic Length 4C 4.8 cm LV Systolic Length 4C 4.4 cm Ascending Aorta Diameter 2.6 cm DOPPLER AV Peak Velocity 115.5 cm/s AV Peak Gradient 5.3 mmHg LVOT Peak Velocity 101.8 cm/s LVOT Peak Gradient 4.1 mmHg LVOT Velocity Time Integral 11.9 cm LVOT Stroke Volume 33.4 cm??? LVOT Stroke Volume Index 19.9 ml/m??? LVOT Cardiac Index 2353.6 cm???/min???m??? AV Area Cont Eq pk 2.5 cm??? MV Peak Velocity 109.6 cm/s MV Peak Gradient 4.8 mmHg MV Mean Velocity 57.9 cm/s MV Mean Gradient 1.7 mmHg MV Velocity Time Integral 22.0 cm Mitral E Point Velocity 69.7 cm/s Mitral A Point Velocity 105.8 cm/s Mitral E to A Ratio 0.7 MV Deceleration Time 83.8 ms MV E' Velocity 6.8 cm/s Mitral E to MV E' Ratio 10.2 TR Peak Velocity 274.8 cm/s TR Peak Gradient 30.2 mmHg Right Ventricular Systolic Press 35.2 mmHg PV Peak Velocity 123.1 cm/s PV Peak Gradient 6.1 mmHg FINDINGS Left Ventricle Normal LV size and wall thickness. Left ventricular ejection fraction is estimated at 55-60 %. Right Ventricle Normal right ventricular size. RVSP= 35mmHg. Right Atrium Normal right atrial size. Left Atrium Normal left atrial size. Mitral Valve Structurally normal mitral valve. Aortic Valve Trileaflet aortic valve. No aortic valve stenosis or regurgitation. Tricuspid Valve Tricuspid valve not well visualized. Mild TR. Pulmonic Valve Pulmonic valve not well visualized. No pulmonic regurgitation. Pericardium Not well visualized Aorta Normal size aortic root and proximal ascending aorta. CONCLUSIONS Technically difficult and limited study. Left ventricular ejection fraction 55-60% RVSP 35 Mild tricuspid regurgitation Previewed by: Dr. Tre Spears DO (Electronically Signed) Final Date: 14 July 2023 10:04
--- NOTE | 2023-07-14 11:41 | P.GSCN ---
History of Present Illness Consult date: 07/14/23 History of present illness: Patient is a 72-year-old female presents with a 2 to three-day history of abdominal pain. Patient states that she has had crampy abdominal pain for the last 2-3 days. Denies any nausea or emesis. No fevers or chills. No shortness of breath or chest pain. Patient states that she has had flatus, but states she has had diarrhea. No melena or hematochezia. Denies any prior episodes such as this. No recent abdominal surgeries. On presentation to [facility] a [facility] abdomen and pelvis was obtained which showed no acute intra- abdominal pathology. General surgery is consulted for further management of her abdominal pain. Review of Systems Negative except for as stated above Past Medical History Past Medical History: Asthma, COPD, Eye Disorder, Hyperlipidemia, Hypertension, Pneumonia, Thyroid Disorder Additional Past Medical History / Comment(s): Bronchitis, hypothyroid, L eye glaucoma. History of Any Multi-Drug Resistant Organisms: None Reported Past Surgical History: Tubal Ligation Additional Past Surgical History / Comment(s): bilateral cataract surgery Past Anesthesia/Blood Transfusion Reactions: No Reported Reaction Past Psychological History: No Psychological Hx Reported Smoking Status: Former smoker Past Alcohol Use History: None Reported, Daily Past Drug Use History: None Reported - Past Family History Father History Unknown: Yes Additional Family Medical History / Comment(s): Father when pt was a baby Mother Family Medical History: No Reported History Additional Family Medical History / Comment(s): Mother was healthy. She is . Medications and Allergies Home Medications Medication Instructions Recorded Confirmed Type Aspirin 81 mg PO DAILY #90 09/16/21 07/12/23 Rx Acetaminophen [Tylenol] 650 mg PO Q6H PRN 07/12/23 07/12/23 History Atorvastatin [Lipitor] 20 mg PO HS 07/12/23 07/12/23 History Dorzolamide-Timol 2.23%/0.68% 1 drop BOTH EYES BID 07/12/23 07/12/23 History [Cosopt] Latanoprost [Latanoprost 0.005%] 1 drop BOTH EYES HS 07/12/23 07/12/23 History Levothyroxine Sodium [Levoxyl] 50 mcg PO DAILY@0700 07/12/23 07/12/23 History Metoprolol Succinate (ER) [Toprol 12.5 mg PO DAILY 07/12/23 07/12/23 History XL] Spironolactone [Aldactone] 12.5 mg PO DAILY 07/12/23 07/12/23 History lisinopriL [Zestril] 5 mg PO HS 07/12/23 07/12/23 History Allergies Allergy/AdvReac Type Severity Reaction Status Date / Time No Known Allergies Allergy Verified 07/12/23 11:58 Surgical - Exam Vital Signs Temp Pulse Resp BP Pulse Ox 97.4 F L 110 H 18 100/90 98 07/12/23 09:57 07/12/23 09:57 07/12/23 09:57 07/12/23 09:57 07/12/23 09:57 Gen: AxO, NAD Pulm: non-labored respirations Abd: soft, non-tender, minimally distended, no guarding/rebound/rigidity Extrem: no edema seen Results - Labs 07/14/23 09:03 07/12/23 11:50 Abnormal Lab Results - Last 24 Hours (Table) 07/13/23 07/14/23 Range/Units 18:44 09:03 WBC 14.2 H (3.8-10.6) k/uL RBC 3.52 L (3.80-5.40) m/uL Hgb 10.4 L D (11.4-16.0) gm/dL Hct 33.0 L (34.0-46.0) % Neutrophils # 10.5 H (1.3-7.7) k/uL APTT 136.2 H* (22.0-30.0) sec Diabetes panel 07/13/23 Range/Units 07:02 Triglycerides 99.70 (0.00-149.00) mg/dL HDL Cholesterol 56.70 (40.00-60.00) mg/dL Assessment and Plan Assessment: Patient a 72-year-old female presents with abdominal pain, nausea and diarrhea without cross-sectional imaging findings of acute intra-abdominal pathology Plan: -Diet as tolerated -PRN pain and nausea control -Okay for anticoagulation from surgical standpoint -No acute surgical intervention; care per primary Lamin Guevara MD General Surgery
[2023-07-14 11:45] LABS: African American GFR (CKD) 78 (>60 ml/min/1.73 sqM); Blood Urea Nitrogen 34 mg/dL (7-17); Non-African American GFR(CKD) 67 (>60 ml/min/1.73 sqM)
[2023-07-14] MEDS: Rivaroxaban Initiation Dose--VTE 15 MG TAB PO SCH (11:48)
--- NOTE | 2023-07-14 12:25 | P.CNPUL ---
History of Present Illness Consult date: 07/14/23 Reason for consult: pulmonary embolism History of present illness: 72-year-old -[place] female patient was suspected to pulmonary embolism and pulmonary consultation was requested. The patient came in with some nonspecific chest pain with breathing. She had a VQ scan that showed intermediate probability ended up of lower extremities were negative. Nevertheless, she had an elevated d-dimer. She was started on anticoagulation and she is currently on Xarelto. Her creatinine is at 1.1. She is currently on room air oxygen. She is free of any chest pain or shortness of breath. She has no specific complaints. She lives at [facility] . She denies having any previous history of DVT or pulmonary embolism. She is essentially poor historian. She was also complaining of some abdominal pain and general surgery has been consulted. CAT scan of the abdomen showed small bilateral pleural effusions. There was cholelithiasis. No other acute abnormalities seen. No abdominal distention. No diarrhea. No emesis. No bleeding. White cell cause of 40 with a hemoglobin of 10 and a platelet count of 377. Creatinine is at 0.8 with a BUN of 34. She is alert and communicating. She denies having any other specific complaints for today. Echo of the heart was also completed and the patient was found to have a normal LV, normal ejection fraction, no significant pulmonary hypertension. No other abnormalities. Review of Systems Constitutional: Denies chills, Denies fever Eyes: denies as per HPI, denies blurred vision, denies bulging eye, denies decreased vision, denies diplopia, denies discharge, denies dry eye, denies irritation, denies itching, denies pain, denies photophobia, denies loss of peripheral vision, denies loss of vision, denies tunnel vision/blind spots Ears: deny: decreased hearing, ear discharge, earache, tinnitus Ears, nose, mouth and throat: Reports as per HPI Breasts: absent: as per HPI, change in shape, gynecomastia, masses, nipple discharge, pain, skin changes, swelling Cardiovascular: Reports chest pain Respiratory: Reports as per HPI Gastrointestinal: Reports as per HPI, Reports abdominal pain Genitourinary: Reports as per HPI Menstruation: Reports as per HPI Musculoskeletal: Reports as per HPI Musculoskeletal: absent: ankle pain, ankle stiffness, ankle swelling, as per HPI, elbow pain, elbow stiffness, elbow swelling, foot pain, foot stiffness, foot swelling, hand pain, hand stiffness, hand swelling, hip pain, hip stiffness, hip swelling, knee pain, knee stiffness, knee swelling, shoulder pain, shoulder stiffness, shoulder swelling, wrist pain, wrist stiffness, wrist swelling Integumentary: Reports as per HPI Neurological: Reports as per HPI Psychiatric: Reports as per HPI Endocrine: Reports as per HPI Hematologic/Lymphatic: Reports as per HPI Allergic/Immunologic: Reports as per HPI Past Medical History Past Medical History: COPD, Eye Disorder, Hyperlipidemia, Hypertension, Pneumonia, Thyroid Disorder Additional Past Medical History / Comment(s): hypothyroid, L eye glaucoma. History of Any Multi-Drug Resistant Organisms: None Reported Past Surgical History: Tubal Ligation Additional Past Surgical History / Comment(s): bilateral cataract surgery Past Anesthesia/Blood Transfusion Reactions: No Reported Reaction Past Psychological History: No Psychological Hx Reported Smoking Status: Former smoker Past Alcohol Use History: None Reported, Daily Past Drug Use History: None Reported - Past Family History Father History Unknown: Yes Additional Family Medical History / Comment(s): Father when pt was a baby Mother Family Medical History: No Reported History Additional Family Medical History / Comment(s): Mother was healthy. She is . Medications and Allergies Home Medications Medication Instructions Recorded Confirmed Type Aspirin 81 mg PO DAILY #90 09/16/21 07/12/23 Rx Acetaminophen [Tylenol] 650 mg PO Q6H PRN 07/12/23 07/12/23 History Atorvastatin [Lipitor] 20 mg PO HS 07/12/23 07/12/23 History Dorzolamide-Timol 2.23%/0.68% 1 drop BOTH EYES BID 07/12/23 07/12/23 History [Cosopt] Latanoprost [Latanoprost 0.005%] 1 drop BOTH EYES HS 07/12/23 07/12/23 History Levothyroxine Sodium [Levoxyl] 50 mcg PO DAILY@0700 07/12/23 07/12/23 History Metoprolol Succinate (ER) [Toprol 12.5 mg PO DAILY 07/12/23 07/12/23 History XL] Spironolactone [Aldactone] 12.5 mg PO DAILY 07/12/23 07/12/23 History lisinopriL [Zestril] 5 mg PO HS 07/12/23 07/12/23 History Allergies Allergy/AdvReac Type Severity Reaction Status Date / Time No Known Allergies Allergy Verified 07/12/23 11:58 Physical Exam Vitals: Vital Signs Temp Pulse Pulse Resp BP BP Pulse Ox 07/14/23 11:47 97.4 F L 94 16 110/75 100 07/14/23 07:39 105 H 16 07/14/23 07:38 98.2 F 105 H 16 104/68 100 07/14/23 04:51 98.0 F 100 16 94/64 100 07/14/23 02:00 100 16 07/14/23 00:25 100 16 109/55 97 07/13/23 21:14 101 H 16 07/13/23 19:54 99.0 F 101 H 16 97/62 100 07/13/23 16:23 98.6 F 112 H 16 110/72 96 07/13/23 13:31 16 07/13/23 13:30 97.5 F L 104 H 16 112/71 95 07/13/23 12:33 97.8 F 110 H 16 105/81 96 Intake and Output 07/13/23 07/14/23 07/14/23 22:59 06:59 14:59 Intake Total 226.023 Balance 226.023 Intake: Intake, IV Titration 108.023 Amount Heparin Sod,Pork in 0.45% 108.023 NaCl 25,000 unit In 0.45 % NaCl 1 250ml.bag @ 18 UNITS/KG/HR 11.431 mls/hr IV .[id number] [facility] Rx#: [id number] Oral 118 Other: Voiding Method Toilet Toilet Toilet # Voids 1 # Bowel Movements 1 GENERAL: BMI 24, declining but awake comfortable. The patient is currently on room air oxygen. EYES: Pupils equal. Conjunctiva normal. HEENT: External appearance of nose and ears normal, oral cavity grossly normal. NECK: JVD not raised; masses not palpable. HEART: First and second heart sounds are normal; no edema. LUNGS: Respiratory rate normal; creased breath sounds. ABDOMEN: Soft, nontender, liver spleen not palpable, no masses palpable. MUSCULOSKELETAL:No Clubbing/cyanosis;muscles-grossly intact. No NEUROLOGICAL: Cranial nerves grossly intact; no facial asymmetry, power and sensation grossly intact. LYMPHATICS: No lymph nodes palpable in the axilla and neck Results - Laboratory Findings CBC and BMP: 07/14/23 09:03 07/14/23 09:03 PT/INR, D-dimer PT 10.5 sec (10.0-12.5) 07/12/23 11:50 INR 0.9 (<1.2) 07/12/23 11:50 D-Dimer 10.81 mg/L FEU (<0.60) H 07/12/23 20:42 Abnormal lab findings: Abnormal Labs 07/12/23 07/12/23 07/12/23 11:50 11:50 11:50 WBC 24.7 H RBC Hgb Hct Plt Count 461 H Neutrophils # 21.9 H APTT D-Dimer Sodium 129 L Chloride 89 L BUN 35 H Creatinine 1.13 H Glucose 125 H Plasma Lactic Acid Pio 3.1 H* Troponin I 07/12/23 07/12/23 07/12/23 11:50 15:15 15:15 WBC RBC Hgb Hct Plt Count Neutrophils # APTT D-Dimer Sodium Chloride BUN Creatinine Glucose Plasma Lactic Acid Pio 4.9 H* Troponin I 0.114 H* 0.142 H* 07/12/23 07/12/23 07/13/23 20:42 21:16 18:44 WBC RBC Hgb Hct Plt Count Neutrophils # APTT 136.2 H* D-Dimer 10.81 H Sodium Chloride BUN Creatinine Glucose Plasma Lactic Acid Pio Troponin I 0.150 H* 07/14/23 07/14/23 09:03 09:03 WBC 14.2 H RBC 3.52 L Hgb 10.4 L D Hct 33.0 L Plt Count Neutrophils # 10.5 H APTT D-Dimer Sodium Chloride BUN 34 H Creatinine Glucose Plasma Lactic Acid Pio Troponin I - Diagnostic Findings Chest x-ray: image reviewed Assessment and Plan Plan: Nonspecific chest pain, no clear indication for pulmonary embolism. VQ scan was of a intermediate probability. Doppler of the lower extremity was negative. The patient had elevated d-dimer. No evidence of any pulmonary hypertension. No hypoxemia. No shortness of breath. Will need a CT angiogram of the chest. Abdominal pain, cholelithiasis without any significant intra-abdominal abnormalities and she is currently asymptomatic Dementia with cognitive impairments Hypertension Hypothyroidism COPD with is currently inactive and stable Glaucoma Plan Continue anticoagulation for the time being Proceed with a CT angiogram of the chest General surgery regarding the abdominal pain We'll continue to follow
--- NOTE | 2023-07-14 12:48 | CT ---
EXAMINATION TYPE: CT chest angio for PE CT DLP: 402.9 mGycm, Automated exposure control for dose reduction was used. DATE OF EXAM: 07/14/2023 12:22 PM COMPARISON: 07/13/2023 CLINICAL INDICATION:Female, 72 years old with history of int probab VQ; int probab VQ TECHNIQUE/CONTRAST: CTA scan of the thorax is performed with IV Contrast, patient injected with 68 mL of Isovue 370, MIP images are created and reviewed these are created on a separate workstation.. FINDINGS: Pulmonary Artery: There is no evidence for a central filling defect within the pulmonary vasculature to suggest acute pulmonary embolism. Limited evaluation of the segmental and subsegmental branches se condary to bolus timing. The pulmonary artery is of normal size. Lungs/Pleura: Trace to small bilateral pleural effusions. No evidence of focal consolidation or pneum othorax. Airway: Large airways are patent. Heart: Heart is within normal limits for size. Vasculature: No evidence of aortic aneurysm. Mediastinum: No gross evidence of adenopathy. Circumferential wall thickening of the esophagus most p ronounced distally measuring up to 5 mm. Musculoskeletal: No acute osseous abnormalities Soft Tissues: Unremarkable. Lower neck: No significant findings. Upper Abdomen: Gastrohepatic ligament prominent lymph nodes measuring up to 6 mm in short axis. IMPRESSION: 1. No evidence of central pulmonary embolism. Limited evaluation of the segmental and subsegmental br anches. 2. Small bilateral pleural effusions. 3. Circumferential wall thickening of the esophagus correlate for esophagitis. There are multiple gas trohepatic ligament prominent lymph nodes also present which could be reactive. Consider short-term f ollow-up after treatment. Follow up recommendations for incidental pulmonary nodules, if there are any, are per [employer] or [employer].
[2023-07-14 13:16] LABS: HCT 30.6 % (34.0-46.0); HGB 9.7 gm/dL (11.4-16.0); Hypochromasia Slight; MCH 29.5 pg (25.0-35.0); MCHC 31.8 g/dL (31.0-37.0); MCV 92.8 fL (80.0-100.0); Mean Platelet Volume 7.7; Platelet Count 372 k/uL (150-450); RDW 13.5 % (11.5-15.5)
--- NOTE | 2023-07-14 20:20 | P.PN ---
Subjective Progress Note Date: 07/14/23 SUBJECTIVE: Patient presents to the hospital with abdominal and epigastric pain. Patient has been beginning of the symptoms for last 1 month and nausea and vomiting. Weight chest discomfort. Next She has prior history of Takotsubo cardio myopathy with normalization of her LVEF. On admission her d-dimer was elevated and her VQ scan showed intermediate probability of PE. She also had elevation of troponin of 0.1 with a flat pattern. For this she was started on IV heparin therapy Since been started on IV heparin drip, she had stools and drop in her hemoglobin levels by 1. CT chest showed possible esophagitis Hemoglobin 13.9 on admission, today 10.4, repeat 9.7 BP 111/71, heart rate 93 PHYSICAL EXAMINATION Vital signs reviewed. Head: Normocephalic. Eyes: Sclerae nonicteric. Neck: Brisk carotid upstroke, no jugular venous distention. Lungs: Clear to auscultation. Heart: Regular rate and rhythm, S1-S2, no S3, no murmur or rub. Abdomen: Mild epigastric tenderness Extremities: No edema, intact distal pulses. ASSESSMENT Elevated troponin with flat pattern likely type II Normal LV systolic function with EF 55% next and prior history of Takotsubo cardio myopathy with recovered EF Esophagitis on chest CT Acute anemia, likely GI bleeding Elevated d-dimer due to above PLAN Stop IV heparin drip. Continue aspirin 81 mg due to elevated troponins, continue low-dose Lipitor 20 mg Continue metoprolol succinate 12.5 mg daily. On Aldactone 12.5 mg daily for unknown reason. We'll continue for now GI workup for GI bleeding and esophagitis Objective - Vital Signs Vital signs: Vital Signs Temp 97.9 F 07/14/23 15:59 Pulse 93 07/14/23 15:59 Resp 16 07/14/23 15:59 BP 111/71 07/14/23 15:59 Pulse Ox 100 07/14/23 15:59 FiO2 Intake & Output 07/14/23 07/14/23 07/15/23 06:59 18:59 06:59 Intake Total 108.023 100 Output Total 1040 Balance 108.023 -940 Intake: Intake, IV Titration 108.023 Amount Heparin Sod,Pork in 0.45% 108.023 NaCl 25,000 unit In 0.45 % NaCl 1 250ml.bag @ 18 UNITS/KG/HR 11.431 mls/hr IV .[id number] [facility] Rx#: [id number] Oral 100 Output: Urine 1040 Straight 520 Other: Voiding Method Toilet Toilet # Voids 1 # Bowel Movements 1 - Labs CBC & Chem 7: 07/14/23 12:59 07/14/23 09:03 Labs: Abnormal Lab Results - Last 24 Hours (Table) 07/13/23 07/14/23 07/14/23 Range/Units 18:44 09:03 09:03 WBC 14.2 H (3.8-10.6) k/uL RBC 3.52 L (3.80-5.40) m/uL Hgb 10.4 L D (11.4-16.0) gm/dL Hct 33.0 L (34.0-46.0) % Neutrophils # 10.5 H (1.3-7.7) k/uL APTT 136.2 H* (22.0-30.0) sec BUN 34 H (7-17) mg/dL 07/14/23 Range/Units 12:59 WBC 14.0 H (3.8-10.6) k/uL RBC 3.30 L (3.80-5.40) m/uL Hgb 9.7 L (11.4-16.0) gm/dL Hct 30.6 L (34.0-46.0) % Neutrophils # (1.3-7.7) k/uL APTT (22.0-30.0) sec BUN (7-17) mg/dL
[2023-07-14] MEDS: PANTOPRAZOLE 40 MG/10 ML VIAL IVP SCH (20:55)
[2023-07-14] MEDS: ATORVASTATIN 20 MG TAB PO SCH (20:55)
--- NOTE | 2023-07-14 22:03 | P.PN ---
Progress Note - Text Progress Note Date: 07/14/23 Chief Complaint: Chest pain This is a 72-year-old patient, follows with Dr. Cruz. Chronic stable medical condition include COPD, hypertension, hyperlipidemia, hypothyroid, Patient is not a good historian has underlying cognitive impairment. Patient lives at [facility]. Aspirin the EMS report patient had been complaining of abdominal pain and she had been vomiting all night. Patient had some bump in her troponin for which cardiology was consulted. Patient pain lasted for some time but she also talks about chest pain. She is not sure she had any perspiration. Has been having bowel movements. VQ scan done this morning showed intermediate probability and patient was started on IV heparin. 07/14/2023: Patient enlarged dark bowel movement last night. IV heparin was discontinued. This morning chest CT was ordered. Negative for PE. I comm unicated with Dr. Hall. Given negative ultrasound of the lower extremity. PE therefore unlikely. We'll stop Xarelto. I spoke to the on-call surgeon Dr. Guevara-. Discussed the case. No further intervention from his standpoint. PPI to continue. Active Medications Acetaminophen (Acetaminophen Tab 325 Mg Tab) 650 mg PO Q6H PRN PRN Reason: Moderate Pain (Scale 4 to 6) Aspirin (Aspirin 81 Mg) 81 mg PO DAILY [facility] Last Admin: 07/14/23 07:42 Dose: 81 mg Atorvastatin Calcium (Atorvastatin 20 Mg Tab) 20 mg PO HS [facility] Last Admin: 07/14/23 20:55 Dose: 20 mg Dorzolamide/Timolol (Dorzolamide-Timolol 2.23%/0.68 10ml Btl) 1 drops BOTH EYES BID [facility] Last Admin: 07/14/23 20:56 Dose: 1 drops Latanoprost (Latanoprost 0.005% Ophth Drops 2.5 Ml Btl) 1 drops BOTH EYES HS [facility] Last Admin: 07/14/23 20:56 Dose: Not Given Levothyroxine Sodium (Levothyroxine 50 Mcg Tab) 50 mcg PO DAILY@0700 [facility] Last Admin: 07/14/23 06:34 Dose: 50 mcg Metoprolol Succinate (Metoprolol Succinate (Er) 25 Mg Tab.Er.24h) 12.5 mg PO DAILY [facility] Last Admin: 07/14/23 07:42 Dose: 12.5 mg Nitroglycerin (Nitroglycerin Sl Tabs 0.4 Mg Tab) 0.4 mg SUBLINGUAL Q5M PRN PRN Reason: Chest Pain Pantoprazole Sodium (Pantoprazole 40 Mg Tablet) 40 mg PO AC-BRKFST [facility] Last Admin: 07/14/23 06:34 Dose: 40 mg Pantoprazole Sodium (Pantoprazole 40 Mg/10 Ml Vial) 40 mg IVP BID [facility] Last Admin: 07/14/23 20:55 Dose: 40 mg Spironolactone (Spironolactone 25 Mg Tab) 12.5 mg PO DAILY [facility] Last Admin: 07/14/23 07:42 Dose: 12.5 mg Social history: Patient started smoking in her 20s and a light smoker. Currently at [facility]. No alcohol history. Physical examination: VITAL SIGNS: 97.9, 93, 16, 11 7 x 71, 100% room air GENERAL: Laying in bed, comfortable EYES: Pupils equal. Conjunctiva normal. HEENT: External appearance of nose and ears normal, oral cavity grossly normal. NECK: JVD not raised; masses not palpable. HEART: First and second heart sounds are normal; no edema. LUNGS: Respiratory rate normal; creased breath sounds. ABDOMEN: Soft, nontender, liver spleen not palpable, no masses palpable. PSYCH: Able tonsil simple questions. Not sure about a year. Noses June. Knows that she in the hospital.l. MUSCULOSKELETAL:No Clubbing/cyanosis;muscles-grossly intact. No NEUROLOGICAL: Cranial nerves grossly intact; no facial asymmetry, power and sensation grossly intact. LYMPHATICS: No lymph nodes palpable in the axilla and neck INVESTIGATIONS, reviewed in the clinical context: 07/14/2023: White count 14 hemoglobin 9.7 platelets 372 White count 24.7 hemoglobin 13.9 platelets 461 sodium 129 potassium 5.1 BUN 35 creatinine 1.13 Lactic acid 3.1 peak 4.9 Troponin I 0.114, 0.142 EKG tracing personally reviewed by me-sinus tachycardia Abdominal x-ray: Fecal material and gas and demonstrated throughout the colon and rectum. CT abdomen pelvis: Small to moderate bilateral pleural effusion. Gallstones. VQ scan: Intermediate probably due for PE Doppler ultrasound negative for DVT in both the right and left leg Assessment and plan: -Intermediate probability for PE. Not a very good historian. Had complained of some chest pain in the ER. Started on IV heparin and will be changed over to Xarelto. Chest CTA: Negative for PE. In the setting of negative Dopplers on for lower extremity DVT. And possibly bleeding. GI. Stop Xarelto. -We'll GI bleed with history of coffee ground emesis. Had a dark stool yesterday evening. Doppler hemoglobin.. Protonix. Dr guevara from surgery following. -Acute blood loss anemia likely from GI bleed. Follow H&H. -Moderate cognitive impairment -Essential hypertension Toprol-XL -Hypothyroid Levoxyl -Significant obstipation as per x-ray computed tomography scan of the abdomen Lactulose 20 g Stop Xarelto. PPI. Follow H&H. Past Medical History Past Medical History: Asthma, COPD, Eye Disorder, Hyperlipidemia, Hypertension, Pneumonia, Thyroid Disorder Additional Past Medical History / Comment(s): Bronchitis, hypothyroid, L eye glaucoma. History of Any Multi-Drug Resistant Organisms: None Reported Past Surgical History: Tubal Ligation Additional Past Surgical History / Comment(s): bilateral cataract surgery Past Anesthesia/Blood Transfusion Reactions: No Reported Reaction Past Psychological History: No Psychological Hx Reported Smoking Status: Former smoker Past Alcohol Use History: None Reported, Daily Past Drug Use History: None Reported
[2023-07-15] MEDS: PANTOPRAZOLE 40 MG TABLET PO SCH (06:11)
[2023-07-15] MEDS: LEVOTHYROXINE 50 MCG TAB PO SCH (06:11)
[2023-07-15] MEDS: METOPROLOL SUCCINATE (ER) 25 MG TAB.ER.24H PO SCH (08:58)
[2023-07-15] MEDS: SPIRONOLACTONE 25 MG TAB PO SCH (08:59)
[2023-07-15] MEDS: PANTOPRAZOLE 40 MG/10 ML VIAL IVP SCH ×2 (08:59→19:37)
[2023-07-15] MEDS: DORZOLAMIDE-TIMOLOL 2.23%/0.68 10ML BTL BOTH EYES SCH ×2 (08:59→19:37)
[2023-07-15] MEDS: ASPIRIN 81 MG PO SCH (08:59)
[2023-07-15 09:56] LABS: Basophils # (A) 0.1 k/uL (0-0.2); Basophils % (A) 1 %; Eosinophils # (A) 0.4 k/uL (0-0.7); Eosinophils % (A) 3 %; HCT 29.9 % (34.0-46.0); HGB 9.5 gm/dL (11.4-16.0); Hypochromasia Slight; Lymphocytes % (A) 17 %; MCH 29.5 pg (25.0-35.0); MCHC 31.8 g/dL (31.0-37.0); MCV 92.7 fL (80.0-100.0); Mean Platelet Volume 7.4; Monocytes # (A) 0.7 k/uL (0-1.0); Monocytes % (A) 6 %; Neutrophils # (A) 8.2 k/uL (1.3-7.7); Neutrophils % (A) 71 %; Platelet Count 370 k/uL (150-450); RBC 3.23 m/uL (3.80-5.40); RDW 13.8 % (11.5-15.5); WBC 11.4 k/uL (3.8-10.6)
[2023-07-15] MEDS: FUROSEMIDE 10 MG/ML 4 ML VIAL IV SCH (11:49)
--- NOTE | 2023-07-15 12:45 | P.PN ---
Subjective Progress Note Date: 07/15/23 72-year-old -[place] female patient was suspected to pulmonary embolism and pulmonary consultation was requested. The patient came in with some nonspecific chest pain with breathing. She had a VQ scan that showed intermediate probability ended up of lower extremities were negative. Nevertheless, she had an elevated d-dimer. She was started on anticoagulation and she is currently on Xarelto. Her creatinine is at 1.1. She is currently on room air oxygen. She is free of any chest pain or shortness of breath. She has no specific complaints. She lives at [facility] . She denies having any previous history of DVT or pulmonary embolism. She is essentially poor historian. She was also complaining of some abdominal pain and general surgery has been consulted. CAT scan of the abdomen showed small bilateral pleural effusions. There was cholelithiasis. No other acute abnormalities seen. No abdominal distention. No diarrhea. No emesis. No bleeding. White cell cause of 40 with a hemoglobin of 10 and a platelet count of 377. Creatinine is at 0.8 with a BUN of 34. She is alert and communicating. She denies having any other specific complaints for today. Echo of the heart was also completed and the patient was found to have a normal LV, normal ejection fraction, no significant pulmonary hypertension. No other abnormalities. On today's evaluation of 07/15/2020, the patient is resting comfortably in bed. CT antigram of the chest was done and it showed no evidence of any pulmonary embolism. Based on that, the anti-coagulation was discontinued. The patient however has small bilateral pleural effusions. She'll be given a dose of Lasix today to assess her response to diuretics. Note that her echo was noted to be within normal limits. She has a preserved LV function with an EF of around 55- 60%. No significant valvular abnormalities. She denies having any chest pain. No other new complaints otherwise for now. She remains on room air oxygen. He is also on Aldactone 12.5 mg twice a day. She is on metoprolol 12.5 mg by mouth once a day. No reported aspiration. Objective - Vital Signs Vital signs: Vital Signs Temp 97.6 F 07/15/23 08:56 Pulse 97 07/15/23 08:57 Resp 16 07/15/23 08:57 BP 112/72 07/15/23 08:56 Pulse Ox 100 07/15/23 08:56 FiO2 Intake & Output 07/14/23 07/15/23 07/15/23 18:59 06:59 18:59 Intake Total 100 246 Output Total 1040 Balance -940 246 Intake: IV 10 Invasive Line 2 10 Oral 100 236 Output: Urine 1040 Straight 520 Other: Voiding Method Toilet Toilet Toilet # Voids 1 - Exam GENERAL: BMI 24, declining but awake comfortable. The patient is currently on room air oxygen. EYES: Pupils equal. Conjunctiva normal. HEENT: External appearance of nose and ears normal, oral cavity grossly normal. NECK: JVD not raised; masses not palpable. HEART: First and second heart sounds are normal; no edema. LUNGS: Respiratory rate normal; creased breath sounds. ABDOMEN: Soft, nontender, liver spleen not palpable, no masses palpable. MUSCULOSKELETAL:No Clubbing/cyanosis;muscles-grossly intact. No NEUROLOGICAL: Cranial nerves grossly intact; no facial asymmetry, power and sensation grossly intact. LYMPHATICS: No lymph nodes palpable in the axilla and neck - Labs CBC & Chem 7: 07/15/23 09:18 07/14/23 09:03 Labs: Abnormal Lab Results - Last 24 Hours (Table) 07/14/23 07/14/23 07/15/23 Range/Units 09:03 12:59 09:18 WBC 14.0 H 11.4 H (3.8-10.6) k/uL RBC 3.30 L 3.23 L (3.80-5.40) m/uL Hgb 9.7 L 9.5 L (11.4-16.0) gm/dL Hct 30.6 L 29.9 L (34.0-46.0) % Neutrophils # 8.2 H (1.3-7.7) k/uL BUN 34 H (7-17) mg/dL Assessment and Plan Plan: Nonspecific chest pain, no clear indication for pulmonary embolism. VQ scan was of a intermediate probability. Doppler of the lower extremity was negative. The patient had elevated d-dimer. No evidence of any pulmonary hypertension. No hypoxemia. No shortness of breath. CT antigram of the chest was negative for any pulmonary embolism. The patient has small bilateral pleural effusions. Abdominal pain, cholelithiasis without any significant intra-abdominal abnormalities and she is currently asymptomatic Dementia with cognitive impairments Hypertension Hypothyroidism COPD with is currently inactive and stable Glaucoma Plan Stop anticoagulation Give the patient Lasix 40 m IV push 1 Continue Aldactone General surgery regarding the abdominal pain, she is stable for now We'll continue to follow
--- NOTE | 2023-07-15 13:50 | P.PN ---
Subjective Progress Note Date: 07/15/23 Principal diagnosis: Abdominal pain Patient says her pain is improved. Denies pain currently. No vomiting. Says she feels full. No real nausea. She is afraid to eat heavy foods. She would like a liquid diet. Objective - Vital Signs Vital signs: Vital Signs Temp 97.4 F L 07/15/23 11:49 Pulse 88 07/15/23 11:49 Resp 16 07/15/23 11:49 BP 109/73 07/15/23 11:49 Pulse Ox 100 07/15/23 11:49 FiO2 Intake & Output 07/14/23 07/15/23 07/15/23 18:59 06:59 18:59 Intake Total 100 346 Output Total 1040 Balance -940 346 Intake: IV 10 Invasive Line 2 10 Oral 100 336 Output: Urine 1040 Straight 520 Other: Voiding Method Toilet Toilet Toilet # Voids 1 2 - Exam Abdomen: Soft, nontender, nondistended - Labs CBC & Chem 7: 07/15/23 09:18 07/14/23 09:03 Labs: Abnormal Lab Results - Last 24 Hours (Table) 07/15/23 Range/Units 09:18 WBC 11.4 H (3.8-10.6) k/uL RBC 3.23 L (3.80-5.40) m/uL Hgb 9.5 L (11.4-16.0) gm/dL Hct 29.9 L (34.0-46.0) % Neutrophils # 8.2 H (1.3-7.7) k/uL Assessment and Plan (1) Abdominal pain Narrative/Plan: 72-year-old female with abdominal pain and diarrhea. Symptoms improved. Patient requesting liquid diet. Will switch to full liquids. If symptoms persist may require upper endoscopy. Patient with gallstones seen on recent CAT scan which also could be contributing to her symptoms. Will follow. Current Visit: Yes Status: Acute Code(s): R10.9 - UNSPECIFIED ABDOMINAL PAIN SNOMED Code(s): 68534094
--- NOTE | 2023-07-15 16:00 | P.PN ---
Progress Note - Text Progress Note Date: 07/15/23 Chief Complaint: Chest pain This is a 72-year-old patient, follows with Dr. Cruz. Chronic stable medical condition include COPD, hypertension, hyperlipidemia, hypothyroid, Patient is not a good historian has underlying cognitive impairment. Patient lives at [facility]. Aspirin the EMS report patient had been complaining of abdominal pain and she had been vomiting all night. Patient had some bump in her troponin for which cardiology was consulted. Patient pain lasted for some time but she also talks about chest pain. She is not sure she had any perspiration. Has been having bowel movements. VQ scan done this morning showed intermediate probability and patient was started on IV heparin. 07/14/2023: Patient enlarged dark bowel movement last night. IV heparin was discontinued. This morning chest CT was ordered. Negative for PE. I comm unicated with Dr. Hall. Given negative ultrasound of the lower extremity. PE therefore unlikely. We'll stop Xarelto. I spoke to the on-call surgeon Dr. Guevara-. Discussed the case. No further intervention from his standpoint. PPI to continue. 07/15/2023: No abdominal pain. Liquid diet. Hemoglobin 9.5. Xarelto was discontinued yesterday because of the negative chest CTA. Probable upper GI bleed. Active Medications Acetaminophen (Acetaminophen Tab 325 Mg Tab) 650 mg PO Q6H PRN PRN Reason: Moderate Pain (Scale 4 to 6) Aspirin (Aspirin 81 Mg) 81 mg PO DAILY [facility] Last Admin: 07/15/23 08:59 Dose: 81 mg Atorvastatin Calcium (Atorvastatin 20 Mg Tab) 20 mg PO HS [facility] Last Admin: 07/14/23 20:55 Dose: 20 mg Dorzolamide/Timolol (Dorzolamide-Timolol 2.23%/0.68 10ml Btl) 1 drops BOTH EYES BID ROD Last Admin: 07/15/23 08:59 Dose: 1 drops Furosemide (Furosemide 10 Mg/Ml 4 Ml Vial) 40 mg IV DAILY [facility] Last Admin: 07/15/23 11:49 Dose: 40 mg Latanoprost (Latanoprost 0.005% Ophth Drops 2.5 Ml Btl) 1 drops BOTH EYES HS [facility] Last Admin: 07/14/23 20:56 Dose: Not Given Levothyroxine Sodium (Levothyroxine 50 Mcg Tab) 50 mcg PO DAILY@0700 [facility] Last Admin: 07/15/23 06:11 Dose: 50 mcg Metoprolol Succinate (Metoprolol Succinate (Er) 25 Mg Tab.Er.24h) 12.5 mg PO DAILY [facility] Last Admin: 07/15/23 08:58 Dose: 12.5 mg Nitroglycerin (Nitroglycerin Sl Tabs 0.4 Mg Tab) 0.4 mg SUBLINGUAL Q5M PRN PRN Reason: Chest Pain Pantoprazole Sodium (Pantoprazole 40 Mg Tablet) 40 mg PO AC-BRKFST [facility] Last Admin: 07/15/23 06:11 Dose: 40 mg Pantoprazole Sodium (Pantoprazole 40 Mg/10 Ml Vial) 40 mg IVP BID [facility] Last Admin: 07/15/23 08:59 Dose: 40 mg Spironolactone (Spironolactone 25 Mg Tab) 12.5 mg PO DAILY [facility] Last Admin: 07/15/23 08:59 Dose: 12.5 mg Social history: Patient started smoking in her 20s and a light smoker. Currently at [facility]. No alcohol history. Physical examination: VITAL SIGNS: 97.4, 88, 16, 109/73, 100% room air GENERAL: Laying in bed, comfortable EYES: Pupils equal. Conjunctiva normal. HEENT: External appearance of nose and ears normal, oral cavity grossly normal. NECK: JVD not raised; masses not palpable. HEART: First and second heart sounds are normal; no edema. LUNGS: Respiratory rate normal; creased breath sounds. ABDOMEN: Soft, nontender, liver spleen not palpable, no masses palpable. PSYCH: Able tonsil simple questions. Not sure about a year. Noses June. Knows that she in the hospital.l. MUSCULOSKELETAL:No Clubbing/cyanosis;muscles-grossly intact. No INVESTIGATIONS, reviewed in the clinical context: July 15: Hemoglobin 9.5 07/14/2023: White count 14 hemoglobin 9.7 platelets 372 White count 24.7 hemoglobin 13.9 platelets 461 sodium 129 potassium 5.1 BUN 35 creatinine 1.13 Lactic acid 3.1 peak 4.9 Troponin I 0.114, 0.142 EKG tracing personally reviewed by me-sinus tachycardia Abdominal x-ray: Fecal material and gas and demonstrated throughout the colon and rectum. CT abdomen pelvis: Small to moderate bilateral pleural effusion. Gallstones. VQ scan: Intermediate probably due for PE Doppler ultrasound negative for DVT in both the right and left leg Assessment and plan: -Intermediate probability for PE. Not a very good historian. Had complained of some chest pain in the ER. Started on IV heparin and will be changed over to Xarelto. Chest CTA: Negative for PE. In the setting of negative Dopplers on for lower extremity DVT. And possibly bleeding. GI. Stop Xarelto. -Suspicious for upper GI bleed with history of coffee ground emesis and dark stools.. Protonix. General surgery following. Follow H&H -Acute blood loss anemia likely from GI bleed. Follow H&H. -Moderate cognitive impairment -Essential hypertension Toprol-XL -Hypothyroid Levoxyl -Significant obstipation as per x-ray computed tomography scan of the abdomen Lactulose 20 g Full liquid diet. Past Medical History Past Medical History: Asthma, COPD, Eye Disorder, Hyperlipidemia, Hypertension, Pneumonia, Thyroid Disorder Additional Past Medical History / Comment(s): Bronchitis, hypothyroid, L eye glaucoma. History of Any Multi-Drug Resistant Organisms: None Reported Past Surgical History: Tubal Ligation Additional Past Surgical History / Comment(s): bilateral cataract surgery Past Anesthesia/Blood Transfusion Reactions: No Reported Reaction Past Psychological History: No Psychological Hx Reported Smoking Status: Former smoker Past Alcohol Use History: None Reported, Daily Past Drug Use History: None Reported
--- NOTE | 2023-07-15 18:21 | P.PN ---
Subjective Progress Note Date: 07/15/23 SUBJECTIVE: Patient presents to the hospital with abdominal and epigastric pain. Patient has been beginning of the symptoms for last 1 month and nausea and vomiting. Weight chest discomfort. Next She has prior history of Takotsubo cardio myopathy with normalization of her LVEF. On admission her d-dimer was elevated and her VQ scan showed intermediate probability of PE. She also had elevation of troponin of 0.1 with a flat pattern. For this she was started on IV heparin therapy Since been started on IV heparin drip, she had stools and drop in her hemoglobin levels by 1. CT chest showed possible esophagitis Hemoglobin 13.9 on admission, today 10.4, repeat 9.7 -->9.4 BP 110/70, heart rate [address] showed small bilateral pleural effusion. On clinical examination she does not appear volume overloaded. She was started on IV diuretics by pulmonology team PHYSICAL EXAMINATION Vital signs reviewed. Head: Normocephalic. Eyes: Sclerae nonicteric. Neck: Brisk carotid upstroke, no jugular venous distention. Lungs: Clear to auscultation. Heart: Regular rate and rhythm, S1-S2, no S3, no murmur or rub. Abdomen: Mild epigastric tenderness Extremities: No edema, intact distal pulses. ASSESSMENT Elevated troponin with flat pattern likely type II Normal LV systolic function with EF 55% Prior history of Takotsubo cardio myopathy with recovered EF Mild HFpEF exacerbation Esophagitis on chest CT Acute anemia, likely GI bleeding Elevated d-dimer due to above PLAN Stop IV heparin drip. Continue aspirin 81 mg due to elevated troponins, continue low-dose Lipitor 20 mg Continue metoprolol succinate 12.5 mg daily. On Aldactone 12.5 mg daily . Continue for now. Monitor renal function Started on IV Lasix by pulmonary team. Computed tomography scan shows small pleural effusions. Clinically she does not appear volume overloaded with no elevated JVD or swelling in the legs. She may benefit from 1-2 doses of IV Lasix but I would not place her on long-term diuretic therapy at this time. GI workup for GI bleeding and esophagitis Cardiology team will sign off at this time. Please reconsult us in case of any questions. Objective - Vital Signs Vital signs: Vital Signs Temp 98.1 F 07/15/23 16:43 Pulse 101 H 07/15/23 16:43 Resp 16 07/15/23 16:43 BP 107/69 07/15/23 16:43 Pulse Ox 100 07/15/23 16:43 FiO2 Intake & Output 07/14/23 07/15/23 07/15/23 18:59 06:59 18:59 Intake Total 100 474 Output Total 1040 Balance -940 474 Intake: IV 20 Invasive Line 2 20 Oral 100 454 Output: Urine 1040 Straight 520 Other: Voiding Method Toilet Toilet Toilet # Voids 1 2 - Labs CBC & Chem 7: 07/15/23 09:18 07/14/23 09:03 Labs: Abnormal Lab Results - Last 24 Hours (Table) 07/15/23 Range/Units 09:18 WBC 11.4 H (3.8-10.6) k/uL RBC 3.23 L (3.80-5.40) m/uL Hgb 9.5 L (11.4-16.0) gm/dL Hct 29.9 L (34.0-46.0) % Neutrophils # 8.2 H (1.3-7.7) k/uL
[2023-07-15] MEDS: ATORVASTATIN 20 MG TAB PO SCH (19:37)
[2023-07-15] MEDS: LATANOPROST 0.005% OPHTH DROPS 2.5 ML BTL BOTH EYES SCH (19:38)
[2023-07-15 22:58] LABS: % Iron Saturation 13.89 (12.00-45.00)
[2023-07-16] MEDS: PANTOPRAZOLE 40 MG TABLET PO SCH (06:27)
[2023-07-16] MEDS: LEVOTHYROXINE 50 MCG TAB PO SCH (06:27)
[2023-07-16] MEDS: METOPROLOL SUCCINATE (ER) 25 MG TAB.ER.24H PO SCH (08:14)
[2023-07-16] MEDS: PANTOPRAZOLE 40 MG/10 ML VIAL IVP SCH ×2 (08:15→21:22)
[2023-07-16] MEDS: DORZOLAMIDE-TIMOLOL 2.23%/0.68 10ML BTL BOTH EYES SCH ×2 (08:15→21:22)
[2023-07-16] MEDS: FUROSEMIDE 10 MG/ML 4 ML VIAL IV SCH (08:15)
[2023-07-16] MEDS: SPIRONOLACTONE 25 MG TAB PO SCH (08:15)
[2023-07-16 08:24] LABS: Basophils # (A) 0.1 k/uL (0-0.2); Basophils % (A) 1 %; Eosinophils # (A) 0.4 k/uL (0-0.7); Eosinophils % (A) 4 %; HCT 30.1 % (34.0-46.0); HGB 9.3 gm/dL (11.4-16.0); Hypochromasia Slight; Lymphocytes # (A) 2.4 k/uL (1.0-4.8); Lymphocytes % (A) 23 %; MCH 28.6 pg (25.0-35.0); MCHC 30.9 g/dL (31.0-37.0); MCV 92.8 fL (80.0-100.0); Mean Platelet Volume 7.7; Monocytes # (A) 0.6 k/uL (0-1.0); Monocytes % (A) 6 %; Neutrophils # (A) 6.6 k/uL (1.3-7.7); Neutrophils % (A) 64 %; Platelet Count 399 k/uL (150-450); RBC 3.25 m/uL (3.80-5.40); RDW 13.8 % (11.5-15.5); WBC 10.2 k/uL (3.8-10.6)
--- NOTE | 2023-07-16 12:37 | P.PN ---
Subjective Progress Note Date: 07/16/23 Principal diagnosis: Abdominal pain Patient says she feels better today. No abdominal pain. Some chest pain with coughing. Tolerating full liquids. Does not want solid food. Objective - Vital Signs Vital signs: Vital Signs Temp 97.8 F 07/16/23 08:12 Pulse 104 H 07/16/23 12:06 Resp 16 07/16/23 12:06 BP 127/80 07/16/23 12:06 Pulse Ox 100 07/16/23 12:06 FiO2 Intake & Output 07/15/23 07/16/23 07/16/23 18:59 06:59 18:59 Intake Total 474 20 250 Output Total 200 Balance 474 20 50 Weight 71.7 kg Intake: IV 20 20 10 Invasive Line 2 20 20 10 Oral 454 240 Output: Urine 200 Other: Voiding Method Toilet Toilet Toilet # Voids 2 1 1 - Exam Abdomen: Soft, nondistended, nontender - Labs CBC & Chem 7: 07/16/23 07:52 07/14/23 09:03 Labs: Abnormal Lab Results - Last 24 Hours (Table) 07/15/23 07/16/23 Range/Units 09:18 07:52 RBC 3.25 L (3.80-5.40) m/uL Hgb 9.3 L (11.4-16.0) gm/dL Hct 30.1 L (34.0-46.0) % MCHC 30.9 L (31.0-37.0) g/dL Iron 40 L (50-170) UG/DL Assessment and Plan (1) Abdominal pain Narrative/Plan: Patient doing better today. Continue full liquids. No further surgical plans unless pain recurs. If pain recurs consider EGD or further workup of underlying gallstones. Current Visit: Yes Status: Acute Code(s): R10.9 - UNSPECIFIED ABDOMINAL PAIN SNOMED Code(s): 40753164
--- NOTE | 2023-07-16 13:37 | P.PN ---
Subjective Progress Note Date: 07/16/23 72-year-old -[place] female patient was suspected to pulmonary embolism and pulmonary consultation was requested. The patient came in with some nonspecific chest pain with breathing. She had a VQ scan that showed intermediate probability ended up of lower extremities were negative. Nevertheless, she had an elevated d-dimer. She was started on anticoagulation and she is currently on Xarelto. Her creatinine is at 1.1. She is currently on room air oxygen. She is free of any chest pain or shortness of breath. She has no specific complaints. She lives at [facility] . She denies having any previous history of DVT or pulmonary embolism. She is essentially poor historian. She was also complaining of some abdominal pain and general surgery has been consulted. CAT scan of the abdomen showed small bilateral pleural effusions. There was cholelithiasis. No other acute abnormalities seen. No abdominal distention. No diarrhea. No emesis. No bleeding. White cell cause of 40 with a hemoglobin of 10 and a platelet count of 377. Creatinine is at 0.8 with a BUN of 34. She is alert and communicating. She denies having any other specific complaints for today. Echo of the heart was also completed and the patient was found to have a normal LV, normal ejection fraction, no significant pulmonary hypertension. No other abnormalities. On today's evaluation of 07/15/2020, the patient is resting comfortably in bed. CT antigram of the chest was done and it showed no evidence of any pulmonary embolism. Based on that, the anti-coagulation was discontinued. The patient however has small bilateral pleural effusions. She'll be given a dose of Lasix today to assess her response to diuretics. Note that her echo was noted to be within normal limits. She has a preserved LV function with an EF of around 55- 60%. No significant valvular abnormalities. She denies having any chest pain. No other new complaints otherwise for now. She remains on room air oxygen. He is also on Aldactone 12.5 mg twice a day. She is on metoprolol 12.5 mg by mouth once a day. No reported aspiration. On today's evaluation of 07/16/2023, patient is doing well. No specific complaints. No evidence of any pulmonary embolism as mentioned. The patient bilateral pleural effusions, small and the patient was given Lasix and she is currently receiving Lasix 40 mg IV every 24 hours. She is at least 1 L fluid negative over the past 24 hours. She is also on Aldactone. She is on room air oxygen. Lunesta or difficulties for now. She is essentially poor historian. Labs showed evidence of 10.2, hemoglobin is 9.3 and the patient has iron deficiency in this may need to be worked up at the later stage. Objective - Vital Signs Vital signs: Vital Signs Temp 97.8 F 07/16/23 08:12 Pulse 97 07/16/23 08:15 Resp 16 07/16/23 08:15 BP 112/71 07/16/23 08:12 Pulse Ox 99 07/16/23 08:12 FiO2 Intake & Output 07/15/23 07/16/23 07/16/23 18:59 06:59 18:59 Intake Total 474 20 250 Output Total 200 Balance 474 20 50 Weight 71.7 kg Intake: IV 20 20 10 Invasive Line 2 20 20 10 Oral 454 240 Output: Urine 200 Other: Voiding Method Toilet Toilet Toilet # Voids 2 1 1 - Exam GENERAL: BMI 24, declining but awake comfortable. The patient is currently on room air oxygen. EYES: Pupils equal. Conjunctiva normal. HEENT: External appearance of nose and ears normal, oral cavity grossly normal. NECK: JVD not raised; masses not palpable. HEART: First and second heart sounds are normal; no edema. LUNGS: Respiratory rate normal; creased breath sounds. ABDOMEN: Soft, nontender, liver spleen not palpable, no masses palpable. MUSCULOSKELETAL:No Clubbing/cyanosis;muscles-grossly intact. No NEUROLOGICAL: Cranial nerves grossly intact; no facial asymmetry, power and sensation grossly intact. LYMPHATICS: No lymph nodes palpable in the axilla and neck - Labs CBC & Chem 7: 07/16/23 07:52 07/14/23 09:03 Labs: Abnormal Lab Results - Last 24 Hours (Table) 07/15/23 07/16/23 Range/Units 09:18 07:52 RBC 3.25 L (3.80-5.40) m/uL Hgb 9.3 L (11.4-16.0) gm/dL Hct 30.1 L (34.0-46.0) % MCHC 30.9 L (31.0-37.0) g/dL Iron 40 L (50-170) UG/DL Assessment and Plan Plan: Nonspecific chest pain, no clear indication for pulmonary embolism. VQ scan was of a intermediate probability. Doppler of the lower extremity was negative. The patient had elevated d-dimer. No evidence of any pulmonary hypertension. No hypoxemia. No shortness of breath. CT antigram of the chest was negative for any pulmonary embolism. The patient has small bilateral pleural effusions. Bilateral pleural effusions currently on IV Lasix and the patient is negative fluid balance Iron deficiency anemia, currently stable Abdominal pain, cholelithiasis without any significant intra-abdominal abnormalities and she is currently asymptomatic Dementia with cognitive impairments Hypertension Hypothyroidism COPD with is currently inactive and stable Glaucoma Plan Stop anticoagulation Continue Lasix 40 m IV push 1 Continue Aldactone General surgery regarding the abdominal pain, she is stable for now Workup for iron deficiency anemia. If no colonoscopy has been done, this is to be performed either during this current hospitalization or later on on outpatient basis. Consider oral iron supplementation We'll continue to follow
--- NOTE | 2023-07-16 18:11 | P.PN ---
Progress Note - Text Progress Note Date: 07/16/23 Chief Complaint: Chest pain This is a 72-year-old patient, follows with Dr. Cruz. Chronic stable medical condition include COPD, hypertension, hyperlipidemia, hypothyroid, Patient is not a good historian has underlying cognitive impairment. Patient lives at [facility]. Aspirin the EMS report patient had been complaining of abdominal pain and she had been vomiting all night. Patient had some bump in her troponin for which cardiology was consulted. Patient pain lasted for some time but she also talks about chest pain. She is not sure she had any perspiration. Has been having bowel movements. VQ scan done this morning showed intermediate probability and patient was started on IV heparin. 07/14/2023: Patient enlarged dark bowel movement last night. IV heparin was discontinued. This morning chest CT was ordered. Negative for PE. I comm unicated with Dr. Hall. Given negative ultrasound of the lower extremity. PE therefore unlikely. We'll stop Xarelto. I spoke to the on-call surgeon Dr. Guevara-. Discussed the case. No further intervention from his standpoint. PPI to continue. 07/15/2023: No abdominal pain. Liquid diet. Hemoglobin 9.5. Xarelto was discontinued yesterday because of the negative chest CTA. Probable upper GI bleed. 07/16/2023: Full liquids today. Advance to soft bland diet in a.m.. Currently not for the intervention per surgery.. Active Medications Acetaminophen (Acetaminophen Tab 325 Mg Tab) 650 mg PO Q6H PRN PRN Reason: Moderate Pain (Scale 4 to 6) Atorvastatin Calcium (Atorvastatin 20 Mg Tab) 20 mg PO HS [facility] Last Admin: 07/15/23 19:37 Dose: 20 mg Dorzolamide/Timolol (Dorzolamide-Timolol 2.23%/0.68 10ml Btl) 1 drops BOTH EYES BID [facility] Last Admin: 07/16/23 08:15 Dose: 1 drops Furosemide (Furosemide 10 Mg/Ml 4 Ml Vial) 40 mg IV DAILY [facility] Last Admin: 07/16/23 08:15 Dose: 40 mg Latanoprost (Latanoprost 0.005% Ophth Drops 2.5 Ml Btl) 1 drops BOTH EYES HS [facility] Last Admin: 07/15/23 19:38 Dose: Not Given Levothyroxine Sodium (Levothyroxine 50 Mcg Tab) 50 mcg PO DAILY@0700 [facility] Last Admin: 07/16/23 06:27 Dose: 50 mcg Metoprolol Succinate (Metoprolol Succinate (Er) 25 Mg Tab.Er.24h) 12.5 mg PO DAILY [facility] Last Admin: 07/16/23 08:14 Dose: 12.5 mg Nitroglycerin (Nitroglycerin Sl Tabs 0.4 Mg Tab) 0.4 mg SUBLINGUAL Q5M PRN PRN Reason: Chest Pain Pantoprazole Sodium (Pantoprazole 40 Mg Tablet) 40 mg PO AC-BRKFST [facility] Last Admin: 07/16/23 06:27 Dose: 40 mg Pantoprazole Sodium (Pantoprazole 40 Mg/10 Ml Vial) 40 mg IVP BID [facility] Last Admin: 07/16/23 08:15 Dose: 40 mg Spironolactone (Spironolactone 25 Mg Tab) 12.5 mg PO DAILY [facility] Last Admin: 07/16/23 08:15 Dose: 12.5 mg Social history: Patient started smoking in her 20s and a light smoker. Currently at [facility]. No alcohol history. Physical examination: VITAL SIGNS: 98.2, 93, 16, 107/77, 100% room air GENERAL: Laying in bed, comfortable EYES: Pupils equal. Conjunctiva normal. HEENT: External appearance of nose and ears normal, oral cavity grossly normal. NECK: JVD not raised; masses not palpable. HEART: First and second heart sounds are normal; no edema. LUNGS: Respiratory rate normal; creased breath sounds. ABDOMEN: Soft, nontender, liver spleen not palpable, no masses palpable. PSYCH: Able tonsil simple questions. Not sure about a year. Noses June. Knows that she in the hospital.l. MUSCULOSKELETAL:No Clubbing/cyanosis;muscles-grossly intact. No INVESTIGATIONS, reviewed in the clinical context: 07/16/2023: Hemoglobin 9.3 July 15: Hemoglobin 9.5 07/14/2023: White count 14 hemoglobin 9.7 platelets 372 White count 24.7 hemoglobin 13.9 platelets 461 sodium 129 potassium 5.1 BUN 35 creatinine 1.13 Lactic acid 3.1 peak 4.9 Troponin I 0.114, 0.142 EKG tracing personally reviewed by me-sinus tachycardia Abdominal x-ray: Fecal material and gas and demonstrated throughout the colon and rectum. CT abdomen pelvis: Small to moderate bilateral pleural effusion. Gallstones. VQ scan: Intermediate probably due for PE Doppler ultrasound negative for DVT in both the right and left leg Assessment and plan: -Intermediate probability for PE. Not a very good historian. Had complained of some chest pain in the ER. Started on IV heparin and will be changed over to Xarelto. Chest CTA: Negative for PE. In the setting of negative Dopplers on for lower extremity DVT. And possibly bleeding. GI. Stop Xarelto. -Suspicious for upper GI bleed with history of coffee ground emesis and dark stools. In drop in hemoglobin.. Protonix. General surgery following-currently not planning for any EGD.. Follow H&H -Gallstones -Acute blood loss anemia likely from GI bleed. Follow H&H. -Moderate cognitive impairment -Essential hypertension Toprol-XL -Hypothyroid Levoxyl -Significant obstipation as per x-ray computed tomography scan of the abdomen CC laxative Changed to soft diet in the morning Past Medical History Past Medical History: Asthma, COPD, Eye Disorder, Hyperlipidemia, Hypertension, Pneumonia, Thyroid Disorder Additional Past Medical History / Comment(s): Bronchitis, hypothyroid, L eye glaucoma. History of Any Multi-Drug Resistant Organisms: None Reported Past Surgical History: Tubal Ligation Additional Past Surgical History / Comment(s): bilateral cataract surgery Past Anesthesia/Blood Transfusion Reactions: No Reported Reaction Past Psychological History: No Psychological Hx Reported Smoking Status: Former smoker Past Alcohol Use History: None Reported, Daily Past Drug Use History: None Reported
[2023-07-16] MEDS: LATANOPROST 0.005% OPHTH DROPS 2.5 ML BTL BOTH EYES SCH (21:22)
[2023-07-16] MEDS: ATORVASTATIN 20 MG TAB PO SCH (21:22)
[2023-07-17] MEDS: LEVOTHYROXINE 50 MCG TAB PO SCH (06:18)
[2023-07-17] MEDS: PANTOPRAZOLE 40 MG TABLET PO SCH (06:18)
[2023-07-17 07:03] VITALS: RESP 18
[2023-07-17] MEDS: DORZOLAMIDE-TIMOLOL 2.23%/0.68 10ML BTL BOTH EYES SCH (09:39)
[2023-07-17] MEDS: SPIRONOLACTONE 25 MG TAB PO SCH (09:39)
[2023-07-17] MEDS: PANTOPRAZOLE 40 MG/10 ML VIAL IVP SCH (09:40)
[2023-07-17] MEDS: METOPROLOL SUCCINATE (ER) 25 MG TAB.ER.24H PO SCH (09:40)
[2023-07-17] MEDS: FUROSEMIDE 10 MG/ML 4 ML VIAL IV SCH (09:40)
[2023-07-17 13:07] VITALS: BP 101/69; PULSE 85; TEMP 97.7
--- NOTE | 2023-07-17 13:33 | P.DS ---
Providers Date of admission: 07/12/23 14:50 Expected date of discharge: 07/17/23 Attending physician: Shane Romero Consults: 07/13/23 10:21 Consult Physician Routine Consulting Provider: Maria G Hall Consult Reason/Comments: elevated d-dimer, possible PE Do you want consulting provider notified?: Yes 07/13/23 17:34 Consult Physician Routine Consulting Provider: Demarcus Olivarez Consult Reason/Comments: Abdominal pain Do you want consulting provider notified?: Yes Primary care physician: [facility] Course: Chief Complaint: Chest pain This is a 72-year-old patient, follows with Dr. Cruz. Chronic stable medical condition include COPD, hypertension, hyperlipidemia, hypothyroid, Patient is not a good historian has underlying cognitive impairment. Patient lives at [facility]. Aspirin the EMS report patient had been complaining of abdominal pain and she had been vomiting all night. Patient had some bump in her troponin for which cardiology was consulted. Patient pain lasted for some time but she also talks about chest pain. She is not sure she had any perspiration. Has been having bowel movements. VQ scan done this morning showed intermediate probability and patient was started on IV heparin. 07/14/2023: Patient enlarged dark bowel movement last night. IV heparin was discontinued. This morning chest CT was ordered. Negative for PE. I communicated with Dr. Hall. Given negative ultrasound of the lower extremity. PE therefore unlikely. We'll stop Xarelto. I spoke to the on-call surgeon Dr. Guevara-. Discussed the case. No further intervention from his standpoint. PPI to continue. 07/15/2023: No abdominal pain. Liquid diet. Hemoglobin 9.5. Xarelto was discontinued yesterday because of the negative chest CTA. Probable upper GI bleed. 07/16/2023: Full liquids today. Advance to soft bland diet in a.m.. Currently not for the intervention per surgery.. 07/17/2023: Patient on a soft chopped diet. Does not like hospital food. No abdominal pain. Comfortable. Patient aspirin has been discontinued. Patient to follow with Dr. Olivarez outpatient. Return to [facility]. Repeat CBC in 2 days. Social history: Patient started smoking in her 20s and a light smoker. Currently at [facility]. No alcohol history. Physical examination: VITAL SIGNS: 97.7, 85, 18, 101/69, 100% room air GENERAL: Up in a chair, comfortable EYES: Pupils equal. Conjunctiva normal. HEENT: External appearance of nose and ears normal, oral cavity grossly normal. NECK: JVD not raised; masses not palpable. HEART: First and second heart sounds are normal; no edema. LUNGS: Respiratory rate normal; creased breath sounds. ABDOMEN: Soft, nontender, liver spleen not palpable, no masses palpable. PSYCH: Answering questions [Not sure about a year. June. Knows that she in the hospital.l. MUSCULOSKELETAL:No Clubbing/cyanosis;muscles-grossly intact. No INVESTIGATIONS, reviewed in the clinical context: 07/16/2023: Hemoglobin 9.3 July 15: Hemoglobin 9.5 07/14/2023: White count 14 hemoglobin 9.7 platelets 372 White count 24.7 hemoglobin 13.9 platelets 461 sodium 129 potassium 5.1 BUN 35 creatinine 1.13 Lactic acid 3.1 peak 4.9 Troponin I 0.114, 0.142 EKG tracing personally reviewed by me-sinus tachycardia Abdominal x-ray: Fecal material and gas and demonstrated throughout the colon and rectum. CT abdomen pelvis: Small to moderate bilateral pleural effusion. Gallstones. VQ scan: Intermediate probably due for PE Doppler ultrasound negative for DVT in both the right and left leg Assessment and plan: -Intermediate probability for PE. Not a very good historian. Had complained of some chest pain in the ER. Started on IV heparin and will be changed over to Xarelto. Chest CTA: Negative for PE. In the setting of negative Dopplers on for lower extremity DVT. And possibly bleeding. GI. Stop Xarelto. -Suspicious for upper GI bleed with history of coffee ground emesis and dark stools. Had some drop in hemoglobin.. Protonix. General surgery following-currently not planning for any EGD.. [id number] outpatient -Gallstones -Acute blood loss anemia likely from GI bleed. Follow H&H. -Moderate cognitive impairment -Essential hypertension Toprol-XL -Hypothyroid Levoxyl -Significant obstipation as per x-ray computed tomography scan of the abdomen CC laxative Disposition: [facility] Labs: CBC: 2 days Past Medical History Past Medical History: Asthma, COPD, Eye Disorder, Hyperlipidemia, Hypertension, Pneumonia, Thyroid Disorder Additional Past Medical History / Comment(s): Bronchitis, hypothyroid, L eye glaucoma. History of Any Multi-Drug Resistant Organisms: None Reported Past Surgical History: Tubal Ligation Additional Past Surgical History / Comment(s): bilateral cataract surgery Past Anesthesia/Blood Transfusion Reactions: No Reported Reaction Past Psychological History: No Psychological Hx Reported Smoking Status: Former smoker Past Alcohol Use History: None Reported, Daily Past Drug Use History: None Reported Plan - Discharge Summary Discharge Rx Participant: Yes New Discharge Prescriptions: New Pantoprazole [Protonix] 40 mg PO AC-BRKFST tab Continue Dorzolamide-Timol 2.23%/0.68% [Cosopt] 1 drop BOTH EYES BID Levothyroxine Sodium [Levoxyl] 50 mcg PO DAILY@0700 Latanoprost [Latanoprost 0.005%] 1 drop BOTH EYES HS Metoprolol Succinate (ER) [Toprol XL] 12.5 mg PO DAILY Acetaminophen [Tylenol] 650 mg PO Q6H PRN PRN Reason: Moderate Pain (Scale 4 To 6) Spironolactone [Aldactone] 12.5 mg PO DAILY Atorvastatin [Lipitor] 20 mg PO HS Discontinued Aspirin 81 mg PO DAILY #90 lisinopriL [Zestril] 5 mg PO HS Discharge Medication List Acetaminophen [Tylenol] 650 mg PO Q6H PRN 07/12/23 [History] Atorvastatin [Lipitor] 20 mg PO HS 07/12/23 [History] Dorzolamide-Timol 2.23%/0.68% [Cosopt] 1 drop BOTH EYES BID 07/12/23 [History] Latanoprost [Latanoprost 0.005%] 1 drop BOTH EYES HS 07/12/23 [History] Levothyroxine Sodium [Levoxyl] 50 mcg PO DAILY@0700 07/12/23 [History] Metoprolol Succinate (ER) [Toprol XL] 12.5 mg PO DAILY 07/12/23 [History] Spironolactone [Aldactone] 12.5 mg PO DAILY 07/12/23 [History] Pantoprazole [Protonix] 40 mg PO AC-BRKFST tab 07/17/23 [Rx] Follow up Appointment(s)/Referral(s): Demarcus Olivarez MD [Medical Doctor] - 2 Weeks Jean Cruz DO [Primary Care Provider] - 1-2 days
--- NOTE | 2023-07-17 15:28 | P.PN ---
Subjective Progress Note Date: 07/17/23 Principal diagnosis: Atypical chest pain 72-year-old -[place] female patient was suspected to pulmonary embolism and pulmonary consultation was requested. The patient came in with some nonspecific chest pain with breathing. She had a VQ scan that showed intermediate probability ended up of lower extremities were negative. Nevertheless, she had an elevated d-dimer. She was started on anticoagulation and she is currently on Xarelto. Her creatinine is at 1.1. She is currently on room air oxygen. She is free of any chest pain or shortness of breath. She has no specific complaints. She lives at [facility] . She denies having any previous history of DVT or pulmonary embolism. She is essentially poor historian. She was also complaining of some abdominal pain and general surgery has been consulted. CAT scan of the abdomen showed small bilateral pleural effusions. There was cholelithiasis. No other acute abnormalities seen. No abdominal distention. No diarrhea. No emesis. No bleeding. White cell cause of 40 with a hemoglobin of 10 and a platelet count of 377. Creatinine is at 0.8 with a BUN of 34. She is alert and communicating. She denies having any other specific complaints for today. Echo of the heart was also completed and the pat ient was found to have a normal LV, normal ejection fraction, no significant pulmonary hypertension. No other abnormalities. On today's evaluation of 07/15/2020, the patient is resting comfortably in bed. CT antigram of the chest was done and it showed no evidence of any pulmonary embolism. Based on that, the anti-coagulation was discontinued. The patient however has small bilateral pleural effusions. She'll be given a dose of Lasix today to assess her response to diuretics. Note that her echo was noted to be within normal limits. She has a preserved LV function with an EF of around 55- 60%. No significant valvular abnormalities. She denies having any chest pain. No other new complaints otherwise for now. She remains on room air oxygen. He is also on Aldactone 12.5 mg twice a day. She is on metoprolol 12.5 mg by mouth once a day. No reported aspiration. On today's evaluation of 07/16/2023, patient is doing well. No specific complaints. No evidence of any pulmonary embolism as mentioned. The patient bilateral pleural effusions, small and the patient was given Lasix and she is currently receiving Lasix 40 mg IV every 24 hours. She is at least 1 L fluid negative over the past 24 hours. She is also on Aldactone. She is on room air oxygen. Lunesta or difficulties for now. She is essentially poor historian. Labs showed evidence of 10.2, hemoglobin is 9.3 and the patient has iron deficiency in this may need to be worked up at the later stage. Reevaluated today on 07/17/2023, patient is doing great, asymptomatic, no cough no wheezing no shortness of breath no chest pain Objective - Vital Signs Vital signs: Vital Signs Temp 97.7 F 07/17/23 12:37 Pulse 85 07/17/23 12:37 Resp 18 07/17/23 14:00 BP 101/69 07/17/23 12:37 Pulse Ox 100 07/17/23 12:37 FiO2 Intake & Output 07/16/23 07/17/23 07/17/23 18:59 06:59 18:59 Intake Total 860 260 256 Output Total 200 Balance 660 260 256 Intake: IV 20 20 20 Invasive Line 2 20 20 20 Oral 840 240 236 Output: Urine 200 Other: Voiding Method Toilet Toilet Toilet # Voids 1 1 1 - Exam GENERAL: Revealed a 72-year-old female in no distress EYES: Pupils equal. Conjunctiva normal. HEENT: External appearance of nose and ears normal, oral cavity grossly normal. NECK: JVD not raised; masses not palpable. HEART: First and second heart sounds are normal; no edema. LUNGS: Symmetrical chest expansion clear bilaterally no rhonchi no wheezes ABDOMEN: Soft, nontender, liver spleen not palpable, no masses palpable. MUSCULOSKELETAL:No Clubbing/cyanosis;muscles-grossly intact. No NEUROLOGICAL: Alert and oriented 3 no gross focal deficit - Labs CBC & Chem 7: 07/16/23 07:52 07/14/23 09:03 Assessment and Plan Assessment: Impression Atypical chest Bilateral pleural effusions, nonspecific treated with IV Lasix since admission Iron deficiency anemia, currently stable Abdominal pain, cholelithiasis without any significant intra-abdominal abnorm alities and she is currently asymptomatic Dementia with cognitive impairments Hypertension Hypothyroidism COPD, presently stable Recommendation: Patient is doing well, Continue present medications, Surgery has been addressing her abdominal pain and been nonspecific Needs outpatient workup for iron deficiency anemia Continue oral iron supplements Will clear the patient for discharge from the pulmonary perspective if cleared by other consultants Time with Patient: Less than 30
--- NOTE | 2023-07-17 15:49 | P.PN ---
Subjective Progress Note Date: 07/17/23 CHIEF COMPLAINT: Abdominal pain HISTORY OF PRESENT ILLNESS: Patient denies any abdominal pain. Denies any nausea or vomiting. She does report a decreased appetite but reports that she does not like hospital food. She also reports overall feeling better. White count is down from 11-10.2. Patient feels ready for discharge. PHYSICAL EXAM: VITAL SIGNS: Reviewed. GENERAL: Well-developed in no acute distress. ABDOMEN: Soft. Nondistended. Nontender. NEUROLOGIC: Alert and oriented. Cranial nerves II through XII grossly intact. ASSESSMENT: 1. Epigastric Abdominal pain. Resolved. Tolerating diet. 2. Cholelithiasis PLAN: -No surgical intervention planned -If pain recurs consider EGD or further workup of underlying gallstones Physician Shank Taper note has been reviewed by physician. Signing provider agrees with the documented findings, assessment, and plan of care. Objective - Vital Signs Vital signs: Vital Signs Temp 97.7 F 07/17/23 12:37 Pulse 85 07/17/23 12:37 Resp 18 07/17/23 12:37 BP 101/69 07/17/23 12:37 Pulse Ox 100 07/17/23 12:37 FiO2 Intake & Output 07/16/23 07/17/23 07/17/23 18:59 06:59 18:59 Intake Total 860 260 128 Output Total 200 Balance 660 260 128 Intake: IV 20 20 10 Invasive Line 2 20 20 10 Oral 840 240 118 Output: Urine 200 Other: Voiding Method Toilet Toilet Toilet # Voids 1 1 - Labs CBC & Chem 7: 07/16/23 07:52 07/14/23 09:03
== END 2023-07-17 16:00 | disposition short-term general hospital (02) | DRG 377 ==
LOC: EC 09:52 → 3SCARD 14:50 → OBSVTOIN 14:50 → 3SCARD 22:38
PROVIDERS: ADMIT Hospitalist; ATTEND Hospitalist
DX: K92.1 Melena (principal); I21.A1 Myocardial infarction type 2; D62 Acute posthemorrhagic anemia; K80.10 Calculus of gallbladder with chronic cholecystitis without obstruction; I50.32 Chronic diastolic (congestive) heart failure; E03.9 Hypothyroidism, unspecified; Z79.890 Hormone replacement therapy; E78.5 Hyperlipidemia, unspecified; F03.90 Unspecified dementia, unspecified severity, without behavioral disturbance, psychotic disturbance, mood disturbance, and anxiety; G89.29 Other chronic pain; I07.1 Rheumatic tricuspid insufficiency; R00.0 Tachycardia, unspecified; I11.0 Hypertensive heart disease with heart failure; K20.90 Esophagitis, unspecified without bleeding; Z79.82 Long term (current) use of aspirin; Z79.899 Other long term (current) drug therapy; Z87.11 Personal history of peptic ulcer disease; Z98.51 Tubal ligation status; Z98.42 Cataract extraction status, left eye; Z98.41 Cataract extraction status, right eye
CPT/HCPCS: 36415; 71275; 74022; 74177; 78582; 80053; 80061; 82565; 83540; 83550; 83605; 83690; 83735; 84484; 84520; 85025; 85027; 85379; 85610; 85730; 93005; 93306; 93970; 96361; 96365; 96375; 99285

== ENCOUNTER → 2023-09-11 | Outpatient (CLI) | payer MEDICARE, OTHER ==
[2023-09-11 15:35] LABS: HCT 37.5 % (37.2-46.3); HGB 11.5 g/dL (12.0-15.0); MCH 26.9 pg (27.0-32.0); MCHC 30.7 g/dL (32.0-37.0); MCV 87.6 FL (80.0-97.0); Mean Platelet Volume 10.9 FL (9.5-12.2); NRBC Per 100 WBC 0 X 10*3/uL (0.00-0.01); Platelet Count 377 X 10*3/uL (140-440); RBC 4.28 X 10*6/uL (4.10-5.20); RDW 14.7 % (11.5-14.5); WBC 5.58 X 10*3/uL (4.50-10.00)
[2023-09-11 16:07] LABS: % Iron Saturation 13.37 (12.00-45.00); ALT 8 U/L (8-44); AST 19 U/L (13-35); Albumin 4.5 g/dL (3.8-4.9); Albumin/Globulin Ratio 1.41 Ratio (1.60-3.17); Alkaline Phosphatase 114 U/L (41-126); Blood Urea Nitrogen 13.6 mg/dL (9.0-27.0); Calcium 10.3 mg/dL (8.7-10.3); Carbon Dioxide 25.6 mmol/L (21.6-31.8); Chloride 102 mmol/L (96-109); Ferritin 19.4 ng/mL (10.0-291.0); Globulin 3.2 g/dL (1.6-3.3); Glucose 108 mg/dL (70-110); Iron 56 UG/DL (50-170); Potassium 4.4 mmol/L (3.5-5.5); Sodium 140 mmol/L (135-145); Total Bilirubin 0.6 mg/dL (0.3-1.2); Total Iron Binding Capacity 419 UG/DL (228-460); Total Protein 7.7 g/dL (6.2-8.2)
== END | disposition home or self-care (01) ==
LOC: LABWHC1 09:14
PROVIDERS: ATTEND Family Medicine
DX: I12.9 Hypertensive chronic kidney disease with stage 1 through stage 4 chronic kidney disease, or unspecified chronic kidney disease (principal); D62 Acute posthemorrhagic anemia; E03.9 Hypothyroidism, unspecified; J44.9 Chronic obstructive pulmonary disease, unspecified; N18.9 Chronic kidney disease, unspecified
CPT/HCPCS: 36415; 80053; 82728; 83036; 83540; 83550; 84439; 84443; 84481; 85027

== ENCOUNTER → 2023-11-09 | Outpatient (CLI) | payer MEDICARE, OTHER ==
[2023-11-09 15:42] LABS: HGB 11.7 g/dL (12.0-15.0); MCH 25.9 pg (27.0-32.0); MCHC 29.3 g/dL (32.0-37.0); MCV 88.5 FL (80.0-97.0); Mean Platelet Volume 10.8 FL (9.5-12.2); NRBC Per 100 WBC 0 X 10*3/uL (0.00-0.01); Platelet Count 357 X 10*3/uL (140-440); RBC 4.52 X 10*6/uL (4.10-5.20); RDW 15.9 % (11.5-14.5)
[2023-11-09 16:17] LABS: ALT 7 U/L (8-44); AST 18 U/L (13-35); BUN/Creat Ratio 17.62 Ratio (12.00-20.00); Blood Urea Nitrogen 14.1 mg/dL (9.0-27.0); Carbon Dioxide 26.3 mmol/L (21.6-31.8); Chloride 105 mmol/L (96-109); Glucose 116 mg/dL (70-110); Potassium 4.2 mmol/L (3.5-5.5); Sodium 143 mmol/L (135-145); T4, Free (Free Thyroxine) 1.65 ng/dL (0.80-1.80)
== END | disposition home or self-care (01) ==
LOC: LABWHC1 07:49
PROVIDERS: ATTEND Family Medicine
DX: E03.9 Hypothyroidism, unspecified (principal)
CPT/HCPCS: 36415; 80048; 82306; 84439; 84443; 84450; 84460; 84481; 85027

== ENCOUNTER → 2024-04-02 | Outpatient (CLI) | payer MEDICARE, OTHER ==
[2024-04-02 15:54] LABS: BUN/Creat Ratio 10.33 Ratio (12.00-20.00); Blood Urea Nitrogen 9.3 mg/dL (9.0-27.0); Glucose 112 mg/dL (70-110)
[2024-04-02 15:55] LABS: Calcium 9.7 mg/dL (8.7-10.3); Carbon Dioxide 23.8 mmol/L (21.6-31.8); Chloride 102 mmol/L (96-109); Potassium 4.4 mmol/L (3.5-5.5); Sodium 139 mmol/L (135-145); T4, Free (Free Thyroxine) 1.19 ng/dL (0.80-1.80)
[2024-04-02 15:56] LABS: HCT 41.4 % (37.2-46.3); HGB 12.8 g/dL (12.0-15.0); MCH 27.2 pg (27.0-32.0); MCHC 30.9 g/dL (32.0-37.0); MCV 88.1 FL (80.0-97.0); Mean Platelet Volume 12.3 FL (9.5-12.2); NRBC Per 100 WBC 0 X 10*3/uL (0.00-0.01); Platelet Count 315 X 10*3/uL (140-440); RDW 15.9 % (11.5-14.5); WBC 7.53 X 10*3/uL (4.50-10.00)
== END ==
LOC: LABWHC1 10:41
PROVIDERS: ATTEND Family Medicine
DX: Z00.00 Encounter for general adult medical examination without abnormal findings (principal)
CPT/HCPCS: 36415; 80048; 82306; 84439; 84443; 85027

== ENCOUNTER → 2024-05-20 | Outpatient (CLI) | payer MEDICARE, OTHER ==
[2024-05-20 15:00] LABS: Basophils # (A) 0.04 X 10*3/uL (0.00-0.10); Basophils % (A) 0.7 %; Eosinophils % (A) 3.3 %; HCT 38.5 % (37.2-46.3); HGB 11.8 g/dL (12.0-15.0); Lymphocytes # (A) 2.23 X 10*3/uL (0.90-5.00); Lymphocytes % (A) 37.1 %; MCH 27.5 pg (27.0-32.0); MCHC 30.6 g/dL (32.0-37.0); MCV 89.7 FL (80.0-97.0); Mean Platelet Volume 10.8 FL (9.5-12.2); Monocytes # (A) 0.39 X 10*3/uL (0.20-1.00); Monocytes % (A) 6.5 %; NRBC Per 100 WBC 0 X 10*3/uL (0.00-0.01); Neutrophils # (A) 3.12 X 10*3/uL (1.80-7.70); Neutrophils % (A) 51.9 %; Platelet Count 326 X 10*3/uL (140-440); RBC 4.29 X 10*6/uL (4.10-5.20); RDW 15.6 % (11.5-14.5); WBC 6.01 X 10*3/uL (4.50-10.00)
[2024-05-20 15:38] LABS: ALT 9 U/L (8-44); AST 19 U/L (13-35); BUN/Creat Ratio 23.14 Ratio (12.00-20.00); Blood Urea Nitrogen 16.2 mg/dL (9.0-27.0); Calcium 9.6 mg/dL (8.7-10.3); Carbon Dioxide 24.4 mmol/L (21.6-31.8); Chloride 104 mmol/L (96-109); Glucose 93 mg/dL (70-110); LDL Cholesterol,Calculated 108.5 mg/dL (0.0-131.0); Potassium 4.5 mmol/L (3.5-5.5); Sodium 139 mmol/L (135-145); T4, Free (Free Thyroxine) 1.13 ng/dL (0.80-1.80)
== END | disposition home or self-care (01) ==
LOC: LABWHC1 08:26
PROVIDERS: ATTEND Family Medicine
DX: E55.9 Vitamin D deficiency, unspecified (principal); E03.9 Hypothyroidism, unspecified; D64.9 Anemia, unspecified; J44.9 Chronic obstructive pulmonary disease, unspecified; N18.9 Chronic kidney disease, unspecified; F03.90 Unspecified dementia, unspecified severity, without behavioral disturbance, psychotic disturbance, mood disturbance, and anxiety
CPT/HCPCS: 36415; 80048; 80061; 82306; 83036; 84439; 84443; 84450; 84460; 85025

== ENCOUNTER → 2024-07-04 | Outpatient (CLI) | payer MEDICARE, OTHER ==
[2024-07-04 16:27] LABS: T4, Free (Free Thyroxine) 1.27 ng/dL (0.80-1.80)
== END | disposition home or self-care (01) ==
LOC: LABWHC1 08:09
PROVIDERS: ATTEND Family Medicine
DX: E03.9 Hypothyroidism, unspecified (principal)
CPT/HCPCS: 36415; 84439; 84443